=== PATIENT | female | born 1970 | race Caucasian/White ===

== ENCOUNTER → 2024-12-02 | Outpatient (CLI) | payer BC ==
--- NOTE | 2024-12-03 08:46 | CTL ---
EXAMINATION TYPE: CT Low Dose Lung DATE OF EXAM: 12/02/2024 4:14 PM COMPARISON: None. SCREENING VISIT: Initial CT DIAGNOSTIC QUALITY: Satisfactory CLINICAL INDICATION: Female, 54 years old with history of Z12.2 Screening; Z87.891, Former smoker, 1 ppd x 20 years, Lung cancer screening, History of tobacco use. TECHNIQUE: Low dose computed tomography scan was performed through the chest at 1 mm thick sections a nd reconstructed images in the coronal plane at 1 mm thick sections. Contrast used: mL of , (none if empty) Oral contrast used: (none if empty) CT DLP: 89.6 mGycm, Automated exposure control for dose reduction was used. CT CTDI: 2.6 mGy, Automated exposure control for dose reduction was used. FINDINGS: LUNG NODULES: None. LUNGS: COPD: Severity: None Fibrosis: Severity: None Lymph nodes: None Other findings: None RIGHT PLEURAL SPACE: Effusion: None Calcification: None Thickening: None Pneumothorax: None LEFT PLEURAL SPACE: Effusion: None Calcification: None Thickening: None Pneumothorax: None HEART: Other: Ascending thoracic aorta at the level the main pulmonary artery measures 3.1 cm. The main pul monary artery at the bifurcation measures 2.4 cm. Heart Size: Normal Coronary calcification: Pericardial effusion: None OTHER FINDINGS: Upper abdomen: Normal Bony thorax: Normal Supraclavicular region: Normal IMPRESSION: No suspicious changes low-dose CT chest FOLLOW UP CT CHEST RECOMMENDATION: Low dose CT chest one year CT LUNG RAD: Lung-Rad 1 Negative [facility], Workstation: [facility], 12/03/2024 8:44 AM
== END | disposition home or self-care (01) ==
LOC: RADCTMAIN 15:49
PROVIDERS: ATTEND Family Medicine
DX: Z12.2 Encounter for screening for malignant neoplasm of respiratory organs (principal); Z87.891 Personal history of nicotine dependence
CPT/HCPCS: 71271

== ENCOUNTER 2025-01-24 12:53 | Observation (INO) | payer BC ==
--- NOTE | 2025-01-24 13:11 | ED ---
General Adult HPI - General Chief complaint: Weakness Stated complaint: Abd pain Time Seen by Provider: 01/24/25 13:01 Source: patient, RN notes reviewed, old records reviewed Mode of arrival: ambulatory Limitations: no limitations - History of Present Illness Initial comments: 54-year-old female presenting with poor appetite and nausea. Patient started Mounjaro several months ago and has had persistent nausea and poor appetite as well as very little stool output since initiating this medication. She denies significant abdominal pain or vomiting. This is predominantly nausea and loss of appetite. No fever. She is concerned she may be dehydrated due to poor intake. She states she has lost approximately 35 pounds. - Related Data Allergies Allergy/AdvReac Type Severity Reaction Status Date / Time Penicillins Allergy Unknown Verified 01/24/25 13:00 Review of Systems ROS Statement: Those systems with pertinent positive or pertinent negative responses have been documented in the HPI. ROS Other: All systems not noted in ROS Statement are negative. Past Medical History Past Medical History: Diabetes Mellitus History of Any Multi-Drug Resistant Organisms: None Reported Past Surgical History: Section, Tonsillectomy Additional Past Surgical History / Comment(s): breast reduction, Past Psychological History: No Psychological Hx Reported Smoking Status: Never smoker Past Alcohol Use History: None Reported Past Drug Use History: None Reported General Exam Limitations: no limitations General appearance: alert, in no apparent distress Head exam: Present: atraumatic, normocephalic Eye exam: Present: normal appearance, PERRL ENT exam: Present: mucous membranes dry Neck exam: Present: normal inspection. Absent: tenderness, meningismus Respiratory exam: Present: normal lung sounds bilaterally. Absent: respiratory distress, wheezes Cardiovascular Exam: Present: normal rhythm, tachycardia GI/Abdominal exam: Present: soft. Absent: distended, tenderness, guarding Neurological exam: Present: alert, oriented X3 Psychiatric exam: Present: normal affect, normal mood Skin exam: Present: warm, dry, intact. Absent: cyanosis, diaphoretic Course Vital Signs 01/24/25 12:56 Temperature 97.5 F L Pulse Rate 116 H Respiratory 18 Rate Blood Pressure 139/96 O2 Sat by Pulse 94 L Oximetry Medical Decision Making - Medical Decision Making Was pt. sent in by a medical professional or institution (, PA, ELECTRONIC PARTS DESIGNER, urgent care, hospital, or group home...) When possible be specific @ -No Did you speak to anyone other than the patient for history (EMS, parent, family, police, friend...)? What history was obtained from this source @ -No Did you review nursing and triage notes (agree or disagree)? Why? @ -I reviewed and agree with nursing and triage notes Were old charts reviewed (outside hosp., previous admission, EMS record, old EKG, old radiological studies, urgent care reports/EKG's, group home records)? Report findings @ -No old charts were reviewed Differential Weakness: Hypoglycemia, shock, sepsis, hyponatremia, anemia, infection, IL, ETOH, adverse medicine reaction, overdose, stroke, this is not meant to be an all-inclusive list. EKG interpreted by me (3pts min.). @ -As above X-rays interpreted by me (1pt min.). @ -None done CT interpreted by me (1pt min.). @ -None done U/S interpreted by me (1pt. min.). @ -None done What testing was considered but not performed or refused? (CT, X-rays, U/S, labs)? Why? @ -None What meds were considered but not given or refused? Why? @ -None Did you discuss the management of the patient with other professionals (professionals i.e. , PA, ELECTRONIC PARTS DESIGNER, lab, RT, psych nurse, social studies teacher, catalyst manufacturing operator, teacher, learning officer, correctional counselor/case manager)? Give summary @ -Dr. Calhoun Was smoking cessation discussed for >3mins.? @ -No Was critical care preformed (if so, how long)? @ -No Were there social determinants of health that impacted care today? How? (Homelessness, low income, unemployed, alcoholism, drug addiction, transportation, low edu. Level, literacy, decrease access to med. care, custodial, rehab)? @ -No Was there de-escalation of care discussed even if they declined (Discuss DNR or withdrawal of care, Hospice)? DNR status @ -No What co-morbidities impacted this encounter? (DM, HTN, Smoking, COPD, CAD, Cancer, CVA, ARF, Chemo, Hep., AIDS, mental health diagnosis, sleep apnea, morbid obesity)? @Diabetes, weight loss secondary to Mounjaro Was patient admitted / discharged? Hospital course, mention meds given and route, prescriptions, significant lab abnormalities, going to OR and other pertinent info. @ -54-year-old female with poor intake, nausea after being on Mounjaro. Patient is mildly tachycardic with otherwise stable vitals. She does appear dehydrated. Laboratory testing reveals normal CBC, CMP shows anion gap metabolic acidosis. Normal blood glucose. Urinalysis, venous gas, and acetone levels as well as lactic acid has been ordered, results pending. Patient will be observed for hydration. Likely mixed acidosis from starvation ketosis, dehydration. Undiagnosed new problem with uncertain prognosis? @ -No Drug Therapy requiring intensive monitoring for toxicity (Heparin, Nitro, Insulin, Cardizem)? @ -No Were any procedures done? @ -No Diagnosis/symptom? @ -Dehydration, metabolic acidosis Acute, or Chronic, or Acute on Chronic? @ -Acute Uncomplicated (without systemic symptoms) or Complicated (systemic symptoms)? @ -Default Side effects of treatment? @ -No Exacerbation, Progression, or Severe Exacerbation? @ -No Poses a threat to life or bodily function? How? (Chest pain, USA, IL, pneumonia, PE, COPD, DKA, ARF, appy, cholecystitis, CVA, Diverticulitis, Homicidal, Suicidal, threat to staff... and all critical care pts) @ -[Yes, hypovolemia, acidosis - Lab Data Result diagrams: 01/24/25 13:29 01/24/25 13:29 Lab Results 01/24/25 01/24/25 Range/Units 13:29 13:29 WBC 7.4 (3.8-10.6) k/uL RBC 5.93 H (3.80-5.40) m/uL Hgb 16.7 H (11.4-16.0) gm/dL Hct 49.5 H (34.0-46.0) % MCV 83.4 (80.0-100.0) fL MCH 28.2 (25.0-35.0) pg MCHC 33.8 (31.0-37.0) g/dL RDW 14.5 (11.5-15.5) % Plt Count 295 (150-450) k/uL MPV 8.0 Neutrophils % 71 % Lymphocytes % 22 % Monocytes % 4 % Eosinophils % 1 % Basophils % 1 % Neutrophils # 5.3 (1.3-7.7) k/uL Lymphocytes # 1.6 (1.0-4.8) k/uL Monocytes # 0.3 (0-1.0) k/uL Eosinophils # 0.1 (0-0.7) k/uL Basophils # 0.1 (0-0.2) k/uL Sodium 134 L (137-145) mmol/L Potassium 4.0 (3.5-5.1) mmol/L Chloride 96 L (98-107) mmol/L Carbon Dioxide 15 L (22-30) mmol/L Anion Gap 23 mmol/L BUN 13 (7-17) mg/dL Creatinine 0.58 (0.52-1.04) mg/dL Est GFR (CKD-EPI)AfAm >90 (>60 ml/min/1.73 sqM) Est GFR (CKD-EPI)NonAf >90 (>60 ml/min/1.73 sqM) Glucose 96 (74-99) mg/dL Calcium 9.8 (8.4-10.2) mg/dL Magnesium 1.8 (1.6-2.3) mg/dL Total Bilirubin 0.8 (0.2-1.3) mg/dL AST 35 (14-36) U/L ALT 31 (4-34) U/L Alkaline Phosphatase 78 (38-126) U/L Total Protein 7.7 (6.3-8.2) g/dL Albumin 4.6 (3.5-5.0) g/dL Disposition Clinical Impression: Dehydration, High anion gap metabolic acidosis Disposition: ADMITTED IP TO THIS [facility] Condition: Stable Is patient prescribed a controlled substance at d/c from ED?: No Referrals: Nj Castañeda MD [Primary Care Provider] - 1-2 days Time of Disposition: 14:48
[2025-01-24] MEDS: SODIUM CHLORIDE 0.9% 1,000 ML IV ONE (13:31)
[2025-01-24 13:48] LABS: Basophils # (A) 0.1 k/uL (0-0.2); Basophils % (A) 1 %; Eosinophils # (A) 0.1 k/uL (0-0.7); Eosinophils % (A) 1 %; HCT 49.5 % (34.0-46.0); HGB 16.7 gm/dL (11.4-16.0); Lymphocytes # (A) 1.6 k/uL (1.0-4.8); Lymphocytes % (A) 22 %; MCH 28.2 pg (25.0-35.0); MCHC 33.8 g/dL (31.0-37.0); MCV 83.4 fL (80.0-100.0); Monocytes # (A) 0.3 k/uL (0-1.0); Monocytes % (A) 4 %; Neutrophils # (A) 5.3 k/uL (1.3-7.7); Neutrophils % (A) 71 %; Platelet Count 295 k/uL (150-450); RBC 5.93 m/uL (3.80-5.40); RDW 14.5 % (11.5-15.5); WBC 7.4 k/uL (3.8-10.6)
--- NOTE | 2025-01-24 13:53 | XR ---
EXAMINATION TYPE: XR KUB DATE OF EXAM: 01/24/2025 1:48 PM COMPARISON: None. CLINICAL INDICATION: Female, 54 years old with history of Constipation, TECHNIQUE: Single view of the abdomen. FINDINGS: Small bowel demonstrates no evidence for dilatation or air fluid levels. Gas and fecal material is seen in non-distended colon. No convincing evidence for pneumoperitoneum. No unusual calcifications. The lung bases are clear. The osseous structures are intact. IMPRESSION: 1. Overall nonobstructive bowel gas pattern. [facility], , 01/24/2025 1:51 PM
[2025-01-24 13:58] LABS: ALT 31 U/L (4-34); AST 35 U/L (14-36); African American GFR (CKD) >90 (>60 ml/min/1.73 sqM); Albumin 4.6 g/dL (3.5-5.0); Alkaline Phosphatase 78 U/L (38-126); Anion Gap 23 mmol/L; Blood Urea Nitrogen 13 mg/dL (7-17); Calcium 9.8 mg/dL (8.4-10.2); Carbon Dioxide 15 mmol/L (22-30); Chloride 96 mmol/L (98-107); Glucose 96 mg/dL (74-99); Magnesium 1.8 mg/dL (1.6-2.3); Non-African American GFR(CKD) >90 (>60 ml/min/1.73 sqM); Sodium 134 mmol/L (137-145); Total Bilirubin 0.8 mg/dL (0.2-1.3); Total Protein 7.7 g/dL (6.3-8.2)
[2025-01-24 14:21] LABS: Appearance,Urine Cloudy (Clear); Bacteria,Urine Occasional /hpf; Bilirubin,Urine 1+ (Negative); Blood,Urine Trace (Negative); Color,Urine Yellow; Glucose,Urine (UA) Negative (Negative); Hyaline Casts,Urine 14 /lpf (0-2); Ketones,Urine 4+ (Negative); Leukocyte Esterase,Urine Negative (Negative); Mucus,Urine Moderate /hpf; Nitrite,Urine Negative (Negative); PH, Urine 5.5 (5.0-8.0); Protein,Urine 1+ (Negative); RBC,Urine 1 /hpf (0-5); Specific Gravity,Urine 1.021 (1.001-1.035); Squamous Epithelial Cell,Urine 8 /hpf (0-4); WBC,Urine 3 /hpf (0-5)
[2025-01-24] MEDS ORDERED: ACETAMINOPHEN TAB 325 MG TAB PO PRN (14:45)
[2025-01-24] MEDS ORDERED: NALOXONE 0.4 MG/ML 1 ML VIAL IV PRN (14:45)
[2025-01-24 15:10] LABS: VBG PH 7.34 (7.31-7.41)
[2025-01-24] MEDS: SODIUM CHLORIDE 0.9% 1,000 ML IV SCH (15:54)
--- NOTE | 2025-01-24 17:04 | P.HPIM ---
History of Present Illness H&P Date: 01/24/25 History of Presenting Illness: Patient is a pleasant 54-year-old female with a past medical history of type II hyf-qebkaxd-nvggtefhj diabetes mellitus. She presented to the emergency department with a chief complaint of intractable nausea and vomiting and poor oral intake. Patient reports concerns of dehydration. Reports that she was started on Mounjaro 2 months ago initially was taking 2.5 mg daily without any side effects. Patient reports 2 weeks ago she was started on 5 mg daily and instantly suffered from severe anorexia unable to tolerate oral intake, nausea, vomiting, constipation, acid reflux, and abdominal bloating. Patient reports she continued this medication as she decreased her hemoglobin A1c from 6.5% down to 5.1% and lost a total of 33 pounds. Patient reports she was due for her next dose on Thursday but went to her PCPs office on Thursday secondary to these complaints and was told to stop medication with plans to restart at lower dose possibly in 1 month. Patient reports despite missing her dose and not taking this medication she continued to have no appetite accompanied by nausea, vomiting, and constipation so she came to the emergency department for evaluation. Patient reports last bowel movement was approximately 1 week ago and was round and firm. She reports passing flatus and frequent eructations but denies experiencing any abdominal pain or discomfort reports just generalized bloating. She denies hematemesis, melena, or hematochezia. She denies having any fevers, chills, diaphoresis, headache, lightheadedness, dizziness, chest pain, palpitations, shortness of breath, cough or congestion, abdominal pain or discomfort, or experiencing any numbness/tingling/weakness/swelling in her extremities. Upon arrival to our facility, patient underwent evaluation in the emergency department. Vital signs upon arrival show blood pressure 139/96, heart rate 116, respiratory rate 18, temp 97.5 F, and SpO2 of 94% on room air. KUB completed showing overall nonobstructive bowel gas pattern, moderate stool throughout colon but no evidence of distention, dilation, or air-fluid levels. Labs completed and reviewed. CBC showing elevated hemoglobin of 16.7 and hematocrit of 49.5. BMP showing hyponatremia with sodium of 134 and high anion gap metabolic acidosis with chloride 96, bicarb of 15, and anion gap of 23. Magnesium was 1.8. Liver profile unremarkable. Urinalysis was a contaminated specimen but did show positive for ketones, trace blood, and 1+ protein and bilirubin but negative for infection. Patient was admitted under our services for dehydration and high anion gap metabolic acidosis likely starvation ketosis. Review of systems: Pertinent positives and negatives as discussed in HPI, a complete review of systems was performed and all other systems are negative. Physical exam: Vital signs reviewed and stable. General: Nontoxic, no distress and appears stated age. Derm: Skin warm and dry, normal coloration for ethnicity. Head: Atraumatic, normocephalic and symmetric. Eyes: EOM's intact, no lid lag, and anicteric sclera Mouth: no lip lesions, mucus membranes moist Cardiovascular: regular rate and rhythm with normal S1S2, no murmur, positive posterior tibial pulses bilaterally, and cap refill < 2 seconds. Lungs: Respirations even, regular, and unlabored on room air. Lungs CTA bilaterally, no rhonchi, no rales, no wheezing, and no accessory muscle usage. Abdominal: soft, nontender to palpation, no guarding, no appreciable organomegaly Ext: ROM intact. No gross muscle atrophy, no edema, no contractures Neuro: Speech clear, face symmetrical and CN II-XII grossly intact with no noted focal neuro deficits Psych: Alert and oriented to person, place, time, and situation. Appropriate and pleasant affect. Assessment and Plan of Care: Dehydration with hyponatremia High anion gap metabolic acidosis, likely starvation ketosis Gastroparesis resulting in constipation Drug-induced nausea and vomiting -Patient admitted to observation unit for treatment of dehydration with hyponat remia and high anion gap metabolic acidosis with aggressive IV fluid hydration. -Hold Mounjaro -Patient received a 1 L bolus of 0.9% normal saline in the ED and started on 0.9% normal saline at 130 cc/h. -Order placed for Reglan 10 mg IVP every 6 hours to promote bowel motility and treatment of nausea. -Order placed for lactulose 30 g p.o. x 1 dose followed by MiraLAX 17 g daily. -Continue close monitoring with repeat a.m. labs. -Follow-up on lactic acid and urine acetone. Data and imaging reviewed: -As stated above in HPI The patient is admitted with an anticipated less than 2 midnight stay for evaluation of dehydration, metabolic acidosis, and gastroparesis CODE STATUS: Full code DVT prophylaxis: Lovenox Discussed with: Patient, RN and ED physician Anticipated discharge date: Likely tomorrow morning Anticipated discharge place: Home Patient was seen independently by Nurse Practitioner. This document was prepared using [employer] dictation software. Please allow for errors in cigarette paper tester while rare they do occur. Narendra Villa NP rendered care for this patient independently, reviewed the findings and plan as documented in the note above and agree with plan. I did not physically speak with or examine the patient on this date. Past Medical History Past Medical History: Diabetes Mellitus History of Any Multi-Drug Resistant Organisms: None Reported Past Surgical History: Section, Tonsillectomy Additional Past Surgical History / Comment(s): breast reduction, Past Psychological History: No Psychological Hx Reported Smoking Status: Never smoker Past Alcohol Use History: None Reported Past Drug Use History: None Reported Medications and Allergies Home Medications Medication Instructions Recorded Confirmed Type Estriol 2 pump TOPICAL DAILY 01/24/25 01/24/25 History 80%/Gquqeulxk-Efrmioufsoem-Xarkxgthlral 1.25-30-0.5mg/Gm Allergies Allergy/AdvReac Type Severity Reaction Status Date / Time Penicillins Allergy Rash/Hives Verified 01/24/25 15:16 Physical Exam Vitals: Vital Signs Temp Pulse Resp BP Pulse Ox 01/24/25 12:56 97.5 F L 116 H 18 139/96 94 L Intake and Output 01/23/25 01/24/25 01/24/25 22:59 06:59 14:59 Other: Weight 76.657 kg Results CBC & Chem 7: 01/24/25 13:29 01/24/25 13:29 Labs: Abnormal Lab Results - Last 24 Hours (Table) 01/24/25 01/24/25 Range/Units 13:29 13:29 RBC 5.93 H (3.80-5.40) m/uL Hgb 16.7 H (11.4-16.0) gm/dL Hct 49.5 H (34.0-46.0) % Sodium 134 L (137-145) mmol/L Chloride 96 L (98-107) mmol/L Carbon Dioxide 15 L (22-30) mmol/L
[2025-01-24] MEDS: LACTULOSE 20 GM/30 ML CUP PO ONE (17:13)
[2025-01-24] MEDS: METOCLOPRAMIDE 5 MG/ML 2 ML VIAL IVP SCH (17:39)
[2025-01-24 20:05] LABS: Glucose,Whole Blood 86 mg/dL (70-110)
[2025-01-25 03:03] VITALS: RESP 17
[2025-01-25 06:12] LABS: Basophils % (A) 0 %; Eosinophils # (A) 0.1 k/uL (0-0.7); Eosinophils % (A) 2 %; HCT 44.6 % (34.0-46.0); HGB 14.7 gm/dL (11.4-16.0); Lymphocytes # (A) 1.8 k/uL (1.0-4.8); Lymphocytes % (A) 32 %; MCH 27.9 pg (25.0-35.0); MCV 84.5 fL (80.0-100.0); Mean Platelet Volume 7.7; Monocytes # (A) 0.4 k/uL (0-1.0); Monocytes % (A) 7 %; Neutrophils # (A) 3.1 k/uL (1.3-7.7); Neutrophils % (A) 56 %; Platelet Count 225 k/uL (150-450); RBC 5.27 m/uL (3.80-5.40); RDW 14.6 % (11.5-15.5); WBC 5.6 k/uL (3.8-10.6)
[2025-01-25 06:20] LABS: ALT 24 U/L (4-34); AST 26 U/L (14-36); African American GFR (CKD) >90 (>60 ml/min/1.73 sqM); Albumin 3.3 g/dL (3.5-5.0); Alkaline Phosphatase 62 U/L (38-126); Anion Gap 13 mmol/L; Blood Urea Nitrogen 8 mg/dL (7-17); Calcium 8.7 mg/dL (8.4-10.2); Carbon Dioxide 21 mmol/L (22-30); Chloride 101 mmol/L (98-107); Glucose 68 mg/dL (74-99); Magnesium 1.9 mg/dL (1.6-2.3); Non-African American GFR(CKD) >90 (>60 ml/min/1.73 sqM); Potassium 3.9 mmol/L (3.5-5.1); Sodium 135 mmol/L (137-145); Total Bilirubin 0.6 mg/dL (0.2-1.3); Total Protein 5.8 g/dL (6.3-8.2)
[2025-01-25 07:58] VITALS: BP 108/70; PULSE 76; TEMP 97.9
[2025-01-25 09:04] LABS: African American GFR (CKD) >90 (>60 ml/min/1.73 sqM); Anion Gap 14 mmol/L; Blood Urea Nitrogen 8 mg/dL (7-17); Calcium 8.9 mg/dL (8.4-10.2); Carbon Dioxide 18 mmol/L (22-30); Chloride 104 mmol/L (98-107); Glucose 72 mg/dL (74-99); Non-African American GFR(CKD) >90 (>60 ml/min/1.73 sqM); Potassium 4.2 mmol/L (3.5-5.1); Sodium 136 mmol/L (137-145)
[2025-01-25] MEDS: polyethylene glycoL 3350 17 GM POWD.PACK PO SCH (10:28)
[2025-01-25] MEDS: ENOXAPARIN 40 MG/0.4 ML SYRINGE SQ SCH (10:28)
--- NOTE | 2025-01-25 12:23 | P.DS ---
Providers Date of admission: 01/24/25 14:45 Expected date of discharge: 01/25/25 Attending physician: Jorge Luis Calhoun Primary care physician: Nj Castañeda Hospital Course: Discharge Diagnosis: Dehydration with hyponatremia. Improved with IV hydration. Patient discharged with prescription for repeat BMP in 2 days with results to be sent to PCP, Dr. Castañeda for follow-up and management. High anion gap metabolic acidosis, likely starvation ketosis. Improved with IV fluid hydration. Repeat morning labs completed showing improvement of high anion gap metabolic acidosis with BMP showing sodium of 135, chloride of 101, bicarb of 21, and anion gap of 13. Gastroparesis resulting in constipation. Resolved. Patient reports having a large BM. Patient discharged home on MiraLAX 17 g daily. Mild Hypoglycemia. Resolved. Preprandial blood glucose prior to discharge was 84. Drug-induced nausea and vomiting. Recommend stopping Mounjaro as discussed with patient, will defer to patient's PCP on whether or not this medication is restarted at a lower dose at a later date. Discussed with patient recommend cessation of use. Patient had full resolution of nausea and vomiting. Was discharged home with a prescription for as needed Reglan if nausea returns. Sinus tachycardia. Resolved with IV fluid hydration. Hospital Course: Patient is a pleasant 54-year-old female with a past medical history of type II vyp-cjfokpf-gbeiwlmih diabetes mellitus. She presented to the emergency department with a chief complaint of intractable nausea and vomiting and poor oral intake. Patient reports concerns of dehydration. Reports that she was started on Mounjaro 2 months ago initially was taking 2.5 mg daily without any side effects. Patient reports 2 weeks ago she was started on 5 mg daily and instantly suffered from severe anorexia unable to tolerate oral intake, nausea, vomiting, constipation, acid reflux, and abdominal bloating. Patient reports she continued this medication as she decreased her hemoglobin A1c from 6.5% down to 5.1% and lost a total of 33 pounds. Patient reports she was due for her next dose on Thursday but went to her PCPs office on Thursday secondary to these complaints and was told to stop medication with plans to restart at lower dose possibly in 1 month. Patient reports despite missing her dose and not taking this medication she continued to have no appetite accompanied by nausea, vomiting, and constipation so she came to the emergency department for evaluation. Patient reports last bowel movement was approximately 1 week ago and was round and firm. She reports passing flatus and frequent eructations but denies experiencing any abdominal pain or discomfort reports just generalized bloating. She denies hematemesis, melena, or hematochezia. She denies having any fevers, chills, diaphoresis, headache, lightheadedness, dizziness, chest pain, palpitations, shortness of breath, cough or congestion, abdominal pain or discomfort, or experiencing any numbness/tingling/weakness/swelling in her extremities. Upon arrival to our facility, patient underwent evaluation in the emergency department. Vital signs upon arrival show blood pressure 139/96, heart rate 116, respiratory rate 18, temp 97.5 F, and SpO2 of 94% on room air. KUB completed showing overall nonobstructive bowel gas pattern, moderate stool throughout colon but no evidence of distention, dilation, or air-fluid levels. Labs completed and reviewed. CBC showing elevated hemoglobin of 16.7 and hematocrit of 49.5. BMP showing hyponatremia with sodium of 134 and high anion gap metabolic acidosis with chloride 96, bicarb of 15, and anion gap of 23. Magnesium was 1.8. Liver profile unremarkable. Urinalysis was a contaminated specimen but did show positive for ketones, trace blood, and 1+ protein and bilirubin but negative for infection. Lactic acid was negative. Patient was admitted under our services for dehydration and high anion gap metabolic acidosis likely starvation ketosis. Urine acetone was positive. Patient having episodes of hypoglycemia. Patient provided with aggressive IV fluid hydration. She was provided with lactulose and started on daily MiraLAX resulting in resolution of constipation/gastroparesis. Patient reports having a large bowel movement and resolution of abdominal bloating, nausea, and denied any further episodes of vomiting since arrival to our facility. Her diet was slowly advanced and she is tolerating oral intake. Patient reports feeling great and ready for discharge. Repeat morning labs completed showing improvement of high anion gap metabolic acidosis with BMP showing sodium of 135, chloride of 101, bicarb of 21, and anion gap of 13. Physical exam: Vital signs reviewed and stable. General: Nontoxic, no distress and appears stated age. Derm: Skin warm and dry, normal coloration for ethnicity. Head: Atraumatic, normocephalic and symmetric. Eyes: EOM's intact, no lid lag, and anicteric sclera Mouth: no lip lesions, mucus membranes moist Cardiovascular: regular rate and rhythm with normal S1S2, no murmur, positive posterior tibial pulses bilaterally, and cap refill < 2 seconds. Lungs: Respirations even, regular, and unlabored on room air. Lungs CTA bilaterally, no rhonchi, no rales, no wheezing, and no accessory muscle usage. Abdominal: soft, nontender to palpation, no guarding, no appreciable organomegaly Ext: ROM intact. No gross muscle atrophy, no edema, no contractures Neuro: Speech clear, face symmetrical and CN II-XII grossly intact with no noted focal neuro deficits Psych: Alert and oriented to person, place, time, and situation. Appropriate and pleasant affect. A total of 33 minutes of time were spent preparing this complex discharge summary. Pt was discharged on 01/25/2025 at 12:10 PM. Patient was seen independently by Nurse Practitioner. This document was prepared using [employer] dictation software. Please allow for errors in banbury mill operator while rare they do occur. Narendra Villa NP rendered care for this patient independently, reviewed the findings and plan as documented in the note above. I did not physically speak with or examine the patient on this date. Patient Condition at Discharge: Stable Plan - Discharge Summary Discharge Rx Participant: Yes New Discharge Prescriptions: New polyethylene glycoL 3350 [Miralax] 17 gm PO DAILY 30 Days #30 packet Metoclopramide HCl [Reglan] 5 mg PO Q6H PRN #20 tablet PRN Reason: Nausea Continue Estriol 80%/Dfiuvfyzm-Vztbbmmhsvfe-Mllbgqahqgop 1.25-30-0.5mg/Gm 2 pump TOPICAL DAILY Discharge Medication List Estriol 80%/Xtpdsokwa-Dftdrkzjauuu-Ohxlfauipeyq 1.25-30-0.5mg/Gm 2 pump TOPICAL DAILY 01/24/25 [History] Metoclopramide HCl [Reglan] 5 mg PO Q6H PRN #20 tablet 01/25/25 [Rx] polyethylene glycoL 3350 [Miralax] 17 gm PO DAILY 30 Days #30 packet 01/25/25 [Rx] Follow up Appointment(s)/Referral(s): Nj Castañeda MD [Primary Care Provider] - 1-2 days Ambulatory/Diagnostic Orders: Basic Metabolic Panel [LAB.AMB] Time Frame: 2 Days, Location: None Selected Activity/Diet/Wound Care/Special Instructions: Activity: As tolerated. Diet: As we discussed at bedside, recommend smaller more frequent meals and increased hydration. Advance diet as tolerated. Remember the signs/symptoms of hypo glycemia as we discussed and continue smaller more frequent meals to prevent further episodes of hypoglycemia. Special Instructions: Recommend stopping Mounjaro at this time and will leave up to the discretion of your PCP if it is restarted at a later date on a lower dose. Recommend MiraLAX 17 g daily. Thank you for allowing us to participate in your care, it was truly a pleasure having you for our patient!!! Discharge Disposition: HOME SELF-CARE
[2025-01-25 12:47] LABS: Glucose,Whole Blood 84 mg/dL (70-110)
== END 2025-01-25 13:20 | disposition home or self-care (01) ==
LOC: EC 12:53 → 6NMEDSUR 14:45 → 1SOBS 19:15
PROVIDERS: ADMIT Student in an Organized Health Care Education/Training Program; ATTEND Student in an Organized Health Care Education/Training Program
DX: E86.0 Dehydration (principal); E87.1 Hypo-osmolality and hyponatremia; E11.43 Type 2 diabetes mellitus with diabetic autonomic (poly)neuropathy; K31.84 Gastroparesis; E11.649 Type 2 diabetes mellitus with hypoglycemia without coma; E87.20 Acidosis, unspecified; R11.2 Nausea with vomiting, unspecified; T38.3X5A Adverse effect of insulin and oral hypoglycemic [antidiabetic] drugs, initial encounter; K59.00 Constipation, unspecified; K21.9 Gastro-esophageal reflux disease without esophagitis; Z79.85 Long-term (current) use of injectable non-insulin antidiabetic drugs; Z88.0 Allergy status to penicillin
CPT/HCPCS: 96372; 96376; 96361; 96374; 99285; 36415; 80053 ×2; 80048; 82803; 82009; 83605; 83735 ×2; 85025 ×2; 81001; 74018; G0378 ×3; J2765 ×2; J1650

== ENCOUNTER 2025-02-17 15:13 | Inpatient (IN) | payer BC ==
[2025-02-17 15:42] LABS: Glucose,Whole Blood 173 mg/dL (70-110)
[2025-02-17 17:22] LABS: Appearance,Urine Clear (Clear); Bilirubin,Urine 1+ (Negative); Blood,Urine Negative (Negative); Color,Urine Dark Brown; Glucose,Urine (UA) Negative (Negative); Ketones,Urine 2+ (Negative); Leukocyte Esterase,Urine Negative (Negative); Nitrite,Urine Negative (Negative); Protein,Urine Trace (Negative); Specific Gravity,Urine 1.026 (1.001-1.035)
[2025-02-17 17:33] LABS: Amphetamine Screen,Urine Not Detected (NotDetected); Barbiturate Screen,Urine Not Detected (NotDetected); Benzodiazepines Screen,Urine Not Detected (NotDetected); Cocaine Screen,Urine Not Detected (NotDetected); Methadone Screen, Urine Not Detected (NotDetected); Opiate Screen,Urine Not Detected (NotDetected); Oxycodone Screen, Urine Not Detected (NotDetected); Phencyclidine Screen,Urine Not Detected (NotDetected); Tricyclic Antidepressant,Urine Not Detected (NotDetected); Urn Cannabinoid Scrn Not Detected (NotDetected)
[2025-02-17] MEDS: SODIUM CHLORIDE 0.9% 1,000 ML IV ONE (17:37)
[2025-02-17 18:06] LABS: HCT 49.9 % (37.2-46.3); HGB 17.5 g/dL (12.0-15.0); MCH 28.2 pg (27.0-32.0); MCHC 35.1 g/dL (32.0-37.0); MCV 80.5 fL (80.0-97.0); Mean Platelet Volume 9.8 fL (9.5-12.2); Platelet Count 218 10*3/uL (140-440); RDW 15.1 % (11.5-14.5); WBC 3.92 10*3/uL (4.50-10.00)
[2025-02-17 18:16] LABS: INR 1.4 (<1.2); Partial Thromboplastin Time 23.9 sec (22.0-30.0); Prothrombin Time 14.7 sec (10.0-12.5)
[2025-02-17 18:25] LABS: ALT 45 U/L (4-34); AST 36 U/L (14-36); Acetaminophen <10.0 ug/mL; African American GFR (CKD) >90 (>60 ml/min/1.73 sqM); Albumin 3.4 g/dL (3.5-5.0); Alcohol <10 mg/dL; Alkaline Phosphatase 95 U/L (38-126); Anion Gap 10 mmol/L; Blood Urea Nitrogen 28 mg/dL (7-17); Calcium 9.3 mg/dL (8.4-10.2); Carbon Dioxide 29 mmol/L (22-30); Chloride 97 mmol/L (98-107); Glucose 125 mg/dL (74-99); Non-African American GFR(CKD) >90 (>60 ml/min/1.73 sqM); Potassium 3.1 mmol/L (3.5-5.1); Salicylate <1.0 mg/dL; Sodium 136 mmol/L (137-145); Total Bilirubin 1.2 mg/dL (0.2-1.3); Total Protein 6.3 g/dL (6.3-8.2)
--- NOTE | 2025-02-17 18:34 | CT ---
EXAMINATION TYPE: CT brain wo con DATE OF EXAM: 02/17/2025 6:21 PM COMPARISON: None. CLINICAL INDICATION: Female, 54 years old with history of Altered mental status, AMS. TECHNIQUE: CT of the brain is performed utilizing 3 mm thick sections through the posterior fossa and 3 mm thick sections through the remaining calvarium. Study is performed within 24 hours of arrival to the hospital. Contrast used: mL of , (none if empty) CT DLP: 1039 mGycm, Automated exposure control for dose reduction was used. FINDINGS: No abnormal hyperdensity is present to suggest an acute intracranial hemorrhage. No mass lesion is evident. No acute infarcts are evident. Ventricles and sulci are appropriate for the patient age. Small retention cyst is within the posterior inferior visualized right maxillary sinus. Paranasal sin uses and mastoid air cells within the [id number] are otherwise clear. IMPRESSION: 1. No acute intracranial process. Follow up MRI can be performed as clinically indicated. [facility], , 02/17/2025 6:32 PM
--- NOTE | 2025-02-17 19:32 | XR ---
EXAMINATION TYPE: XR chest 2V DATE OF EXAM: 02/17/2025 6:23 PM COMPARISON: None. CLINICAL INDICATION: Female, 54 years old with history of altered mental status, TECHNIQUE: XR chest 2V view(s) obtained. FINDINGS: The heart size is normal. The pulmonary vasculature is normal. The lungs are clear. IMPRESSION: 1. No acute pulmonary process. [facility], , 02/17/2025 7:29 PM
[2025-02-17 20:09] LABS: Band Neutrophils % 2 %; Lymphocytes # (M) 1.14 k/uL (1.0-4.8); Monocytes # (M) 0.51 k/uL (0-1.0); Neutrophils # (M) 2.27 k/uL (1.3-7.7); Neutrophils % (M) 56 %; Nucleated Red Blood Cells 0 /100 WBC (0-0); Total Cells Counted 100
[2025-02-17 20:10] LABS: Large Platelets Present
--- NOTE | 2025-02-17 20:45 | ED ---
Altered Mental Status HPI - General Chief Complaint: Altered Mental Status Stated Complaint: weakness Time Seen by Provider: 02/17/25 15:20 Source: patient, EMS Mode of arrival: EMS Limitations: altered mental status - History of Present Illness Initial Comments: 54-year-old female with past medical history of diabetes previously on Wegovy who presents to the emergency department with altered mental status. Her friend is at bedside and helps provide history. States that the patient was recently hospitalized at [facility] until the second of this month. She was hospitalized for dehydration and gastroparesis. Today the friend received a call stating that the patient was confused and weak. She went over to the house where the patient lives with her 2 grown sons. They had told her that the patient had a fall yesterday as well as one the day before. She is extremely weak and has not been out of bed. She is extremely confused in regards to where she is at and the timeline of recent events. They state that this is not ty pical for the patient as she is typically very well alert and oriented. No report of any fevers. No report of any head injury. Patient is no longer on the Wegovy. She has not had any changes in her other medications. Patient does admit to some nausea. Friend at bedside states that the patient has not eaten anything. She has also not taken any of her medications for hospital discharge. No other alleviating, precipitating modifying factors - Related Data Home Medications Medication Instructions Recorded Confirmed Estriol 2 pump TOPICAL DAILY 01/24/25 02/17/25 80%/Ughbfluax-Wgledpxdxxoo-Ukiaubdmsyam 1.25-30-0.5mg/Gm Famotidine/Ca Carb/Mag Hydrox 1 tab PO BID 02/17/25 02/17/25 [Pepcid Complete Tablet Chew] Magnesium Oxide [Mag-Ox] 400 mg PO DAILY 02/17/25 02/17/25 Metoclopramide HCl [Reglan] 5 mg PO QID 02/17/25 02/17/25 Omeprazole 40 mg PO DAILY 02/17/25 02/17/25 Ondansetron Odt [Zofran ODT] 4 mg PO Q8HR PRN 02/17/25 02/17/25 Potassium Chloride ER [K-Dur 20] 20 meq PO DAILY 02/17/25 02/17/25 Vitamin D+Vitamin K (Unknown Dose) 1 tab PO DAILY 02/17/25 02/17/25 polyethylene glycoL 3350 [Miralax] 17 gm PO DAILY PRN 02/17/25 02/17/25 Previous Rx's Medication Instructions Recorded Folic Acid 1 mg PO DAILY #60 tab 02/24/25 Multivitamins, Thera [Multivitamin 1 each PO DAILY #60 tab 02/24/25 (formulary)] Pyridoxine [Vitamin B-6] 100 mg PO DAILY #60 tab 02/24/25 Thiamine HCl [Vitamin B-1] 100 mg PO DAILY #60 tablet 02/24/25 Vancomycin HCl [Vancocin HCl] 125 mg PO QID 4 Days #18 cap 02/24/25 Allergies Allergy/AdvReac Type Severity Reaction Status Date / Time Penicillins Allergy Rash/Hives Verified 02/17/25 20:49 tree nut [Nut] Allergy Unknown Verified 02/18/25 13:43 Review of Systems ROS Statement: Those systems with pertinent positive or pertinent negative responses have been documented in the HPI. ROS Other: All systems not noted in ROS Statement are negative. Past Medical History Past Medical History: Diabetes Mellitus History of Any Multi-Drug Resistant Organisms: None Reported Past Surgical History: Section, Tonsillectomy Additional Past Surgical History / Comment(s): breast reduction, Past Psychological History: No Psychological Hx Reported Smoking Status: Former smoker Past Alcohol Use History: None Reported Past Drug Use History: None Reported General Exam Limitations: altered mental status General appearance: alert, in no apparent distress Head exam: Present: atraumatic, normocephalic, normal inspection Eye exam: Present: normal appearance ENT exam: Present: normal exam, mucous membranes moist Neck exam: Present: normal inspection. Absent: tenderness, meningismus, lymphadenopathy Respiratory exam: Present: normal lung sounds bilaterally. Absent: respiratory distress, wheezes, rales, rhonchi, stridor Cardiovascular Exam: Present: regular rate, normal rhythm, normal heart sounds. Absent: systolic murmur, diastolic murmur, rubs, gallop, clicks GI/Abdominal exam: Present: soft, normal bowel sounds. Absent: distended, tenderness, guarding, rebound, rigid Neurological exam: Present: alert, other (Patient is oriented x 2 but repetitively forgets which hospital she is at. She does have some repetitive questioning) Psychiatric exam: Present: flat affect Skin exam: Present: warm, dry, intact, normal color. Absent: rash Course Vital Signs 02/17/25 02/17/25 02/17/25 15:18 18:37 19:30 Temperature 97.9 F Pulse Rate 97 98 89 Respiratory 18 18 18 Rate Blood Pressure 127/85 124/94 128/89 O2 Sat by Pulse 97 97 96 Oximetry 02/17/25 02/17/25 21:00 23:00 Temperature 98.3 F Pulse Rate 92 93 Respiratory 20 20 Rate Blood Pressure 124/85 121/92 O2 Sat by Pulse 96 97 Oximetry Medical Decision Making - Medical Decision Making Was pt. sent in by a medical professional or institution (, PA, AM[employer]IA BOX TENDER, urgent care, hospital, or longterm...) When possible be specific @ -No Did you speak to anyone other than the patient for history (EMS, parent, family, police, friend...)? What history was obtained from this source @ -I spoke with the patient's friend for history Did you review nursing and triage notes (agree or disagree)? Why? @ -I reviewed and agree with nursing and triage notes Were old charts reviewed (outside hosp., previous admission, EMS record, old EKG, old radiological studies, urgent care reports/EKG's, longterm records)? Report findings @ -I did review hospital report from January 24 where patient was hospitalized for altered mental status as well Differential Diagnosis (chest pain, altered mental status, abdominal pain women, abdominal pain men, vaginal bleeding, weakness, fever, dyspnea, syncope, headache, dizziness, GI bleed, back pain, seizure, CVA, palpatations, mental health, musculoskeletal)? @ -Differential Altered Mental Status: Hypoglycemia, DKA, hypercapnia, ETOH, overdose, CO poisoning, trauma, myxedema coma, HTN encephalopathy, infection, encephalitis, psychosis, intercranial hemorrhage, hepatic encephalopathy, meningitis, CVA, this is not meant to be an all-inclusive list EKG interpreted by me (3pts min.). @ -Yes and demonstrates sinus rhythm with a rate of 96. LA interval 112. QRS 93. QTc of 407. ST depression in V2 through V6 as well as 2 and aVF X-rays interpreted by me (1pt min.). @ -US which demonstrates no acute process CT interpreted by me (1pt min.). @ -Yes which demonstrates no acute process U/S interpreted by me (1pt. min.). @ -None done What testing was considered but not performed or refused? (CT, X-rays, U/S, labs)? Why? @ -None What meds were considered but not given or refused? Why? @ -None Did you discuss the management of the patient with other professionals (professionals i.e. Dr., PA, [employer] B[employer] TENDER, lab, RT, psych nurse, psychiatric social worker supervisor, open soaper tender, teacher, tax compliance officer, housing case manager)? Give summary @ -Spoke with Dr. Paz who will admit the patient Was smoking cessation discussed for >3mins.? @ -No Was critical care preformed (if so, how long)? @ -No Were there social determinants of health that impacted care today? How? (Homelessness, low income, unemployed, alcoholism, drug addiction, transportation, low edu. Level, literacy, decrease access to med. care, assisted, rehab)? @ -No Was there de-escalation of care discussed even if they declined (Discuss DNR or withdrawal of care, Hospice)? DNR status @ -No What co-morbidities impacted this encounter? (DM, HTN, Smoking, COPD, CAD, Cancer, CVA, ARF, Chemo, Hep., AIDS, mental health diagnosis, sleep apnea, morbid obesity)? @ -Diabetes mellitus Was patient admitted / discharged? Hospital course, mention meds given and route, prescriptions, significant lab abnormalities, going to OR and other pertinent info. @ -Upon arrival patient seen and evaluated in hallway 20. Thorough history and physical exam was performed. IV was established and laboratory studies are conducted. Chest x-ray and CT brain were performed. Studies are within normal limits. Patient is profoundly confused with repetitive questioning. She will be admitted for further evaluation. Spoke with Dr. Paz for admission Undiagnosed new problem with uncertain prognosis? @ -yes Drug Therapy requiring intensive monitoring for toxicity (Heparin, Nitro, Insulin, Cardizem)? @ -No Were any procedures done? @ -No Diagnosis/symptom? @ -Acute encephalopathy Acute, or Chronic, or Acute on Chronic? @ -Acute Uncomplicated (without systemic symptoms) or Complicated (systemic symptoms)? @ -Complicated Side effects of treatment? @ -No Exacerbation, Progression, or Severe Exacerbation? @ -No Poses a threat to life or bodily function? How? (Chest pain, [place], [place], pneumonia, PE, COPD, DKA, ARF, appy, cholecystitis, CVA, Diverticulitis, Homicidal, Suicidal, threat to staff... and all critical care pts) @ -No - Lab Data Result diagrams: 02/24/25 05:28 02/24/25 05:28 Lab Results 02/17/25 02/17/25 02/17/25 Range/Units 15:39 16:46 17:12 WBC (4.50-10.00) 10*3/uL RBC (4.10-5.20) 10*6/uL Hgb (12.0-15.0) g/dL Hct (37.2-46.3) % MCV (80.0-97.0) fL MCH (27.0-32.0) pg MCHC (32.0-37.0) g/dL Plt Count (140-440) 10*3/uL MPV (9.5-12.2) fL Immature Gran % (Auto) % Neutrophils % (Manual) % Band Neuts % (Manual) % Lymphocytes % (Manual) % Monocytes % (Manual) % Immature Gran # (0.00-0.04) 10*3/uL Neutrophils # (Manual) (1.3-7.7) k/uL Lymphocytes # (Manual) (1.0-4.8) k/uL Monocytes # (Manual) (0-1.0) k/uL Nucleated RBCs (0-0) /100 WBC Manual Slide Review Large Platelets PT (10.0-12.5) sec INR (<1.2) APTT (22.0-30.0) sec Sodium (137-145) mmol/L Potassium (3.5-5.1) mmol/L Chloride (98-107) mmol/L Carbon Dioxide (22-30) mmol/L Anion Gap mmol/L BUN (7-17) mg/dL Creatinine (0.52-1.04) mg/dL Est GFR (CKD-EPI)AfAm (>60 ml/min/1.73 sqM) Est GFR (CKD-EPI)NonAf (>60 ml/min/1.73 sqM) Glucose (74-99) mg/dL POC Glucose (mg/dL) 173 H (70-110) mg/dL POC Glu Biomedical Engineer ID Regis Pang Calcium (8.4-10.2) mg/dL Total Bilirubin (0.2-1.3) mg/dL AST (14-36) U/L ALT (4-34) U/L Alkaline Phosphatase (38-126) U/L Ammonia (<30) umol/L Troponin I (0.000-0.034) ng/mL Total Protein (6.3-8.2) g/dL Albumin (3.5-5.0) g/dL TSH (0.465-4.680) mIU/L Urine Color Dark Brown Urine Appearance Clear (Clear) Urine pH 6.0 (5.0-8.0) Ur Specific [place] 1.026 (1.001-1.035) Urine Protein Trace H (Negative) Urine Glucose (UA) Negative (Negative) Urine Ketones 2+ H (Negative) Urine Blood Negative (Negative) Urine Nitrite Negative (Negative) Urine Bilirubin 1+ H (Negative) Urine Urobilinogen 3.0 (<2.0) mg/dL Ur Leukocyte Esterase Negative (Negative) Salicylates mg/dL Urine Opiates Screen Not Detected (NotDetected) Ur Oxycodone Screen Not Detected (NotDetected) Urine Methadone Screen Not Detected (NotDetected) Acetaminophen ug/mL Ur Barbiturates Screen Not Detected (NotDetected) U Tricyclic Antidepress Not Detected (NotDetected) Ur Phencyclidine Scrn Not Detected (NotDetected) Ur Amphetamines Screen Not Detected (NotDetected) U Methamphetamines Scrn Not Detected (NotDetected) U Benzodiazepines Scrn Not Detected (NotDetected) Urine Cocaine Screen Not Detected (NotDetected) U Marijuana (THC) Screen Not Detected (NotDetected) Serum Alcohol mg/dL 02/17/25 02/17/25 02/17/25 Range/Units 17:39 17:39 17:39 WBC 3.92 L (4.50-10.00) 10*3/uL RBC 6.20 H (4.10-5.20) 10*6/uL Hgb 17.5 H (12.0-15.0) g/dL Hct 49.9 H (37.2-46.3) % MCV 80.5 (80.0-97.0) fL MCH 28.2 (27.0-32.0) pg MCHC 35.1 (32.0-37.0) g/dL Plt Count 218 (140-440) 10*3/uL MPV 9.8 (9.5-12.2) fL Immature Gran % (Auto) 0.8 % Neutrophils % (Manual) 56 % Band Neuts % (Manual) 2 % Lymphocytes % (Manual) 29 % Monocytes % (Manual) 13 % Immature Gran # 0.03 (0.00-0.04) 10*3/uL Neutrophils # (Manual) 2.27 (1.3-7.7) k/uL Lymphocytes # (Manual) 1.14 (1.0-4.8) k/uL Monocytes # (Manual) 0.51 (0-1.0) k/uL Nucleated RBCs 0 (0-0) /100 WBC Manual Slide Review Performed Large Platelets Present PT 14.7 H (10.0-12.5) sec INR 1.4 H (<1.2) APTT 23.9 (22.0-30.0) sec Sodium (137-145) mmol/L Potassium (3.5-5.1) mmol/L Chloride (98-107) mmol/L Carbon Dioxide (22-30) mmol/L Anion Gap mmol/L BUN (7-17) mg/dL Creatinine (0.52-1.04) mg/dL Est GFR (CKD-EPI)AfAm (>60 ml/min/1.73 sqM) Est GFR (CKD-EPI)NonAf (>60 ml/min/1.73 sqM) Glucose (74-99) mg/dL POC Glucose (mg/dL) (70-110) mg/dL POC Glu Biomedical Engineer ID Calcium (8.4-10.2) mg/dL Total Bilirubin (0.2-1.3) mg/dL AST (14-36) U/L ALT (4-34) U/L Alkaline Phosphatase (38-126) U/L Ammonia (<30) umol/L Troponin I <0.012 (0.000-0.034) ng/mL Total Protein (6.3-8.2) g/dL Albumin (3.5-5.0) g/dL TSH (0.465-4.680) mIU/L Urine Color Urine Appearance (Clear) Urine pH (5.0-8.0) Ur Specific [place] (1.001-1.035) Urine Protein (Negative) Urine Glucose (UA) (Negative) Urine Ketones (Negative) Urine Blood (Negative) Urine Nitrite (Negative) Urine Bilirubin (Negative) Urine Urobilinogen (<2.0) mg/dL Ur Leukocyte Esterase (Negative) Salicylates mg/dL Urine Opiates Screen (NotDetected) Ur Oxycodone Screen (NotDetected) Urine Methadone Screen (NotDetected) Acetaminophen ug/mL Ur Barbiturates Screen (NotDetected) U Tricyclic Antidepress (NotDetected) Ur Phencyclidine Scrn (NotDetected) Ur Amphetamines Screen (NotDetected) U Methamphetamines Scrn (NotDetected) U Benzodiazepines Scrn (NotDetected) Urine Cocaine Screen (NotDetected) U Marijuana (THC) Screen (NotDetected) Serum Alcohol mg/dL 02/17/25 02/17/25 Range/Units 17:39 17:39 WBC (4.50-10.00) 10*3/uL RBC (4.10-5.20) 10*6/uL Hgb (12.0-15.0) g/dL Hct (37.2-46.3) % MCV (80.0-97.0) fL MCH (27.0-32.0) pg MCHC (32.0-37.0) g/dL Plt Count (140-440) 10*3/uL MPV (9.5-12.2) fL Immature Gran % (Auto) % Neutrophils % (Manual) % Band Neuts % (Manual) % Lymphocytes % (Manual) % Monocytes % (Manual) % Immature Gran # (0.00-0.04) 10*3/uL Neutrophils # (Manual) (1.3-7.7) k/uL Lymphocytes # (Manual) (1.0-4.8) k/uL Monocytes # (Manual) (0-1.0) k/uL Nucleated RBCs (0-0) /100 WBC Manual Slide Review Large Platelets PT (10.0-12.5) sec INR (<1.2) APTT (22.0-30.0) sec Sodium 136 L (137-145) mmol/L Potassium 3.1 L (3.5-5.1) mmol/L Chloride 97 L (98-107) mmol/L Carbon Dioxide 29 (22-30) mmol/L Anion Gap 10 mmol/L BUN 28 H (7-17) mg/dL Creatinine 0.55 (0.52-1.04) mg/dL Est GFR (CKD-EPI)AfAm >90 (>60 ml/min/1.73 sqM) Est GFR (CKD-EPI)NonAf >90 (>60 ml/min/1.73 sqM) Glucose 125 H (74-99) mg/dL POC Glucose (mg/dL) (70-110) mg/dL POC Glu Biomedical Engineer ID Calcium 9.3 (8.4-10.2) mg/dL Total Bilirubin 1.2 (0.2-1.3) mg/dL AST 36 (14-36) U/L ALT 45 H (4-34) U/L Alkaline Phosphatase 95 (38-126) U/L Ammonia <9 (<30) umol/L Troponin I (0.000-0.034) ng/mL Total Protein 6.3 (6.3-8.2) g/dL Albumin 3.4 L (3.5-5.0) g/dL TSH 2.040 (0.465-4.680) mIU/L Urine Color Urine Appearance (Clear) Urine pH (5.0-8.0) Ur Specific [place] (1.001-1.035) Urine Protein (Negative) Urine Glucose (UA) (Negative) Urine Ketones (Negative) Urine Blood (Negative) Urine Nitrite (Negative) Urine Bilirubin (Negative) Urine Urobilinogen (<2.0) mg/dL Ur Leukocyte Esterase (Negative) Salicylates <1.0 mg/dL Urine Opiates Screen (NotDetected) Ur Oxycodone Screen (NotDetected) Urine Methadone Screen (NotDetected) Acetaminophen <10.0 ug/mL Ur Barbiturates Screen (NotDetected) U Tricyclic Antidepress (NotDetected) Ur Phencyclidine Scrn (NotDetected) Ur Amphetamines Screen (NotDetected) U Methamphetamines Scrn (NotDetected) U Benzodiazepines Scrn (NotDetected) Urine Cocaine Screen (NotDetected) U Marijuana (THC) Screen (NotDetected) Serum Alcohol <10 mg/dL Disposition Clinical Impression: Altered mental status Disposition: ADMITTED IP TO THIS HOSP Condition: Fair Is patient prescribed a controlled substance at d/c from ED?: No Time of Disposition: 20:44 Decision to Admit Reason: Admit from EC Decision Date: 02/17/25 Decision Time: 20:44
[2025-02-17] MEDS ORDERED: NALOXONE 0.4 MG/ML 1 ML VIAL IV PRN (21:06)
[2025-02-17] MEDS ORDERED: ONDANSETRON 4 MG/2 ML VIAL IVP PRN (21:06)
[2025-02-17] MEDS: SODIUM CHLORIDE 0.9% 1,000 ML IV SCH (22:03)
[2025-02-18] MEDS ORDERED: DEXTROSE 50% SYRINGE 50 ML IVP PRN ×2 (03:39)
[2025-02-18] MEDS ORDERED: METOCLOPRAMIDE 5 MG TAB PO PRN (03:41)
--- NOTE | 2025-02-18 04:09 | P.HPIM ---
History of Present Illness H&P Date: 02/17/25 Chief Complaint: Altered mental status Patient is a 54 year old female with past medical history of type II icg-fvimrmv-bqlxatzmj diabetes mellitus presented to the ED with altered mental status. ED documentation reviewed that states patient's friend helps provide the history. Patient's friend states that she received a call that the patient was confused and weak. Her friend went over to the patient's house when she found out that the patient had a fall yesterday as well as the day before as well as the patient being so weak that she has not been able to get out of bed and is confused. Patient was recently admitted to the hospital here on January 24 2025 with dehydration, hyponatremia, starvation ketosis, gastroparesis resulting in constipation and drug-induced nausea and vomiting. She was discharged home on January 25 2025 with MiraLAX as well as metoclopramide. Patient was hospitalized again at [facility] until the second of this month for dehydration and gastroparesis. Patient's friend mentions that the patient has not taken any of her medications prescribed after discharge. Patient is alert and oriented to time place and person but upon asking why is she in the hospital she keeps mentioning about low blood sugar and low A1c. No family present at bedside at the time of this interview. Upon calling the her son Francis, he mentioned that the patient started acting delusional today all of a sudden. She was well up until then. She was imagining things that weren't there. Aparently the patient just called her son 10 minutes ago to warn him about weird people out there. Patient's son is not aware if patient is on any diabetes medication, but he does mention that the patient hasn't had a glucose monitor in a while. Patient's son mentions that she was on Wegovy for a month and experienced 15-20 pounds weight loss, but she became hypoglycemic and had to be admitted to [facility]. Patient has been of Wegovy since 2 weeks now. Denies fever, chills, shortness of breath, cough, chest pain, palpitations, abdominal pain, nausea, vomiting, hematuria, dysuria, hematochezia, melena, headache, slurred speech, numbness, tingling, dizziness, lightheadedness, blurred vision, double vision. ED documentation reviewed. In the ED patient was treated with 1 L bolus of normal saline, 0.9 normal saline at 150 mL/h, ondansetron. Vitals on admission T 97.9 F, WA 97 bpm, RR 18, BP 127/85, oxygen saturation 97% on room air Chest x-ray shows no acute pulmonary process Brain CT shows no acute intracranial process Labs on admission show WBC 3.92, hemoglobin 17.5, platelet count 218, PT 14.7, INR 1.4, sodium 136, potassium 3.1, chloride 97, BUN 28, creatinine 0.55, glucose 125, total bilirubin 1.2, calcium 9.3, ALT 45, albumin 3.4, TSH 2.040 UA shows trace protein, 2+ ketones, 1+ bilirubin Urine toxicology is negative, Review of systems: Pertinent positives and negatives as discussed in HPI, a complete review of systems was performed and all other systems are negative. Physical examination: Vital signs reviewed General: nontoxic, no distress, appears at stated age Derm: warm, dry, intact Head: atraumatic, normocephalic, symmetric Eyes: EOMI, anicteric sclera Mouth: no lip lesion, mucus membranes moist Cardiovascular: S1 S2 reg, no murmur Lungs: CTA bilateral, no rhonchi, no rales, no accessory muscle use Abdominal: soft, non-tender to palpation Extremities: No cyanosis, clubbing, or pedal edema. Neuro: Alert and oriented x3, Gross neurological examination did not reveal any focal deficits. Assessment/Plan: Patient is a 54 year old female with past medical history of type II ygi-tcxikwi-iqgaqeqpg diabetes mellitus presented to the ED with altered mental status. Active: #. Acute metabolic encephalopathy Brain CT shows no acute intracranial process Urine toxicology is negative TSH is 2.040 Obtain ESR, CRP, Vitamin B12, Folate, Vitamin B6, HIV, Hepatitis panel, RPR Obtain echocardiogram Appreciate neurology expertise #. Starvation ketosis UA shows trace protein, 2+ ketones, 1+ bilirubin Monitor for now #. Nausea and vomiting Continue ondansetron 4 mg IVP every 8 hours as needed #. Hypokalemia Potassium 3.1 admission Potassium replacement Monitor BMP Chronic: #. Qpc-hnhhrae-ljbjfjdjp diabetes mellitus #. Gastroparesis Insulin sliding scale, metoclopramide 5 mg 4 times daily as needed POC glucose checks 2 hourly Obtain records from [facility] F: 0.9 normal saline 150 mL/h E: Replete potassium N: Consistent carbohydrate diet DVT prophylaxis: Heparin 5000 units SQ every 8 hours GI prophylaxis: Pantoprazole 40 mg IVP daily The patient is admitted with an anticipated more than 2 midnight stay for evaluation of altered mental status CODE STATUS: Full code Discussed with: Patient Anticipated discharge place: Home Past Medical History Past Medical History: Diabetes Mellitus History of Any Multi-Drug Resistant Organisms: None Reported Past Surgical History: Section, Tonsillectomy Additional Past Surgical History / Comment(s): breast reduction, Past Psychological History: No Psychological Hx Reported Smoking Status: Former smoker Past Alcohol Use History: None Reported Past Drug Use History: None Reported Medications and Allergies Home Medications Medication Instructions Recorded Confirmed Type Estriol 2 pump TOPICAL DAILY 01/24/25 02/17/25 History 80%/Jmiouaqld-Yuulaapjzcpo-Lscpspezcxma 1.25-30-0.5mg/Gm Famotidine/Ca Carb/Mag Hydrox 1 tab PO BID 02/17/25 02/17/25 History [Pepcid Complete Tablet Chew] Magnesium Oxide [Mag-Ox] 400 mg PO DAILY 02/17/25 02/17/25 History Metoclopramide HCl [Reglan] 5 mg PO QID 02/17/25 02/17/25 History Omeprazole 40 mg PO DAILY 02/17/25 02/17/25 History Ondansetron Odt [Zofran Odt] 4 mg PO Q8HR PRN 02/17/25 02/17/25 History Potassium Chloride ER [K-Dur 20] 20 meq PO DAILY 02/17/25 02/17/25 History Vitamin D+Vitamin K (Unknown Dose) 1 tab PO DAILY 02/17/25 02/17/25 History polyethylene glycoL 3350 [Miralax] 17 gm PO DAILY PRN 02/17/25 02/17/25 History Allergies Allergy/AdvReac Type Severity Reaction Status Date / Time Penicillins Allergy Rash/Hives Verified 02/17/25 20:49 Physical Exam Vitals: Vital Signs Temp Pulse Resp BP Pulse Ox 02/17/25 21:00 92 20 124/85 96 02/17/25 19:30 89 18 128/89 96 02/17/25 18:37 98 18 124/94 97 02/17/25 15:18 97.9 F 97 18 127/85 97 Intake and Output 02/17/25 02/17/25 02/17/25 06:59 14:59 22:59 Other: Weight 75.296 kg Results CBC & Chem 7: 02/17/25 17:39 02/17/25 17:39 Labs: Abnormal Lab Results - Last 24 Hours (Table) 02/17/25 02/17/25 02/17/25 Range/Units 15:39 16:46 17:39 WBC 3.92 L (4.50-10.00) 10*3/uL RBC 6.20 H (4.10-5.20) 10*6/uL Hgb 17.5 H (12.0-15.0) g/dL Hct 49.9 H (37.2-46.3) % PT (10.0-12.5) sec INR (<1.2) Sodium (137-145) mmol/L Potassium (3.5-5.1) mmol/L Chloride (98-107) mmol/L BUN (7-17) mg/dL Glucose (74-99) mg/dL POC Glucose (mg/dL) 173 H (70-110) mg/dL ALT (4-34) U/L Albumin (3.5-5.0) g/dL Urine Protein Trace H (Negative) Urine Ketones 2+ H (Negative) Urine Bilirubin 1+ H (Negative) 02/17/25 02/17/25 Range/Units 17:39 17:39 WBC (4.50-10.00) 10*3/uL RBC (4.10-5.20) 10*6/uL Hgb (12.0-15.0) g/dL Hct (37.2-46.3) % PT 14.7 H (10.0-12.5) sec INR 1.4 H (<1.2) Sodium 136 L (137-145) mmol/L Potassium 3.1 L (3.5-5.1) mmol/L Chloride 97 L (98-107) mmol/L BUN 28 H (7-17) mg/dL Glucose 125 H (74-99) mg/dL POC Glucose (mg/dL) (70-110) mg/dL ALT 45 H (4-34) U/L Albumin 3.4 L (3.5-5.0) g/dL Urine Protein (Negative) Urine Ketones (Negative) Urine Bilirubin (Negative)
[2025-02-18 05:31] LABS: Glucose,Whole Blood 152 mg/dL (70-110)
[2025-02-18] MEDS: INSULIN LISPRO (HumaLOG) 100 UNIT/ML 10 mL VL SQ SCH (05:54)
[2025-02-18] MEDS: PANTOPRAZOLE 40 MG TABLET PO SCH (05:54)
[2025-02-18 06:16] LABS: Basophils # (A) 0.02 10*3/uL (0.00-0.10); Basophils % (A) 0.6 %; Eosinophils # (A) 0.04 10*3/uL (0.04-0.35); Eosinophils % (A) 1.1 %; HCT 45.6 % (37.2-46.3); HGB 15.5 g/dL (12.0-15.0); Lymphocytes # (A) 0.73 10*3/uL (0.90-5.00); Lymphocytes % (A) 20.4 %; MCH 27.8 pg (27.0-32.0); MCV 81.7 fL (80.0-97.0); Mean Platelet Volume 9.9 fL (9.5-12.2); Monocytes # (A) 0.51 10*3/uL (0.20-1.00); Monocytes % (A) 14.3 %; Neutrophils # (A) 2.23 10*3/uL (1.80-7.70); Neutrophils % (A) 62.5 %; Platelet Count 214 10*3/uL (140-440); RBC 5.58 10*6/uL (4.10-5.20); RDW 15.3 % (11.5-14.5); WBC 3.57 10*3/uL (4.50-10.00)
[2025-02-18 06:27] LABS: African American GFR (CKD) >90 (>60 ml/min/1.73 sqM); Anion Gap 16 mmol/L; Blood Urea Nitrogen 20 mg/dL (7-17); Calcium 8.6 mg/dL (8.4-10.2); Carbon Dioxide 20 mmol/L (22-30); Chloride 99 mmol/L (98-107); Glucose 129 mg/dL (74-99); Non-African American GFR(CKD) >90 (>60 ml/min/1.73 sqM); Sodium 135 mmol/L (137-145)
[2025-02-18] MEDS ORDERED: Potassium Replacement Protocol 1 EACH MISC MISCELLANE PRN (06:33)
[2025-02-18] MEDS: POTASSIUM CHLORIDE ER 20 MEQ TAB.ER PO STA (06:37)
[2025-02-18 07:27] LABS: Glucose,Whole Blood 127 mg/dL (70-110)
[2025-02-18] MEDS ORDERED: POTASSIUM CHLORIDE ER 20 MEQ TAB.ER PO SCH (08:00)
[2025-02-18] MEDS ORDERED: HEPARIN SODIUM,PORCINE 5,000 UNIT/ML 1 ML VIAL SQ SCH (08:00)
[2025-02-18] MEDS: HEPARIN SODIUM,PORCINE 5,000 UNIT/ML 1 ML VIAL SQ SCH (08:50)
[2025-02-18 09:41] LABS: Hepatitis A Ab, Total Nonreactive (Nonreactive); Hepatitis A Antibody IgM Nonreactive (Nonreactive); Hepatitis B Core IgM Nonreactive (Nonreactive); Hepatitis B Surface Antigen Nonreactive (Nonreactive); Hepatitis C IgG Antibody Nonreactive (Nonreactive)
[2025-02-18 09:55] LABS: Hepatitis B Surface AB- Quant 3.5 mIU/mL
[2025-02-18] MEDS: LACTATED RINGERS 1,000 ML IV SCH (11:45)
--- NOTE | 2025-02-18 11:51 | P.PN ---
Subjective Progress Note Date: 02/18/25 Patient is a 54 year old female with past medical history of type II elr-fxupvqo-rpjhjutpy diabetes mellitus presented to the ED with altered mental status. ED documentation reviewed that states patient's friend helps provide the history. Patient's friend states that she received a call that the patient was confused and weak. Her friend went over to the patient's house when she found out that the patient had a fall yesterday as well as the day before as well as the patient being so weak that she has not been able to get out of bed and is confused. Patient was recently admitted to the hospital here on January 24 2025 with dehydration, hyponatremia, starvation ketosis, gastroparesis resulting in constipation and drug-induced nausea and vomiting. She was discharged home on January 25 2025 with MiraLAX as well as metoclopramide. Patient was hospitalized again at [facility] until the second of this month for dehydration and gastroparesis. Patient's friend mentions that the patient has not taken any of her medications prescribed after discharge. Patient is alert and oriented to time place and person but upon asking why is she in the hospital she keeps mentioning about low blood sugar and low A1c. No family present at bedside at the time of this interview. Upon calling the her son Francis, he mentioned that the patient started acting delusional today all of a sudden. She was well up until then. She was imagining things that weren't there. Aparently the patient just called her son 10 minutes ago to warn him about weird people out there. Patient's son is not aware if patient is on any diabetes medication, but he does mention that the patient hasn't had a glucose monitor in a while. Patient's son mentions that she was on Wegovy for a month and experienced 15-20 pounds weight loss, but she became hypoglycemic and had to be admitted to [facility]. Patient has been of Wegovy since 2 weeks now. Denies fever, chills, shortness of breath, cough, chest pain, palpitations, abdominal pain, nausea, vomiting, hematuria, dysuria, hematochezia, melena, headache, slurred speech, numbness, tingling, dizziness, lightheadedness, blurred vision, double vision. ED documentation reviewed. In the ED patient was treated with 1 L bolus of normal saline, 0.9 normal saline at 150 mL/h, ondansetron. 02/18 - She is seen and examined at bedside this morning, now on the 6th floor. She had no acute events overnight, and has no acute complaints morning. She remains confused, and unable to speak clearly conversation. She is able to formulate sentences without issue, however her responses are not always appropriate to the question being asked and do not always make sense. She continually talks about her being hypoglycemic, despite reassurances that she is not. REVIEW OF SYSTEMS: Pertinent positives and negatives noted in HPI. Physical Exam: General: nontoxic, no distress, appears at stated age Derm: warm, dry, intact Head: atraumatic, normocephalic, symmetric Eyes: EOMI, anicteric sclera Mouth: no lip lesion, mucus membranes moist Cardiovascular: S1 S2 reg, no murmur, rubs, or gallops Lungs: CTA bilateral, no rales, no accessory muscle use Abdominal: soft, non-tender to palpataion, no appreciable organomegaly Extremities: no gross muscle atrophy, no edema, no contractures Neuro: Alert, Oriented, CNII-XII grossly intact, gait normal Psych: well appearing, appropriate affect Data Received Today: Labs: -WBCs 3.57, hemoglobin 15.5, hematocrit 45.6, platelet 214; sodium 135, potassium 3.0, bicarb 20, anion gap 16, BUN 20, creatinine 0.52, calcium 8.6, CRP 14.0 -Urine toxicology screening all negative; serum alcohol <10 Imagining: No new imaging today, Brain MRI and EEG ordered, currently pending Assessment and plan Patient is a 54 year old female with past medical history of type II pxz-kkwlyvf-jouxyflhl diabetes mellitus presented to the ED with altered mental status. #Sepsis, without known source #Leukopenia #Lactic Acidosis #High anion gap metabolic acidosis, likely secondary to above #Bandemia -Leukopenic - 3.57 today, tachycardic - 106 this morning, Lactic Acid - 3.3 this AM -Receiving 2L LR bolus -Blood culture ordered, currently pending -Cepheid 4-Plex ordered, currently pending -Awaiting further work up to initiate appropriate antibiotics #Acute metabolic encephalopathy -Brain CT shows no acute intracranial process -Urine toxicology is negative -TSH is 2.040, Folate <2.0, CRP 14 -Obtain ESR, Vitamin B12, Vitamin B6, HIV, Hepatitis panel, RPR -Discussed with neurology- Brain MRI w/o contrast and EEG ordered, currently pending #Starvation ketosis -UA shows trace protein, 2+ ketones, 1+ bilirubin -Monitor for now #Nausea and vomiting -Continue ondansetron 4 mg IVP every 8 hours as needed #Hypokalemia -Potassium 3.0 this morning -Potassium replacement this morning with 40 mEq potassium chloride; recheck in a few hours and determine if additional needs to be given -Monitor BMP Chronic: #Ndi-hbsyilg-rmybscmns diabetes mellitus #Gastroparesis -Insulin sliding scale, metoclopramide 5 mg 4 times daily as needed -POC glucose checks 2 hourly -Obtain records from [facility] DVT ppx: Heparin 5000 units SQ every 12 hours Code status: Full code F: Receiving 2 L LR bolus E: Replete as needed N: Consistent carbohydrate diet A: Ambulatory Anticipated discharge place: Pending clinical course Anticipated discharge time: Pending clinical course Dictation was produced using [employer] dictation software. please excuse any grammatical, word or spelling errors. Rhett Freedman MD PGY-1 IM I have seen and evaluated the patient today. Discussed with the resident and agree with the residents finding and plan as documented in the resident's note. Changes highlighted in blue font. Severely ill, prognosis guarded Switch status from observation to inpatient Objective - Vital Signs Vital signs: Vital Signs Temp 97.7 F 02/18/25 07:00 Pulse 106 H 02/18/25 07:00 Resp 15 02/18/25 07:00 BP 134/87 02/18/25 07:00 Pulse Ox 97 02/18/25 07:00 FiO2 Intake & Output 02/17/25 02/18/25 02/18/25 18:59 06:59 18:59 Weight 75.296 kg 73.8 kg Other: # Voids 2 # Bowel Movements 1 - Labs CBC & Chem 7: 02/18/25 05:33 02/18/25 12:05 Labs: Abnormal Lab Results - Last 24 Hours (Table) 02/17/25 02/17/25 02/17/25 Range/Units 15:39 16:46 17:39 WBC 3.92 L (4.50-10.00) 10*3/uL RBC 6.20 H (4.10-5.20) 10*6/uL Hgb 17.5 H (12.0-15.0) g/dL Hct 49.9 H (37.2-46.3) % Lymphocytes # (0.90-5.00) 10*3/uL PT (10.0-12.5) sec INR (<1.2) Sodium (137-145) mmol/L Potassium (3.5-5.1) mmol/L Chloride (98-107) mmol/L Carbon Dioxide (22-30) mmol/L BUN (7-17) mg/dL Glucose (74-99) mg/dL POC Glucose (mg/dL) 173 H (70-110) mg/dL ALT (4-34) U/L C-Reactive Protein (<1.0) mg/dL Albumin (3.5-5.0) g/dL Urine Protein Trace H (Negative) Urine Ketones 2+ H (Negative) Urine Bilirubin 1+ H (Negative) 02/17/25 02/17/25 02/18/25 Range/Units 17:39 17:39 05:28 WBC (4.50-10.00) 10*3/uL RBC (4.10-5.20) 10*6/uL Hgb (12.0-15.0) g/dL Hct (37.2-46.3) % Lymphocytes # (0.90-5.00) 10*3/uL PT 14.7 H (10.0-12.5) sec INR 1.4 H (<1.2) Sodium 136 L (137-145) mmol/L Potassium 3.1 L (3.5-5.1) mmol/L Chloride 97 L (98-107) mmol/L Carbon Dioxide (22-30) mmol/L BUN 28 H (7-17) mg/dL Glucose 125 H (74-99) mg/dL POC Glucose (mg/dL) 152 H (70-110) mg/dL ALT 45 H (4-34) U/L C-Reactive Protein (<1.0) mg/dL Albumin 3.4 L (3.5-5.0) g/dL Urine Protein (Negative) Urine Ketones (Negative) Urine Bilirubin (Negative) 02/18/25 02/18/25 02/18/25 Range/Units 05:33 05:33 05:33 WBC 3.57 L (4.50-10.00) 10*3/uL RBC 5.58 H (4.10-5.20) 10*6/uL Hgb 15.5 H (12.0-15.0) g/dL Hct (37.2-46.3) % Lymphocytes # 0.73 L (0.90-5.00) 10*3/uL PT (10.0-12.5) sec INR (<1.2) Sodium 135 L (137-145) mmol/L Potassium 3.0 L (3.5-5.1) mmol/L Chloride (98-107) mmol/L Carbon Dioxide 20 L (22-30) mmol/L BUN 20 H (7-17) mg/dL Glucose 129 H (74-99) mg/dL POC Glucose (mg/dL) (70-110) mg/dL ALT (4-34) U/L C-Reactive Protein 14.0 H (<1.0) mg/dL Albumin (3.5-5.0) g/dL Urine Protein (Negative) Urine Ketones (Negative) Urine Bilirubin (Negative) 02/18/25 Range/Units 07:26 WBC (4.50-10.00) 10*3/uL RBC (4.10-5.20) 10*6/uL Hgb (12.0-15.0) g/dL Hct (37.2-46.3) % Lymphocytes # (0.90-5.00) 10*3/uL PT (10.0-12.5) sec INR (<1.2) Sodium (137-145) mmol/L Potassium (3.5-5.1) mmol/L Chloride (98-107) mmol/L Carbon Dioxide (22-30) mmol/L BUN (7-17) mg/dL Glucose (74-99) mg/dL POC Glucose (mg/dL) 127 H (70-110) mg/dL ALT (4-34) U/L C-Reactive Protein (<1.0) mg/dL Albumin (3.5-5.0) g/dL Urine Protein (Negative) Urine Ketones (Negative) Urine Bilirubin (Negative)
[2025-02-18 11:53] LABS: Glucose,Whole Blood 211 mg/dL (70-110)
[2025-02-18 12:51] LABS: Potassium 3.1 mmol/L (3.5-5.1)
[2025-02-18] MEDS: POTASSIUM CHLORIDE ER 20 MEQ TAB.ER PO SCH (14:15)
[2025-02-18] MEDS: SODIUM CHLORIDE 0.9% 1,000 ML IV SCH (16:10)
--- NOTE | 2025-02-18 16:26 | P.CNNES ---
History of Present Illness Consult date: 02/18/25 Reason for Consult: Altered mental status History of Present Illness: The patient is a 54-year-old female who is seen in neurologic consultation on February 18, 2025, in collaboration with Muriel Dubon, via teleneurology. History is obtained from review of the chart, as well as from 2 friends who are present at the bedside at the time of the evaluation. They report that the patient was just recently admitted to [facility] for similar symptoms. She apparently had been taking Mounjaro for weight loss and diabetes. This medication reportedly caused quite significant nausea, vomiting, bloating, abdominal pain and constipation. At the time of her recent admission, patient was found to be dehydrated with starvation ketosis. The patient was given MiraLAX and was discharged home the next day after reporting that she was feelin g much much better. The patient was also given fluids. She was advised to not take Mounjaro any further, until follow-up with primary care physician. According to the friends, the patient has not been taking the medication since January 11. When asked why she is in the hospital, the patient states "it is a little crazy, my blood sugar has been up and down". The patient's friend reports that she went over to her friend's house and found her in bed, asleep. She has subsequently continued to be quite lethargic and confused. They report that there is at times, "no connection with reality". There is reportedly been nonsensical speech as well as slurring of speech. The patient does reportedly recognize her friends. In the emergency department, CT scan of the brain was performed. There was no reported evidence of acute hemorrhage or infarct. Laboratory evaluation revealed a slightly low sodium of 135 and potassium of 3.0. CRP is elevated at 14. White blood cell count is normal however there are noted to be positive bands. Their primary team is concerned about infection. Lactic acid level this morning was elevated at 3.3 with further elevation this afternoon of 3.8 Review of Systems Constitutional: Reports anorexia, Reports lethargy, Reports poor appetite, Reports weakness, Reports weight loss Neurological: Reports change in mentation, Reports change in speech, Reports confusion, Reports weakness Past Medical History Past Medical History: Diabetes Mellitus History of Any Multi-Drug Resistant Organisms: None Reported Past Surgical History: Section, Tonsillectomy Additional Past Surgical History / Comment(s): breast reduction, Past Anesthesia/Blood Transfusion Reactions: Unable to Obtain Past Psychological History: No Psychological Hx Reported Smoking Status: Former smoker Past Alcohol Use History: None Reported Past Drug Use History: None Reported Medications and Allergies Home Medications Medication Instructions Recorded Confirmed Type Estriol 2 pump TOPICAL DAILY 01/24/25 02/17/25 History 80%/Lbrwuvehq-Beosxxvisomn-Tmctiygmcuaq 1.25-30-0.5mg/Gm Famotidine/Ca Carb/Mag Hydrox 1 tab PO BID 02/17/25 02/17/25 History [Pepcid Complete Tablet Chew] Magnesium Oxide [Mag-Ox] 400 mg PO DAILY 02/17/25 02/17/25 History Metoclopramide HCl [Reglan] 5 mg PO QID 02/17/25 02/17/25 History Omeprazole 40 mg PO DAILY 02/17/25 02/17/25 History Ondansetron Odt [Zofran Odt] 4 mg PO Q8HR PRN 02/17/25 02/17/25 History Potassium Chloride ER [K-Dur 20] 20 meq PO DAILY 02/17/25 02/17/25 History Vitamin D+Vitamin K (Unknown Dose) 1 tab PO DAILY 02/17/25 02/17/25 History polyethylene glycoL 3350 [Miralax] 17 gm PO DAILY PRN 02/17/25 02/17/25 History Allergies Allergy/AdvReac Type Severity Reaction Status Date / Time Penicillins Allergy Rash/Hives Verified 02/17/25 20:49 tree nut [Nut] Allergy Unknown Verified 02/18/25 13:43 Physical Examination - Vital Signs Vital Signs: Vital Signs Temp Pulse Pulse Resp BP BP Pulse Ox 02/18/25 07:00 97.7 F 106 H 15 134/87 97 02/18/25 00:42 97.5 F L 92 16 145/90 98 02/17/25 23:20 97.3 F L 111 H 18 121/84 97 02/17/25 23:00 98.3 F 93 20 121/92 97 02/17/25 21:00 92 20 124/85 96 02/17/25 19:30 89 18 128/89 96 02/17/25 18:37 98 18 124/94 97 02/17/25 15:18 97.9 F 97 18 127/85 97 Intake and Output 02/17/25 02/18/25 02/18/25 22:59 06:59 14:59 Other: # Voids 2 # Bowel Movements 1 Weight 75.296 kg 73.8 kg General: The patient is reclining in the bed, well-nourished, well-developed and in no acute distress. HEENT: Head is atraumatic, normocephalic. Fundus not visualized. There is no scleral icterus. Mucous membranes are moist. Neck: Supple without carotid bruits Heart: Regular rate and rhythm Lungs: Essentially clear to auscultation Extremities: Without edema Neurological examination Mental status: The patient is awake and alert. The patient is able to state her full name, date of , "hospital" and current month. When asked where she is she states "[facility]". Speech is clear. There is no dysarthria or aphasia. There is no a anomia. The patient has intermittent difficulty following instructions Cranial nerves: Pupils are equal, and reactive at 3 mm. Visual cardoza are full to confrontation. Extraocular movements are intact. There is no nystagmus. Facial sensation is intact. There is no facial asymmetry. Hearing is diminished. Uvula and palate are midline. Shoulder shrug is symmetric. Tongue protrudes midline without bite. Motor: Strength is 5/5 throughout. Coordination: Qefffx-ze-hoak, rapid alternating movements and osms-jw-tydq testing are intact. Sensation: Intact to light touch throughout. There is no extinction with double simultaneous stimulation. Deep tendon reflexes: 3+/4+ at the bilateral biceps, triceps, brachioradialis reflexes. Patellar reflexes 2+/4+. Plantar responses are flexor bilaterally. Gait: Not assessed Results CT scan of the brain images have been personally reviewed. I agree with the radiology report - Laboratory Findings CBC and BMP: 02/18/25 05:33 02/18/25 12:05 Abnormal Lab Findings: Abnormal Labs 02/17/25 02/17/25 02/17/25 15:39 16:46 17:39 WBC 3.92 L RBC 6.20 H Hgb 17.5 H Hct 49.9 H Lymphocytes # PT INR Sodium Potassium Chloride Carbon Dioxide BUN Glucose POC Glucose (mg/dL) 173 H ALT C-Reactive Protein Albumin Urine Protein Trace H Urine Ketones 2+ H Urine Bilirubin 1+ H 02/17/25 02/17/25 02/18/25 17:39 17:39 05:28 WBC RBC Hgb Hct Lymphocytes # PT 14.7 H INR 1.4 H Sodium 136 L Potassium 3.1 L Chloride 97 L Carbon Dioxide BUN 28 H Glucose 125 H POC Glucose (mg/dL) 152 H ALT 45 H C-Reactive Protein Albumin 3.4 L Urine Protein Urine Ketones Urine Bilirubin 02/18/25 02/18/25 02/18/25 05:33 05:33 05:33 WBC 3.57 L RBC 5.58 H Hgb 15.5 H Hct Lymphocytes # 0.73 L PT INR Sodium 135 L Potassium 3.0 L Chloride Carbon Dioxide 20 L BUN 20 H Glucose 129 H POC Glucose (mg/dL) ALT C-Reactive Protein 14.0 H Albumin Urine Protein Urine Ketones Urine Bilirubin 02/18/25 07:26 WBC RBC Hgb Hct Lymphocytes # PT INR Sodium Potassium Chloride Carbon Dioxide BUN Glucose POC Glucose (mg/dL) 127 H ALT C-Reactive Protein Albumin Urine Protein Urine Ketones Urine Bilirubin Assessment and Plan Assessment: 1. The patient is a 54-year-old female who presents to the emergency department with altered mental status. There is reported nonsensical speech with some slurring of speech. On examination, the patient has some difficulty answering questions that are asked and following some instructions. Differential diagnosis: Cerebral infarct with receptive aphasia versus seizure and postictal state versus altered mental status secondary to dehydration and/or infection 2. Lactic acidosis 3. Elevated CRP which is suggestive of inflammation 4. History of diabetes mellitus 5. History of medication induced mental status changes Plan: 1. MRI of the brain has been ordered to rule out stroke 2. EEG has been ordered to further evaluate for seizure 3. B12 and ammonia levels have been ordered 4. Agree with laboratory testing ordered by primary team 5. Continue supportive care Thank you for allowing us to participate in the care of this patient Time with Patient: Greater than 30 (60 minutes were spent caring for this patient today including, obtaining a history, examining the patient, reviewing imaging, chart documentation, labs, placing orders and creating this note)
[2025-02-18] MEDS: FOLIC ACID 1 MG TAB PO SCH (17:00)
[2025-02-18 17:08] LABS: Glucose,Whole Blood 98 mg/dL (70-110)
[2025-02-18] MEDS: THIAMINE 500 MG in SODIUM CHLORIDE 0.9% 50 ML IVPB SCH (17:12)
[2025-02-18 19:00] LABS: Influenza A Not Detected (Not Detectd); Influenza B Not Detected (Not Detectd); RSV Not Detected (Not Detectd)
[2025-02-18 19:44] LABS: Glucose,Whole Blood 117 mg/dL (70-110)
[2025-02-18] MEDS: ATORVASTATIN 40 MG TAB PO SCH (21:59)
[2025-02-18] MEDS: VANCOMYCIN 125 MG CAPSULE PO SCH (21:59)
[2025-02-19 06:02] LABS: Glucose,Whole Blood 80 mg/dL (70-110)
[2025-02-19 06:11] LABS: Basophils # (A) 0.03 10*3/uL (0.00-0.10); Basophils % (A) 0.9 %; Eosinophils # (A) 0.17 10*3/uL (0.04-0.35); Eosinophils % (A) 5.1 %; HCT 41.3 % (37.2-46.3); HGB 14.1 g/dL (12.0-15.0); Lymphocytes # (A) 1.48 10*3/uL (0.90-5.00); Lymphocytes % (A) 44.6 %; MCH 28.2 pg (27.0-32.0); MCHC 34.1 g/dL (32.0-37.0); MCV 82.6 fL (80.0-97.0); Mean Platelet Volume 10.6 fL (9.5-12.2); Monocytes # (A) 0.56 10*3/uL (0.20-1.00); Monocytes % (A) 16.9 %; Neutrophils # (A) 1.05 10*3/uL (1.80-7.70); Neutrophils % (A) 31.6 %; Platelet Count 189 10*3/uL (140-440); RDW 15.4 % (11.5-14.5); WBC 3.32 10*3/uL (4.50-10.00)
[2025-02-19 06:26] LABS: African American GFR (CKD) >90 (>60 ml/min/1.73 sqM); Anion Gap 4 mmol/L; Blood Urea Nitrogen 9 mg/dL (7-17); Carbon Dioxide 27 mmol/L (22-30); Chloride 105 mmol/L (98-107); Glucose 87 mg/dL (74-99); Magnesium 1.7 mg/dL (1.6-2.3); Non-African American GFR(CKD) >90 (>60 ml/min/1.73 sqM); Potassium 4.6 mmol/L (3.5-5.1); Sodium 136 mmol/L (137-145)
[2025-02-19] MEDS: ASPIRIN 81 MG PO SCH (09:35)
--- NOTE | 2025-02-19 11:29 | P.PN ---
Subjective Progress Note Date: 02/19/25 Subjective: Patient seen and examined at bedside. No acute events overnight. Mentation improved. Still having diarrhea. Had total of 3 bowel movements since midnight. Pertinent positives and negatives as discussed above, a complete review of systems was performed and all other systems are negative. Vitals Signs Reviewed. General: Nontoxic, no distress, appears at stated age Derm: Warm, dry Head: Atraumatic, normocephalic, symmetric Eyes: EOMI, no lid lag, anicteric sclera Mouth: No lip lesion, mucus membranes moist Cardiovascular: S1S2 reg, no murmur Lungs: CTA bilateral, no rhonchi, no rales, no accessory muscle use Abdominal: Soft, nontender to palpation, no guarding, no appreciable organomegaly Ext: No gross muscle atrophy, no edema, no contractures Neuro: CN II-XI grossly intact, no focal neuro deficits Psych: Alert, oriented, appropriate affect Data Reviewed Today: Pertinent Labs: WBC 3.32, platelet 189, hemoglobin 14.1, sodium 136, bicarb 27, creatinine 0.54, lactate 2, stool lactoferrin positive, C. difficile positive Imaging: No new imaging Assessment and Plan: Active: Sepsis secondary to C. difficile colitis Acute metabolic encephalopathy secondary to above, resolved Severe folic acid deficiency - On oral vancomycin 125 4 times daily - Seizure precautions - Neurology following MRI and EEG pending - Started on folic acid 1 mg daily - Considering patient was displaying signs of confabulation and possible Warnicke encephalopathy in the context of poor oral intake, patient was empirically started on thiamine IV 500 3 times daily, for 2 days, will switch to 250 once daily for additional 5 days - Thiamine levels pending - Continue on normal saline at 100 cc an hour Type 2 diabetes Sliding scale insulin, monitor for hypoglycemia Resolved: Lactic acidosis Metabolic acidosis Bandemia Starvation ketosis Hypokalemia Chronic: Gastroparesis Gastritis DVT ppx: Subcu heparin Code status: Full code Anticipated discharge place: Pending clinical course Anticipated discharge time: Pending clinical course Objective - Vital Signs Vital signs: Vital Signs Temp 98.1 F 02/19/25 08:00 Pulse 99 02/19/25 08:00 Resp 14 02/19/25 08:00 BP 138/87 02/19/25 08:00 Pulse Ox 97 02/19/25 08:00 FiO2 Intake & Output 02/18/25 02/19/2502/19/25 18:59 06:59 18:59 Intake Total 240 Balance 240 Intake: Oral 240 Other: # Voids 3 # Bowel Movements 3 - Labs CBC & Chem 7: 02/19/25 05:49 02/19/25 05:49 Labs: Abnormal Lab Results - Last 24 Hours (Table) 02/18/25 02/18/25 02/18/25 Range/Units 11:52 12:05 15:05 WBC (4.50-10.00) 10*3/uL RDW (11.5-14.5) % Neutrophils # (1.80-7.70) 10*3/uL Sodium (137-145) mmol/L Potassium 3.1 L (3.5-5.1) mmol/L POC Glucose (mg/dL) 211 H (70-110) mg/dL Plasma Lactic Acid Eduardo 3.8 H* (0.7-2.0) mmol/L Stool Lactoferrin (Negative) C. difficile (EIA) Intrp (Negative) 02/18/25 02/18/25 02/18/25 Range/Units 19:04 19:04 19:42 WBC (4.50-10.00) 10*3/uL RDW (11.5-14.5) % Neutrophils # (1.80-7.70) 10*3/uL Sodium (137-145) mmol/L Potassium (3.5-5.1) mmol/L POC Glucose (mg/dL) 117 H (70-110) mg/dL Plasma Lactic Acid Eduardo (0.7-2.0) mmol/L Stool Lactoferrin Positive A (Negative) C. difficile (EIA) Intrp Positive A (Negative) 02/19/25 02/19/25 Range/Units 05:49 05:49 WBC 3.32 L (4.50-10.00) 10*3/uL RDW 15.4 H (11.5-14.5) % Neutrophils # 1.05 L (1.80-7.70) 10*3/uL Sodium 136 L (137-145) mmol/L Potassium (3.5-5.1) mmol/L POC Glucose (mg/dL) (70-110) mg/dL Plasma Lactic Acid Eduardo (0.7-2.0) mmol/L Stool Lactoferrin (Negative) C. difficile (EIA) Intrp (Negative)
[2025-02-19 12:21] LABS: Glucose,Whole Blood 101 mg/dL (70-110)
--- NOTE | 2025-02-19 14:56 | P.PN ---
Subjective Progress Note Date: 02/19/25 The patient is a 54-year-old female who is seen in neurologic follow-up on February 19, 2025, in collaboration with Muriel Dubon, via teleneurology. The patient reports that she is feeling somewhat better today. She has been able to eat some food. Her appetite is slightly improved. The patient's son is present at the bedside at the time of the evaluation. Patient does recall being seen by the neurology team, yesterday. In review of the chart, it is noted that the patient's stool is positive for C. difficile. She also has a positive lactoferrin level and a markedly low folic acid level Objective - Vital Signs Vital signs: Vital Signs Temp 98.1 F 02/19/25 00:48 Pulse 96 02/19/25 00:48 Resp 16 02/19/25 00:48 BP 120/81 02/19/25 00:48 Pulse Ox 97 02/19/25 00:48 FiO2 Intake & Output 02/18/25 02/19/25 02/19/25 18:59 06:59 18:59 Intake Total 240 Balance 240 Intake: Oral 240 Other: # Voids 3 # Bowel Movements 3 - Exam General: The patient is reclining in the bed, well-nourished, well-developed and in no acute distress. HEENT: Head is atraumatic, normocephalic. Fundus not visualized. There is no scleral icterus. Mucous membranes are moist. Extremities: Without edema Neurological examination Mental status: The patient is awake and alert. The patient is able to state her full name, date of , current year and month. Speech is clear. There is no dysarthria or aphasia. There is no a anomia. Cranial nerves: Pupils are equal, and reactive at 3 mm. Visual cardoza are full to confrontation. Extraocular movements are intact. There is no nystagmus. Facial sensation is intact. There is no facial asymmetry. Hearing is diminished. Uvula and palate are midline. Shoulder shrug is symmetric. Tongue protrudes midline without bite. - Labs CBC & Chem 7: 02/19/25 05:49 02/19/25 05:49 Labs: Abnormal Lab Results - Last 24 Hours (Table) 02/18/25 02/18/25 02/18/25 Range/Units 10:51 11:52 12:05 WBC (4.50-10.00) 10*3/uL RDW (11.5-14.5) % Neutrophils # (1.80-7.70) 10*3/uL Sodium (137-145) mmol/L Potassium 3.1 L (3.5-5.1) mmol/L POC Glucose (mg/dL) 211 H (70-110) mg/dL Plasma Lactic Acid Eduardo 3.3 H* (0.7-2.0) mmol/L Stool Lactoferrin (Negative) C. difficile (EIA) Intrp (Negative) 02/18/25 02/18/25 02/18/25 Range/Units 15:05 19:04 19:04 WBC (4.50-10.00) 10*3/uL RDW (11.5-14.5) % Neutrophils # (1.80-7.70) 10*3/uL Sodium (137-145) mmol/L Potassium (3.5-5.1) mmol/L POC Glucose (mg/dL) (70-110) mg/dL Plasma Lactic Acid Eduardo 3.8 H* (0.7-2.0) mmol/L Stool Lactoferrin Positive A (Negative) C. difficile (EIA) Intrp Positive A (Negative) 02/18/25 02/19/25 02/19/25 Range/Units 19:42 05:49 05:49 WBC 3.32 L (4.50-10.00) 10*3/uL RDW 15.4 H (11.5-14.5) % Neutrophils # 1.05 L (1.80-7.70) 10*3/uL Sodium 136 L (137-145) mmol/L Potassium (3.5-5.1) mmol/L POC Glucose (mg/dL) 117 H (70-110) mg/dL Plasma Lactic Acid Eduardo (0.7-2.0) mmol/L Stool Lactoferrin (Negative) C. difficile (EIA) Intrp (Negative) Assessment and Plan Assessment: 1. The patient is a 54-year-old female who presents to the emergency department with altered mental status. There is reported nonsensical speech with some slurring of speech. On examination, the patient has some difficulty answering q uestions that are asked and following some instructions. The symptoms have improved as of today. Laboratory evaluation is consistent with sepsis secondary to C. difficile. Infectious encephalitis is the likely diagnosis however seizure and postictal confusion should still be ruled out 2. Lactic acidosis 3. Elevated CRP which is suggestive of inflammation 4. History of diabetes mellitus 5. History of medication induced mental status changes Plan: 1. MRI of the brain has been canceled because stroke is much less likely in the setting of current laboratory workup 2. EEG has been ordered to further evaluate for seizure 3. B12 and ammonia levels have been ordered 4. Agree with laboratory testing ordered by primary team 5. Continue supportive care 6. Dr. Mace will assume neurologic coverage of this patient as of February 20, 2025 Time with Patient: Greater than 30 (35 minutes were spent caring for this patient today including, obtaining an interim history, examining the patient, reviewing chart documentation, labs, placing orders and creating this note)
[2025-02-19 17:22] LABS: Glucose,Whole Blood 88 mg/dL (70-110)
[2025-02-19 19:54] LABS: Glucose,Whole Blood 115 mg/dL (70-110)
[2025-02-20 05:19] LABS: Hepatitis BE Antibody NONREACTIVE (Nonreactive); Hepatitis BE Antigen NONREACTIVE (Nonreactive)
[2025-02-20 05:28] LABS: Glucose,Whole Blood 92 mg/dL (70-110)
[2025-02-20 08:54] LABS: HCT 36.3 % (37.2-46.3); HGB 11.9 g/dL (12.0-15.0); MCH 27.7 pg (27.0-32.0); MCHC 32.8 g/dL (32.0-37.0); MCV 84.4 FL (80.0-97.0); NRBC Per 100 WBC 0 X 10*3/uL (0.00-0.01); Platelet Count 162 X 10*3/uL (140-440); RDW 15.9 % (11.5-14.5); WBC 3.03 X 10*3/uL (4.50-10.00)
[2025-02-20 08:59] LABS: BUN/Creat Ratio 12.67 Ratio (12.00-20.00); Blood Urea Nitrogen 7.6 mg/dL (9.0-27.0); Calcium 8.4 mg/dL (8.7-10.3); Carbon Dioxide 26.6 mmol/L (21.6-31.8); Chloride 109 mmol/L (96-109); Glucose 110 mg/dL (70-110); Magnesium 1.6 mg/dL (1.5-2.4); Potassium 3.5 mmol/L (3.5-5.5); Sodium 143 mmol/L (135-145)
[2025-02-20] MEDS: THIAMINE 250 MG in SODIUM CHLORIDE 0.9% 50 ML IVPB SCH (09:25)
[2025-02-20 10:25] LABS: Hepatitis B Virus DNA Not detected (Not detected); Hepatitis B Virus DNA, Quant <10 IU/mL (<10); Log HBV IU/mL <1.00 (<1.00)
[2025-02-20 10:46] LABS: Basophils # (A) 0.03 X 10*3/uL (0.00-0.10); Eosinophils # (A) 0.12 X 10*3/uL (0.04-0.35); Lymphocytes # (A) 1.55 X 10*3/uL (0.90-5.00); Lymphocytes % (A) 51.2 %; Monocytes % (A) 16.5 %; Neutrophils % (A) 26.3 %; RBC Morphology Normal (Normal)
--- NOTE | 2025-02-20 11:17 | P.PN ---
Subjective Progress Note Date: 02/20/25 Patient is a 54 year old female with past medical history of type II sjr-ancsbsn-lrtbalicf diabetes mellitus presented to the ED with altered mental status. ED documentation reviewed that states patient's friend helps provide the history. Patient's friend states that she received a call that the patient was confused and weak. Her friend went over to the patient's house when she found out that the patient had a fall yesterday as well as the day before as well as the patient being so weak that she has not been able to get out of bed and is confused. Patient was recently admitted to the hospital here on January 24 2025 with dehydration, hyponatremia, starvation ketosis, gastroparesis resulting in constipation and drug-induced nausea and vomiting. She was discharged home on January 25 2025 with MiraLAX as well as metoclopramide. Patient was hospitalized again at [facility] until the second of this month for dehydration and gastroparesis. Patient's friend mentions that the patient has not taken any of her medications prescribed after discharge. Patient is alert and oriented to time place and person but upon asking why is she in the hospital she keeps mentioning about low blood sugar and low A1c. No family present at bedside at the time of this interview. Upon calling the her son Francis, he mentioned that the patient started acting delusional today all of a sudden. She was well up until then. She was imagining things that weren't there. Aparently the patient just called her son 10 minutes ago to warn him about weird people out there. Patient's son is not aware if patient is on any diabetes medication, but he does mention that the patient hasn't had a glucose monitor in a while. Patient's son mentions that she was on Wegovy for a month and experienced 15-20 pounds weight loss, but she became hypoglycemic and had to be admitted to [facility]. Patient has been of Wegovy since 2 weeks now. Denies fever, chills, shortness of breath, cough, chest pain, palpitations, abdominal pain, nausea, vomiting, hematuria, dysuria, hematochezia, melena, headache, slurred speech, numbness, tingling, dizziness, lightheadedness, blurred vision, double vision. ED documentation reviewed. In the ED patient was treated with 1 L bolus of normal saline, 0.9 normal saline at 150 mL/h, ondansetron. 02/18 - She is seen and examined at bedside this morning, now on the 6th floor. She had no acute events overnight, and has no acute complaints morning. She remains confused, and unable to speak clearly conversation. She is able to formulate sentences without issue, however her responses are not always appropriate to the question being asked and do not always make sense. She continually talks about her being hypoglycemic, despite reassurances that she is not. 02/19 - Patient seen and examined at bedside. No acute events overnight. Mentation improved. Still having diarrhea. Had total of 3 bowel movements since midnight. 02/20 - She is seen and examined at bedside this morning. No acute events overnight. mentation seemingly improved, however remains confused. Diarrhea continues, however endorses only 1 episode overnight. REVIEW OF SYSTEMS: Pertinent positives and negatives noted in HPI. Physical Exam: General: nontoxic, no distress, appears at stated age Derm: warm, dry, intact Head: atraumatic, normocephalic, symmetric Eyes: EOMI, anicteric sclera Mouth: no lip lesion, mucus membranes moist Cardiovascular: S1 S2 reg, no murmur, rubs, or gallops Lungs: CTA bilateral, no rales, no accessory muscle use Abdominal: soft, non-tender to palpataion, no appreciable organomegaly Extremities: no gross muscle atrophy, no edema, no contractures Neuro: Alert, Oriented, CNII-XII grossly intact, gait normal Psych: well appearing, appropriate affect Data Received Today: Labs: WBC 3.03, hemoglobin 11.9, Hirsch crit 36.3, platelet 160; sodium 143, potassium 3.5, BUN 7.6, creatinine 0.6, calcium 8.4, magnesium 1.6 Imagining: No new imaging today, EEG ordered, currently pending Assessment and plan Patient is a 54 year old female with past medical history of type II imq-qqbkxcc-ijkpdjtiv diabetes mellitus presented to the ED with altered mental status. #Sepsis, secondary to C. difficile colitis #Acute metabolic encephalopathy secondary to above, resolved #Severe folic acid deficiency -On oral vancomycin 125 mg 4 times daily -Seizure precautions -Neurology followin, EEG pending -Started on folic acid 1 mg daily, theragran multivitamin daily -Considering patient was displaying signs of confabulation possible Warnicke encephalopathy in the context of poor oral intake, patient was empirically start ed on thiamine IV 500 mg 3 times daily, completed total 2 days -Continue on thiamine IV 250 mg daily for an additional 5 days starting 02/20/25 -Thiamine levels pending -Continue with NS 100 cc/h #Type 2 diabetes mellitus -Sliding scale insulin -Monitor for hypoglycemia #Mild hypocalcemia, asymptomatic -Calcium 8.4 today -Continue to monitor BMP -Check Albumin for corrected calcium level Resolved: #Lactic acidosis #Metabolic acidosis #Anemia #Starvation ketosis #Hypokalemia Chronic: #Mxg-zddqwpy-leyvaecdu diabetes mellitus #Gastroparesis -Insulin sliding scale -POC glucose checks 2 hourly DVT ppx: Heparin 5000 units SQ every 12 hours GI PPx: Protonix 40 mg daily Code status: Full code F: NS 100 cc/h E: Replete as needed N: Consistent carbohydrate diet A: Ambulatory Anticipated discharge place: Pending clinical course Anticipated discharge time: Pending clinical course Dictation was produced using [employer] dictation software. please excuse any grammatical, word or spelling errors. Rhett Freedman MD PGY-1 IM I have seen and evaluated the patient today. Discussed with the resident and agree with the residents finding and plan as documented in the resident's note. Changes highlighted in blue font. Objective - Vital Signs Vital signs: Vital Signs Temp 97.8 F 02/20/25 02:00 Pulse 85 02/20/25 02:00 Resp 17 02/20/25 02:00 BP 117/80 02/20/25 02:00 Pulse Ox 96 02/20/25 02:00 FiO2 Intake & Output 02/19/25 02/20/25 02/20/25 18:59 06:59 18:59 Other: # Voids 2 # Bowel Movements 1 - Labs CBC & Chem 7: 02/20/25 05:16 02/20/25 05:16 Labs: Abnormal Lab Results - Last 24 Hours (Table) 02/19/25 02/19/25 Range/Units 05:49 19:53 Neutrophils # 1.05 L (1.80-7.70) 10*3/uL POC Glucose (mg/dL) 115 H (70-110) mg/dL Microbiology - Last 24 Hours (Table) 02/18/25 10:51 Blood Culture - Preliminary Blood
[2025-02-20 12:30] LABS: Glucose,Whole Blood 105 mg/dL (70-110)
[2025-02-20] MEDS: MULTIVITAMINS, THERA 1 EACH TAB PO SCH (12:56)
[2025-02-20 13:04] LABS: Hepatitis C Virus RNA, Qual Not detected (Not detected)
[2025-02-20 17:30] LABS: Glucose,Whole Blood 111 mg/dL (70-110)
[2025-02-20 20:37] LABS: Glucose,Whole Blood 138 mg/dL (70-110)
--- NOTE | 2025-02-20 21:23 | EEG ---
ELECTROENCEPHALOGRAM REPORT PREAMBLE: This is a 54-year-old female with altered mental status. CURRENT MEDICATIONS: 1. Aspirin. 2. Lipitor. 3. Folic acid. 4. Heparin. 5. Humalog. 6. Potassium. 7. Thiamine. EEG FINDINGS: This is a 21-channel digital EEG recorded with video component, utilizing 10/20 international system with referential and bipolar montages. The background consists of not very well developed and regulated, low amplitude 5 to 6 Hz theta activity seen in bihemispheric region. Some 60 Hz electrical interference was seen during this study. The background does not seem to be clearly reactive to eye opening or closing. Photic driving response was not clearly seen. No focal or generalized epileptiform activity was seen. Different stages of sleep were not seen. IMPRESSION: This is an abnormal EEG due to background slowing, suggestive of moderate encephalopathy. No focal, lateralized, or epileptiform activity was seen. MMOVIDIOL / IJN: [id number] /
[2025-02-21 01:05] LABS: HIV 2 AB Non-Reactive (Non-Reactive); HIV AB P24 Non-Reactive (Non-Reactive); HIV P24 AG Non-Reactive (Non-Reactive)
[2025-02-21 04:33] LABS: Basophils # (A) 0.02 10*3/uL (0.00-0.10); Basophils % (A) 0.6 %; Eosinophils % (A) 3.2 %; HCT 36.4 % (37.2-46.3); HGB 12.3 g/dL (12.0-15.0); Lymphocytes # (A) 1.33 10*3/uL (0.90-5.00); Lymphocytes % (A) 42.9 %; MCH 28.2 pg (27.0-32.0); MCHC 33.8 g/dL (32.0-37.0); MCV 83.5 fL (80.0-97.0); Mean Platelet Volume 11.4 fL (9.5-12.2); Monocytes # (A) 0.58 10*3/uL (0.20-1.00); Monocytes % (A) 18.7 %; Neutrophils # (A) 1.04 10*3/uL (1.80-7.70); Neutrophils % (A) 33.6 %; Platelet Count 157 10*3/uL (140-440); RBC 4.36 10*6/uL (4.10-5.20); RDW 15.7 % (11.5-14.5)
[2025-02-21 04:50] LABS: African American GFR (CKD) >90 (>60 ml/min/1.73 sqM); Anion Gap 4 mmol/L; Blood Urea Nitrogen 4 mg/dL (7-17); Calcium 8.3 mg/dL (8.4-10.2); Carbon Dioxide 25 mmol/L (22-30); Chloride 107 mmol/L (98-107); Glucose 97 mg/dL (74-99); Non-African American GFR(CKD) >90 (>60 ml/min/1.73 sqM); Sodium 136 mmol/L (137-145)
[2025-02-21 04:56] LABS: Magnesium 1.5 mg/dL (1.6-2.3); Potassium 3.7 mmol/L (3.5-5.1)
[2025-02-21 05:30] LABS: Glucose,Whole Blood 88 mg/dL (70-110)
--- NOTE | 2025-02-21 07:21 | P.PN ---
Subjective Progress Note Date: 02/20/25 Patient was initially seen by Dr. Latham. Please refer to her note for details. Patient is a 54-year-old female came with altered mental status, found to be positive for C. difficile sepsis. Patient's multiple family members were present by the bedside. They provided with some history. Patient has significant malnutrition. Patient was found to have mild diabetes with hemoglobin A1c 6.5 in the fall of 2023. She was started on Monjaro 2.5 mg injection and she received first dose on 11/09/2024. Her appetite started decreasing. She received another dose of same medication 2.5 mg in December 2024. And then on 01/11/2025, she received 5.0 mg dose of Mounjaro. Her appetite remarkably decreased. She was diagnosed with gastroparesis on 01/24/2025, constantly throwing up, could not keep even water up. And then she developed problems with her gallbladder. She started having problems with memory, hallucinating, putting things together, and forgetful. She would not remember the doctor's. She was confusing if she was in [place]. In the last 5-7 days, patient has developed some double vision. She couldn't focus on the face with blurred vision. They state that patient is "taking memory from long time ago and making sense what's going on now". Family is strongly considering Wernicke's encephalopathy with Korsakoff syndrome. No history of alcoholism. Objective - Vital Signs Vital signs: Vital Signs Temp 97.8 F 02/20/25 16:46 Pulse 68 02/20/25 16:46 Resp 16 02/20/25 16:46 BP 126/83 02/20/25 16:46 Pulse Ox 97 02/20/25 16:46 FiO2 Intake & Output 02/20/25 02/20/25 02/21/25 06:59 18:59 06:59 Intake Total 358 Balance 358 Intake: Oral 358 Other: Voiding Method Toilet # Voids 2 1 # Bowel Movements 1 4 - Exam Patient is alert and awake in no distress. Patient knows it is February 2025 and that she is in [facility] in [facility]. Speech and language functions appears normal. Cranial nerves significant for significant ophthalmic paresis. Patient has decreased horizontal gaze bilaterally, left more than right. Her vertical gaze is relatively preserved. Face is symmetric. Muscle strength is normal in the arms and legs. No ataxia for [id number]-ft-[id number] testing. Very mild possible ataxia in the lower limbs bilaterally. Sensory touch is equal. Tone and bulk of muscles normal. - Labs CBC & Chem 7: 02/21/25 04:06 02/21/25 04:06 Labs: Abnormal Lab Results - Last 24 Hours (Table) 02/19/25 02/20/25 02/20/25 Range/Units 19:53 05:16 05:16 WBC 3.03 L (4.50-10.00) X 10*3/uL Hgb 11.9 L (12.0-15.0) g/dL Hct 36.3 L (37.2-46.3) % RDW 15.9 H (11.5-14.5) % Neutrophils # 0.80 L (1.80-7.70) X 10*3/uL BUN 7.6 L (9.0-27.0) mg/dL POC Glucose (mg/dL) 115 H (70-110) mg/dL Calcium 8.4 L (8.7-10.3) mg/dL 02/20/25 Range/Units 17:28 WBC (4.50-10.00) X 10*3/uL Hgb (12.0-15.0) g/dL Hct (37.2-46.3) % RDW (11.5-14.5) % Neutrophils # (1.80-7.70) X 10*3/uL BUN (9.0-27.0) mg/dL POC Glucose (mg/dL) 111 H (70-110) mg/dL Calcium (8.7-10.3) mg/dL Microbiology - Last 24 Hours (Table) 02/18/25 10:51 Blood Culture - Preliminary Blood Assessment and Plan Assessment: 1. The patient is a 54-year-old female who presents to the emergency department with altered mental status. There is reported nonsensical speech with some slurring of speech, also has developed some memory disturbance. On examination, the patient has some difficulty answering questions that are asked and following some instructions. At present her mentation has improved, but patient does have optimal paresis, with restricted horizontal eye gaze movement. Rule out Wernicke's Korsakoff syndrome. Septic encephalopathy also in the differential. 2. Rule out Wernicke's Korsakoff syndrome, from malnutrition 3. Elevated CRP which is suggestive of inflammation 4. History of diabetes mellitus 5. History of medication induced mental status changes 6. Diabetes 7. Lactic acidosis 8. C. difficile colitis Plan: 1. Patient has opthalmoparesis. We will check MRI of the brain 2. EEG was performed, which was abnormal due to background slowing of moderate degree. No focal, lateralized or epileptiform activity was seen. 3. B12 810 and ammonia < 9 4. Await vitamin B1 level. Patient on high dose thiamine 250 mg IV PB daily. 5. RPR negative, hepatitis panel negative, HIV negative, influenza, RSV and coronal virus PCR negative. Urine drug screen negative. Blood alcohol level normal. Hemoglobin A1c 5.7. 6. Folate < 2.0. Patient on folate replacement. 7. Discussed with family members in detail.
[2025-02-21] MEDS: MAGNESIUM SULFATE-D5W PMX 1 GM in DEXTROSE/WATER 1 100ML.BAG IVPB SCH (09:57)
[2025-02-21] MEDS: ALPRAZolam 0.5 MG TAB PO PRN (11:45)
--- NOTE | 2025-02-21 12:09 | P.PN ---
Subjective Progress Note Date: 02/21/25 Patient is a 54 year old female with past medical history of type II wkv-vqrukea-jzkgpugqj diabetes mellitus presented to the ED with altered mental status. ED documentation reviewed that states patient's friend helps provide the history. Patient's friend states that she received a call that the patient was confused and weak. Her friend went over to the patient's house when she found out that the patient had a fall yesterday as well as the day before as well as the patient being so weak that she has not been able to get out of bed and is confused. Patient was recently admitted to the hospital here on January 24 2025 with dehydration, hyponatremia, starvation ketosis, gastroparesis resulting in constipation and drug-induced nausea and vomiting. She was discharged home on January 25 2025 with MiraLAX as well as metoclopramide. Patient was hospitalized again at [facility] until the second of this month for dehydration and gastroparesis. Patient's friend mentions that the patient has not taken any of her medications prescribed after discharge. Patient is alert and oriented to time place and person but upon asking why is she in the hospital she keeps mentioning about low blood sugar and low A1c. No family present at bedside at the time of this interview. Upon calling the her son Francis, he mentioned that the patient started acting delusional today all of a sudden. She was well up until then. She was imagining things that weren't there. Aparently the patient just called her son 10 minutes ago to warn him about weird people out there. Patient's son is not aware if patient is on any diabetes medication, but he does mention that the patient hasn't had a glucose monitor in a while. Patient's son mentions that she was on Wegovy for a month and experienced 15-20 pounds weight loss, but she became hypoglycemic and had to be admitted to [facility]. Patient has been of Wegovy since 2 weeks now. Denies fever, chills, shortness of breath, cough, chest pain, palpitations, abdominal pain, nausea, vomiting, hematuria, dysuria, hematochezia, melena, headache, slurred speech, numbness, tingling, dizziness, lightheadedness, blurred vision, double vision. ED documentation reviewed. In the ED patient was treated with 1 L bolus of normal saline, 0.9 normal saline at 150 mL/h, ondansetron. 02/18 - She is seen and examined at bedside this morning, now on the 6th floor. She had no acute events overnight, and has no acute complaints morning. She remains confused, and unable to speak clearly conversation. She is able to formulate sentences without issue, however her responses are not always appropriate to the question being asked and do not always make sense. She continually talks about her being hypoglycemic, despite reassurances that she is not. 02/19 - Patient seen and examined at bedside. No acute events overnight. Mentation improved. Still having diarrhea. Had total of 3 bowel movements since midnight. 02/20 - She is seen and examined at bedside this morning. No acute events overnight. mentation seemingly improved, however remains confused. Diarrhea continues, however endorses only 1 episode overnight. 02/21 - She is seen and examined at bedside this morning. No acute events overnight. Mentation, same as she was yesterday. Able to say where she is, month, the date, her birthday however does not appear to have understanding as to why she is remaining in the hospital. Continues to have regular bouts of diarrhea, however friends/family know that it has been significantly improving from where it was. REVIEW OF SYSTEMS: Pertinent positives and negatives noted in HPI. Physical Exam: General: nontoxic, no distress, appears at stated age Derm: warm, dry, intact Head: atraumatic, normocephalic, symmetric Eyes: EOMI, anicteric sclera Mouth: no lip lesion, mucus membranes moist Cardiovascular: S1 S2 reg, no murmur, rubs, or gallops Lungs: CTA bilateral, no rales, no accessory muscle use Abdominal: soft, non-tender to palpataion, no appreciable organomegaly Extremities: no gross muscle atrophy, no edema, no contractures Neuro: Alert, Oriented, CNII-XII grossly intact, gait normal Psych: well appearing, appropriate affect Data Received Today: Labs: WBC 3.10, hemoglobin 12.3, hematocrit 36.4, platelet 157; sodium 136, potassium 3.7, BUN 4, creatinine 0.42, calcium 8.3, magnesium 1.5 Imagining: EEG showed background slowing of moderate degree, no focal, lateralized or epileptiform activity was seen Assessment and plan Patient is a 54 year old female with past medical history of type II wsy-rhycayz-yievwrfyu diabetes mellitus presented to the ED with altered mental status. #Sepsis, secondary to C. difficile colitis #Acute metabolic encephalopathy likely secondary to above vs possible Wernicke's encephalopathy #Severe folic acid deficiency -Continuing with oral vancomycin 125 mg 4 times daily -Neurology following, EEG showed background slowing of moderate degree, no focal, lateralized or epileptiform activity was seen -Brain MRI w/ & w/o ordered, currently pending -Continuing on folic acid 1 mg daily, theragran multivitamin daily -Continue on thiamine IV 250 mg daily for an additional 5 days (day 2) -Thiamine levels pending -Continue with NS 100 cc/h -Seizure precautions -Physical therapy and occupational therapy consulted #Type 2 diabetes mellitus -Sliding scale insulin -Monitor for hypoglycemia #Mild hypocalcemia, corrected calcium WNL -Calcium 8.3 today, albumin 2.2; Corrected calcium 9.3 -Continue to monitor BMP #Hypomagnesemia -Magnesium 1.5 this morning -Replace 4 g magnesium sulfate -Continue to monitor magnesium levels Resolved: #Lactic acidosis #Metabolic acidosis #Anemia #Starvation ketosis #Hypokalemia Chronic: #Kwq-mcwjagl-sssklqool diabetes mellitus #Gastroparesis -Insulin sliding scale -POC glucose checks DVT ppx: Heparin 5000 units SQ every 12 hours GI PPx: Protonix 40 mg daily Code status: Full code F: NS 100 cc/h E: Replete as needed N: Consistent carbohydrate diet A: Ambulatory Anticipated discharge place: Pending clinical course Anticipated discharge time: Pending clinical course Dictation was produced using [email or web address] dictation software. please excuse any grammatical, word or spelling errors. Rhett Freedman MD PGY-1 IM I have seen and evaluated the patient today. Discussed with the resident and agree with the residents finding and plan as documented in the resident's note. Changes highlighted in blue font. Objective - Vital Signs Vital signs: Vital Signs Temp 97.8 F 02/21/25 01:55 Pulse 92 02/21/25 01:55 Resp 17 02/21/25 01:55 BP 120/78 02/21/25 01:55 Pulse Ox 97 02/21/25 01:55 FiO2 Intake & Output 02/20/25 02/21/25 02/21/25 18:59 06:59 18:59 Intake Total 358 Balance 358 Intake: Oral 358 Other: Voiding Method Toilet Toilet # Voids 1 2 # Bowel Movements 4 - Labs CBC & Chem 7: 02/21/25 04:06 02/21/25 04:06 Labs: Abnormal Lab Results - Last 24 Hours (Table) 02/20/25 02/20/25 02/20/25 Range/Units 05:16 05:16 17:28 WBC 3.03 L (4.50-10.00) X 10*3/uL Hgb 11.9 L (12.0-15.0) g/dL Hct 36.3 L (37.2-46.3) % RDW 15.9 H (11.5-14.5) % Neutrophils # 0.80 L (1.80-7.70) X 10*3/uL Sodium (137-145) mmol/L BUN 7.6 L (9.0-27.0) mg/dL Creatinine (0.52-1.04) mg/dL POC Glucose (mg/dL) 111 H (70-110) mg/dL Calcium 8.4 L (8.7-10.3) mg/dL Magnesium (1.6-2.3) mg/dL 02/20/25 02/21/25 02/21/25 Range/Units 20:35 04:06 04:06 WBC 3.10 L (4.50-10.00) X 10*3/uL Hgb (12.0-15.0) g/dL Hct 36.4 L (37.2-46.3) % RDW 15.7 H (11.5-14.5) % Neutrophils # 1.04 L (1.80-7.70) X 10*3/uL Sodium 136 L (137-145) mmol/L BUN 4 L (9.0-27.0) mg/dL Creatinine 0.42 L (0.52-1.04) mg/dL POC Glucose (mg/dL) 138 H (70-110) mg/dL Calcium 8.3 L (8.7-10.3) mg/dL Magnesium 1.5 L (1.6-2.3) mg/dL Microbiology - Last 24 Hours (Table) 02/18/25 10:51 Blood Culture - Preliminary Blood
[2025-02-21 12:20] LABS: Glucose,Whole Blood 187 mg/dL (70-110)
--- NOTE | 2025-02-21 14:36 | MR ---
INDICATION: Patient age:Female; 54 years old; Reason for study: AMS, r/o wernickes encephalopathy; PHH. COMPARISON: CT brain 02/17/2025. TECHNIQUE: Multi planar, multi sequence imaging was performed through the brain. The patient was then given 7 cc of Gadobutrol intravenously and multi planar, T1 fat-saturation images were obtained. FINDINGS: Susceptibility artifact from the patient's braces limits evaluation. Most pronounced involving the bi lateral inferior frontal lobes. Additionally motion degradation demonstrated. The wise-white junctions, ventricular system, basal cisterns appear unremarkable. Age-appropriate cer ebral parenchymal volume. Diffusion-weighted imaging shows no evidence of restricted diffusion to sug gest acute/subacute infarct. Intracranial arterial flow voids are maintained. Midline structures show no abnormality. No suspicious FLAIR signal abnormalities. No distinct T2/FLAIR hyperintensity identi fied within the dorsomedial thalami or mammillary bodies. No definitive evidence involving the periaq ueductal wise matter. The susceptibility weighted images do not reveal any evidence for micro-hemorrh age. After administration of gadolinium, no abnormal enhancement is seen. The bone marrow signal is within normal limits. The paranasal sinuses and globes are unremarkable. IMPRESSION: The patient's braces and motion degrade examination. No definitive evidence of intracranial mass, acute/subacute infarct, or abnormal enhancement within l imitations. [facility], , 02/21/2025 2:34 PM
[2025-02-21 17:31] LABS: Glucose,Whole Blood 166 mg/dL (70-110)
[2025-02-21 17:32] VITALS: BMI 27.1
[2025-02-21 20:52] LABS: Glucose,Whole Blood 153 mg/dL (70-110)
[2025-02-22 04:34] LABS: Basophils # (A) 0.02 10*3/uL (0.00-0.10); Basophils % (A) 0.7 %; Eosinophils # (A) 0.03 10*3/uL (0.04-0.35); HCT 34.9 % (37.2-46.3); HGB 11.8 g/dL (12.0-15.0); Lymphocytes # (A) 0.72 10*3/uL (0.90-5.00); Lymphocytes % (A) 23.9 %; MCHC 33.8 g/dL (32.0-37.0); MCV 82.7 fL (80.0-97.0); Mean Platelet Volume 10.1 fL (9.5-12.2); Monocytes # (A) 0.75 10*3/uL (0.20-1.00); Monocytes % (A) 24.9 %; Neutrophils # (A) 1.42 10*3/uL (1.80-7.70); Neutrophils % (A) 47.2 %; Platelet Count 155 10*3/uL (140-440); RBC 4.22 10*6/uL (4.10-5.20); RDW 15.6 % (11.5-14.5); WBC 3.01 10*3/uL (4.50-10.00)
[2025-02-22 04:53] LABS: African American GFR (CKD) >90 (>60 ml/min/1.73 sqM); Anion Gap 2 mmol/L; Blood Urea Nitrogen 2 mg/dL (7-17); Calcium 7.8 mg/dL (8.4-10.2); Carbon Dioxide 29 mmol/L (22-30); Chloride 103 mmol/L (98-107); Glucose 106 mg/dL (74-99); Magnesium 2.3 mg/dL (1.6-2.3); Non-African American GFR(CKD) >90 (>60 ml/min/1.73 sqM); Potassium 2.9 mmol/L (3.5-5.1); Sodium 134 mmol/L (137-145)
[2025-02-22 06:39] LABS: Glucose,Whole Blood 92 mg/dL (70-110)
[2025-02-22] MEDS: POTASSIUM CHLORIDE ER 20 MEQ TAB.ER PO SCH (08:33)
--- NOTE | 2025-02-22 08:54 | P.PN ---
Subjective Progress Note Date: 02/21/25 02/21/2025: Patient was seen for a follow-up. Patient's family was present. She still very confused, now better as compared to yesterday. Patient states that she has significant weakness in the legs. She cannot stand on her legs. 02/20/2025: Patient was initially seen by Dr. Latham. Please refer to her note for details. Patient is a 54-year-old female came with altered mental status, found to be positive for C. difficile sepsis. Patient's multiple family members were present by the bedside. They provided with some history. Patient has significant malnutrition. Patient was found to have mild diabetes with hemoglobin A1c 6.5 in the fall of 2023. She was started on Monjaro 2.5 mg injection and she received first dose on 11/09/2024. Her appetite started decreasing. She received another dose of same medication 2.5 mg in December 2024. And then on 01/11/2025, she received 5.0 mg dose of Mounjaro. Her appetite remarkably decreased. She was diagnosed with g astroparesis on 01/24/2025, constantly throwing up, could not keep even water up. And then she developed problems with her gallbladder. She started having problems with memory, hallucinating, putting things together, and forgetful. She would not remember the doctor's. She was confusing if she was in [place]. In the last 5-7 days, patient has developed some double vision. She couldn't focus on the face with blurred vision. They state that patient is "taking memory from long time ago and making sense what's going on now". Family is strongly considering Wernicke's encephalopathy with Korsakoff syndrome. No history of alcoholism. Objective - Vital Signs Vital signs: Vital Signs Temp 98.5 F 02/21/25 14:45 Pulse 94 02/21/25 14:45 Resp 18 02/21/25 14:45 BP 111/77 02/21/25 14:45 Pulse Ox 96 02/21/25 14:45 FiO2 Intake & Output 02/20/25 02/21/25 02/21/25 18:59 06:59 18:59 Intake Total 358 Balance 358 Weight 73.8 kg Intake: Oral 358 Other: Voiding Method Toilet Toilet Toilet # Voids 1 2 # Bowel Movements 4 - Exam Patient is alert and awake in no distress. Patient knows it is February 2025 and that she is in [facility] in [facility]. Speech and language functions appears normal. Cranial nerves significant for significant ophthalmic paresis. Patient has decreased horizontal gaze bilaterally, left more than right. Her vertical gaze is relatively preserved. Face is symmetric. Muscle strength is normal in the arms and legs. No ataxia for lpyheu-eq-xhln testing. Very mild possible ataxia in the lower limbs bilaterally. Sensory touch is equal. Tone and bulk of muscles normal. Deep tendon reflexes are symmetric, 2 at the biceps, 2 brachioradialis, 0 at the knees, 0 ankles and plantars flat bilaterally. - Labs CBC & Chem 7: 02/22/25 03:31 02/22/25 03:31 Labs: Abnormal Lab Results - Last 24 Hours (Table) 02/20/25 02/21/25 02/21/25 Range/Units 20:35 04:06 04:06 WBC 3.10 L (4.50-10.00) 10*3/uL Hct 36.4 L (37.2-46.3) % RDW 15.7 H (11.5-14.5) % Neutrophils # 1.04 L (1.80-7.70) 10*3/uL Sodium 136 L (137-145) mmol/L BUN 4 L (7-17) mg/dL Creatinine 0.42 L (0.52-1.04) mg/dL POC Glucose (mg/dL) 138 H (70-110) mg/dL Calcium 8.3 L (8.4-10.2) mg/dL Magnesium 1.5 L (1.6-2.3) mg/dL Albumin (3.5-5.0) g/dL 02/21/25 02/21/25 02/21/25 Range/Units 04:06 12:18 17:29 WBC (4.50-10.00) 10*3/uL Hct (37.2-46.3) % RDW (11.5-14.5) % Neutrophils # (1.80-7.70) 10*3/uL Sodium (137-145) mmol/L BUN (7-17) mg/dL Creatinine (0.52-1.04) mg/dL POC Glucose (mg/dL) 187 H 166 H (70-110) mg/dL Calcium (8.4-10.2) mg/dL Magnesium (1.6-2.3) mg/dL Albumin 2.2 L (3.5-5.0) g/dL Microbiology - Last 24 Hours (Table) 02/18/25 19:04 Stool Culture - Preliminary Stool 02/18/25 10:51 Blood Culture - Preliminary Blood Assessment and Plan Assessment: 1. The patient is a 54-year-old female who presents to the emergency department with altered mental status. There is reported nonsensical speech with some slurring of speech, also has developed some memory disturbance. On examination, the patient has some difficulty answering questions that are asked and following some instructions. 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 Rule out Wernicke's Korsakoff syndrome. Her reflexes are absent in the lower limbs. Rule out atypical Guillain-White syndrome. Septic encephalopathy also in the differential. 2. Rule out Wernicke's Korsakoff syndrome, from malnutrition 3. Elevated CRP which is suggestive of inflammation 4. History of diabetes mellitus 5. History of medication induced mental status changes 6. Diabetes 7. Lactic acidosis 8. C. difficile colitis Plan: 1. Patient has opthalmoparesis. Exact cause is uncertain. Uncertain if related to Wernicke's Korsakoff syndrome, or related to atypical Guillain-White. However Guillain-White syndrome would not explain altered mentation. 2. EEG was performed, which was abnormal due to background slowing of moderate degree. No focal, lateralized or epileptiform activity was seen. 3. B12 810 and ammonia < 9 4. Await vitamin B1 level. Patient on high dose thiamine 250 mg IV PB daily. 5. RPR negative, hepatitis panel negative, HIV negative, influenza, RSV and coronal virus PCR negative. Urine drug screen negative. Blood alcohol level normal. Hemoglobin A1c 5.7. 6. Folate < 2.0. Patient on folate replacement. 7. MRI of the brain was limited because of patient's braces and motion degraded examination. No definitive evidence of intracranial mass, acute/subacute infarct. No abnormal enhancement within limitations. I personally reviewed MRI, agree with the findings. 8. Patient is not improving. We will check lumbar puncture in the morning to evaluate for CSF proteins. 9. Discussed with family members in detail.
--- NOTE | 2025-02-22 11:26 | P.PN ---
Subjective Progress Note Date: 02/22/25 Patient is a 54 year old female with past medical history of type II xas-fkcosef-cldpgxcea diabetes mellitus presented to the ED with altered mental status. ED documentation reviewed that states patient's friend helps provide the history. Patient's friend states that she received a call that the patient was confused and weak. Her friend went over to the patient's house when she found out that the patient had a fall yesterday as well as the day before as well as the patient being so weak that she has not been able to get out of bed and is confused. Patient was recently admitted to the hospital here on January 24 2025 with dehydration, hyponatremia, starvation ketosis, gastroparesis resulting in constipation and drug-induced nausea and vomiting. She was discharged home on January 25 2025 with MiraLAX as well as metoclopramide. Patient was hospitalized again at [facility] until the second of this month for dehydration and gastroparesis. Patient's friend mentions that the patient has not taken any of her medications prescribed after discharge. Patient is alert and oriented to time place and person but upon asking why is she in the hospital she keeps mentioning about low blood sugar and low A1c. No family present at bedside at the time of this interview. Upon calling the her son Francis, he mentioned that the patient started acting delusional today all of a sudden. She was well up until then. She was imagining things that weren't there. Aparently the patient just called her son 10 minutes ago to warn him about weird people out there. Patient's son is not aware if patient is on any diabetes medication, but he does mention that the patient hasn't had a glucose monitor in a while. Patient's son mentions that she was on Wegovy for a month and experienced 15-20 pounds weight loss, but she became hypoglycemic and had to be admitted to [facility]. Patient has been of Wegovy since 2 weeks now. Denies fever, chills, shortness of breath, cough, chest pain, palpitations, abdominal pain, nausea, vomiting, hematuria, dysuria, hematochezia, melena, headache, slurred speech, numbness, tingling, dizziness, lightheadedness, blurred vision, double vision. ED documentation reviewed. In the ED patient was treated with 1 L bolus of normal saline, 0.9 normal saline at 150 mL/h, ondansetron. 02/18 - She is seen and examined at bedside this morning, now on the 6th floor. She had no acute events overnight, and has no acute complaints morning. She remains confused, and unable to speak clearly conversation. She is able to formulate sentences without issue, however her responses are not always appropriate to the question being asked and do not always make sense. She continually talks about her being hypoglycemic, despite reassurances that she is not. 02/19 - Patient seen and examined at bedside. No acute events overnight. Mentation improved. Still having diarrhea. Had total of 3 bowel movements since midnight. 02/20 - She is seen and examined at bedside this morning. No acute events overnight. mentation seemingly improved, however remains confused. Diarrhea continues, however endorses only 1 episode overnight. 02/21 - She is seen and examined at bedside this morning. No acute events overnight. Mentation, same as she was yesterday. Able to say where she is, month, the date, her birthday however does not appear to have understanding as to why she is remaining in the hospital. Continues to have regular bouts of diarrhea, however friends/family know that it has been significantly improving from where it was. 02/22 - She is seen and examined at bedside this morning. No acute events overnight. As per neurology, plan is for lumbar puncture to be completed today. According to her cousin, who is accompanying her at bedside today, she notes that the biggest improvement is that she is aware that she is confused, which had previously not been the case, however other than that she does not feel as though the improvements have been started. REVIEW OF SYSTEMS: Pertinent positives and negatives noted in HPI. Physical Exam: General: nontoxic, no distress, appears at stated age Derm: warm, dry, intact Head: atraumatic, normocephalic, symmetric Eyes: EOMI, anicteric sclera Mouth: no lip lesion, mucus membranes moist Cardiovascular: S1 S2 reg, no murmur, rubs, or gallops Lungs: CTA bilateral, no rales, no accessory muscle use Abdominal: soft, non-tender to palpataion, no appreciable organomegaly Extremities: no gross muscle atrophy, no edema, no contractures Neuro: Alert, Oriented, CNII-XII grossly intact, gait normal Psych: well appearing, appropriate affect Data Received Today: Labs: WBCs 3.01, hemoglobin 11.8, medic at 34.9, platelet 55; sodium 134, potassium 2.9, BUN 2, creatinine 0.55, calcium 7.8, magnesium 2.5 Imagining: Brain MRI was completed, her braces and motion degraded examination, however no definitive evidence of an intracranial mass, acute/subacute infarct, or abnormal enhancement within limitations Assessment and plan Patient is a 54 year old female with past medical history of type II no v-zmikkuo-hxypdtwup diabetes mellitus presented to the ED with altered mental status. #Sepsis, secondary to C. difficile colitis #Acute metabolic encephalopathy likely secondary to above v aspects of Wernicke's encephalopathy #Severe folic acid deficiency -Continuing with oral vancomycin 125 mg 4 times daily -Neurology following, EEG showed background slowing of moderate degree, no focal, lateralized or epileptiform activity was seen -Brain MRI w/ & w/o completed, read and reviewed -Lumbar puncture to be completed today -Continuing on folic acid 1 mg daily, theragran multivitamin daily -Continue on thiamine IV 250 mg daily for an additional 5 days (day 3/5) -Thiamine levels pending -Continue with NS 100 cc/h -Seizure precautions -Physical therapy and occupational therapy following #Type 2 diabetes mellitus -Sliding scale insulin -Monitor for hypoglycemia #Mild hypocalcemia, corrected calcium WNL -Calcium 7.8 today, albumin 2.2; Corrected calcium 9.3 -Continue to monitor BMP #Hypomagnesemia, resolved -Magnesium 2.3 this morning -Continue to monitor magnesium levels #Hypokalemia -Potassium 2.9 this morning -Replaced with 20 meq every 2 hours for 5 doses -Continue to monitor potassium Resolved: #Lactic acidosis #Metabolic acidosis #Anemia #Starvation ketosis Chronic: #Xjz-iiacuol-gbkqewucr diabetes mellitus #Gastroparesis -Insulin sliding scale -POC glucose checks 2 hourly DVT ppx: Heparin 5000 units SQ every 12 hours (currently being held in preparation for lumbar puncture today) GI PPx: Protonix 40 mg daily Code status: Full code F: NS 100 cc/h E: Replete as needed N: Consistent carbohydrate diet A: Ambulatory Anticipated discharge place: Pending clinical course Anticipated discharge time: Pending clinical course Dictation was produced using [employer] software. please excuse any grammatical, word or spelling errors. Rhett Freedman MD PGY-1 IM Addending attestation I have seen and evaluated the patient today. Discussed with the resident and agree with the residents finding and plan as documented in the resident's note. Changes highlighted in blue font. Objective - Vital Signs Vital signs: Vital Signs Temp 98.9 F 02/22/25 00:07 Pulse 109 H 02/22/25 00:07 Resp 18 02/22/25 00:07 BP 103/67 02/22/25 00:07 Pulse Ox 95 02/22/25 00:07 FiO2 Intake & Output 02/21/25 02/22/25 02/22/25 18:59 06:59 18:59 Weight 73.8 kg Other: Voiding Method Toilet # Voids 3 # Bowel Movements 1 - Labs CBC & Chem 7: 02/22/25 03:31 02/22/25 03:31 Labs: Abnormal Lab Results - Last 24 Hours (Table) 02/21/25 02/21/25 02/21/25 Range/Units 04:06 12:18 17:29 WBC (4.50-10.00) 10*3/uL Hgb (12.0-15.0) g/dL Hct (37.2-46.3) % RDW (11.5-14.5) % Immature Gran # (0.00-0.04) 10*3/uL Neutrophils # (1.80-7.70) 10*3/uL Lymphocytes # (0.90-5.00) 10*3/uL Eosinophils # (0.04-0.35) 10*3/uL Sodium (137-145) mmol/L Potassium (3.5-5.1) mmol/L BUN (7-17) mg/dL Creatinine (0.52-1.04) mg/dL Glucose (74-99) mg/dL POC Glucose (mg/dL) 187 H 166 H (70-110) mg/dL Calcium (8.4-10.2) mg/dL Albumin 2.2 L (3.5-5.0) g/dL 02/21/25 02/22/25 02/22/25 Range/Units 20:50 03:31 03:31 WBC 3.01 L (4.50-10.00) 10*3/uL Hgb 11.8 L (12.0-15.0) g/dL Hct 34.9 L (37.2-46.3) % RDW 15.6 H (11.5-14.5) % Immature Gran # 0.07 H (0.00-0.04) 10*3/uL Neutrophils # 1.42 L (1.80-7.70) 10*3/uL Lymphocytes # 0.72 L (0.90-5.00) 10*3/uL Eosinophils # 0.03 L (0.04-0.35) 10*3/uL Sodium 134 L (137-145) mmol/L Potassium 2.9 L (3.5-5.1) mmol/L BUN 2 L (7-17) mg/dL Creatinine 0.45 L (0.52-1.04) mg/dL Glucose 106 H (74-99) mg/dL POC Glucose (mg/dL) 153 H (70-110) mg/dL Calcium 7.8 L (8.4-10.2) mg/dL Albumin (3.5-5.0) g/dL Microbiology - Last 24 Hours (Table) 02/18/25 10:51 Blood Culture - Preliminary Blood 02/18/25 19:04 Stool Culture - Preliminary Stool
[2025-02-22 12:13] LABS: Glucose,Whole Blood 119 mg/dL (70-110)
[2025-02-22] MEDS: LIDOCAINE 1% INJ 10MG/ML (20 ML MDV) SQ ONE (17:50)
[2025-02-22 18:14] LABS: Glucose,Whole Blood 93 mg/dL (70-110)
[2025-02-22] MEDS: PYRIDOXINE 50 MG TAB PO SCH (18:30)
[2025-02-22 18:50] LABS: Glucose,CSF 74 mg/dL (40-70); Total Protein,CSF 43 mg/dL (12-60)
[2025-02-22 19:19] LABS: Glucose,Whole Blood 100 mg/dL (70-110)
[2025-02-22 19:43] LABS: Appearance,CSF Clear; CSF Tube Number 4; Nucleated Cells, CSF 2 u/L (0-5); Red Blood Cell,CSF 1 u/L (0-10)
[2025-02-23 05:40] LABS: HCT 38.3 % (37.2-46.3); HGB 12.7 g/dL (12.0-15.0); MCHC 33.2 g/dL (32.0-37.0); MCV 84.5 fL (80.0-97.0); Mean Platelet Volume 10.7 fL (9.5-12.2); Platelet Count 197 10*3/uL (140-440); RBC 4.53 10*6/uL (4.10-5.20); RDW 15.9 % (11.5-14.5); WBC 3.69 10*3/uL (4.50-10.00)
[2025-02-23 06:08] LABS: African American GFR (CKD) >90 (>60 ml/min/1.73 sqM); Anion Gap 5 mmol/L; Blood Urea Nitrogen 7 mg/dL (7-17); Calcium 8.2 mg/dL (8.4-10.2); Carbon Dioxide 26 mmol/L (22-30); Chloride 106 mmol/L (98-107); Glucose 106 mg/dL (74-99); Non-African American GFR(CKD) >90 (>60 ml/min/1.73 sqM); Potassium 3.8 mmol/L (3.5-5.1); Sodium 137 mmol/L (137-145)
[2025-02-23 06:46] LABS: Glucose,Whole Blood 115 mg/dL (70-110)
--- NOTE | 2025-02-23 09:08 | P.PN ---
Subjective Progress Note Date: 02/22/25 02/22/2025: Patient was seen for follow-up. Patient's cousin Cassandra was present by the bedside. Patient has clinically improved. She is able to talk in sentences making complete sense. I did not notice patient saying anything out of ordinary, are out of context. She is ready for lumbar puncture. The nurse has obtained consent from the patient, and patient's next of kin, that is her so n and patient's cousin Cassandra. Family is considering transfer to [facility]. 02/21/2025: Patient was seen for a follow-up. Patient's family was present. She still very confused, now better as compared to yesterday. Patient states that she has significant weakness in the legs. She cannot stand on her legs. 02/20/2025: Patient was initially seen by Dr. Latham. Please refer to her note for details. Patient is a 54-year-old female came with altered mental status, found to be positive for C. difficile sepsis. Patient's multiple family members were present by the bedside. They provided with some history. Patient has significant malnutrition. Patient was found to have mild diabetes with hemoglobin A1c 6.5 in the fall of 2023. She was started on Monjaro 2.5 mg injection and she received first dose on 11/09/2024. Her appetite started decreasing. She received another dose of same medication 2.5 mg in December 2024. And then on 01/11/2025, she received 5.0 mg dose of Mounjaro. Her appetite remarkably decreased. She was diagnosed with gastroparesis on 01/24/2025, constantly throwing up, could not keep even water up. And then she developed problems with her gallbladder. She started having problems with memory, hallucinating, putting things together, and forgetful. She would not remember the doctor's. She was confusing if she was in [place]. In the last 5-7 days, patient has developed some double vision. She couldn't focus on the face with blurred vision. They state that patient is "taking memory from long time ago and making sense what's going on now". Family is strongly considering Wernicke's encephalopathy with Korsakoff syndrome. No history of alcoholism. Objective - Vital Signs Vital signs: Vital Signs Temp 98.4 F 02/22/25 14:00 Pulse 99 02/22/25 14:00 Resp 16 02/22/25 14:00 BP 116/80 02/22/25 14:00 Pulse Ox 96 02/22/25 14:00 FiO2 Intake & Output 02/21/25 02/22/25 02/22/25 18:59 06:59 18:59 Weight 73.8 kg Other: Voiding Method Toilet Toilet # Voids 3 # Bowel Movements 1 - Exam Patient is alert and awake in no distress. Patient knows it is February 2025 and that she is in [facility] in [facility]. Speech and language functions appears normal. Cranial nerves significant for significant ophthalmoparesis, although appears slightly better than yesterday. Patient has decreased horizontal gaze bilaterally, left more than right. Her vertical gaze is relatively preserved. Face is symmetric. Muscle strength is normal in the arms and legs. No ataxia for trqnqu-qd-muwv testing. Very mild possible ataxia in the lower limbs bilaterally. Sensory touch is equal. Tone and bulk of muscles normal. Deep tendon reflexes are symmetric, 2 at the biceps, 2 brachioradialis, 0 at the knees, 0 ankles and plantars flat bilaterally. - Labs CBC & Chem 7: 02/23/25 04:51 02/23/25 04:51 Labs: Abnormal Lab Results - Last 24 Hours (Table) 02/18/25 02/21/25 02/21/25 Range/Units 17:14 17:29 20:50 WBC (4.50-10.00) 10*3/uL Hgb (12.0-15.0) g/dL Hct (37.2-46.3) % RDW (11.5-14.5) % Immature Gran # (0.00-0.04) 10*3/uL Neutrophils # (1.80-7.70) 10*3/uL Lymphocytes # (0.90-5.00) 10*3/uL Eosinophils # (0.04-0.35) 10*3/uL Sodium (137-145) mmol/L Potassium (3.5-5.1) mmol/L BUN (7-17) mg/dL Creatinine (0.52-1.04) mg/dL Glucose (74-99) mg/dL POC Glucose (mg/dL) 166 H 153 H (70-110) mg/dL Calcium (8.4-10.2) mg/dL Vitamin B6 <2 L (5-50) ug/L 02/22/25 02/22/25 02/22/25 Range/Units 03:31 03:31 12:11 WBC 3.01 L (4.50-10.00) 10*3/uL Hgb 11.8 L (12.0-15.0) g/dL Hct 34.9 L (37.2-46.3) % RDW 15.6 H (11.5-14.5) % Immature Gran # 0.07 H (0.00-0.04) 10*3/uL Neutrophils # 1.42 L (1.80-7.70) 10*3/uL Lymphocytes # 0.72 L (0.90-5.00) 10*3/uL Eosinophils # 0.03 L (0.04-0.35) 10*3/uL Sodium 134 L (137-145) mmol/L Potassium 2.9 L (3.5-5.1) mmol/L BUN 2 L (7-17) mg/dL Creatinine 0.45 L (0.52-1.04) mg/dL Glucose 106 H (74-99) mg/dL POC Glucose (mg/dL) 119 H (70-110) mg/dL Calcium 7.8 L (8.4-10.2) mg/dL Vitamin B6 (5-50) ug/L Microbiology - Last 24 Hours (Table) 02/18/25 19:04 Stool Culture - Preliminary Stool 02/18/25 10:51 Blood Culture - Preliminary Blood Assessment and Plan Assessment: 1. The patient is a 54-year-old female who presents to the emergency department with altered mental status. There is reported nonsensical speech with some slurring of speech, also has developed some memory disturbance. On examination, the patient has some difficulty answering questions that are asked and following some instructions. 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 Rule out Wernicke's Korsakoff syndrome. Her reflexes are absent in the lower limbs. Rule out atypical Guillain-White syndrome. 2. Rule out Wernicke's Korsakoff syndrome, from malnutrition 3. Elevated CRP which is suggestive of inflammation 4. History of diabetes mellitus 5. History of medication induced mental status changes 6. Diabetes 7. Lactic acidosis 8. C. difficile colitis 9. Folic acid deficiency 10. Vitamin B6 deficiency Plan: 1. Patient has opthalmoparesis. Exact cause is uncertain. Uncertain if related to Wernicke's Korsakoff syndrome, or related to atypical Guillain-White. However Guillain-White syndrome would not explain altered mentation. 2. EEG was performed, which was abnormal due to background slowing of moderate degree. No focal, lateralized or epileptiform activity was seen. 3. B12 810 and ammonia < 9. Vitamin B6 < 2, folic acid < 2.0. Vitamin B12 810, vitamin D 25.8 TSH 1.15. We will also check vitamin A, vitamin C. 4. Await vitamin B1 level. Patient on high dose thiamine 250 mg IV PB daily. 5. RPR negative, hepatitis panel negative, HIV negative, influenza, RSV and coronal virus PCR negative. Urine drug screen negative. Blood alcohol level normal. Hemoglobin A1c 5.7. 6. Folate < 2.0. Patient on folate replacement. 7. MRI of the brain was limited because of patient's braces and motion degraded examination. No definitive evidence of intracranial mass, acute/subacute infarct. No abnormal enhancement within limitations. I personally reviewed MRI, agree with the findings. 8. Patient to undergo lumbar puncture today to evaluate for CSF protein, to rule out Guillain-White syndrome. 9. Discussed with family members in detail. Family wants patient to be transferred to [facility].
--- NOTE | 2025-02-23 11:01 | P.PN ---
Subjective Progress Note Date: 02/23/25 Patient is a 54 year old female with past medical history of type II njk-rjkjzut-vvolzcbaz diabetes mellitus presented to the ED with altered mental status. ED documentation reviewed that states patient's friend helps provide the history. Patient's friend states that she received a call that the patient was confused and weak. Her friend went over to the patient's house when she found out that the patient had a fall yesterday as well as the day before as well as the patient being so weak that she has not been able to get out of bed and is confused. Patient was recently admitted to the hospital here on January 24 2025 with dehydration, hyponatremia, starvation ketosis, gastroparesis resulting in constipation and drug-induced nausea and vomiting. She was discharged home on January 25 2025 with MiraLAX as well as metoclopramide. Patient was hospitalized again at [facility] until the second of this month for dehydration and gastroparesis. Patient's friend mentions that the patient has not taken any of her medications prescribed after discharge. Patient is alert and oriented to time place and person but upon asking why is she in the hospital she keeps mentioning about low blood sugar and low A1c. No family present at bedside at the time of this interview. Upon calling the her son Francis, he mentioned that the patient started acting delusional today all of a sudden. She was well up until then. She was imagining things that weren't there. Aparently the patient just called her son 10 minutes ago to warn him about weird people out there. Patient's son is not aware if patient is on any diabetes medication, but he does mention that the patient hasn't had a glucose monitor in a while. Patient's son mentions that she was on Wegovy for a month and experienced 15-20 pounds weight loss, but she became hypoglycemic and had to be admitted to [facility]. Patient has been of Wegovy since 2 weeks now. Denies fever, chills, shortness of breath, cough, chest pain, palpitations, abdominal pain, nausea, vomiting, hematuria, dysuria, hematochezia, melena, headache, slurred speech, numbness, tingling, dizziness, lightheadedness, blurred vision, double vision. ED documentation reviewed. In the ED patient was treated with 1 L bolus of normal saline, 0.9 normal saline at 150 mL/h, ondansetron. 02/18 - She is seen and examined at bedside this morning, now on the 6th floor. She had no acute events overnight, and has no acute complaints morning. She remains confused, and unable to speak clearly conversation. She is able to formulate sentences without issue, however her responses are not always appropriate to the question being asked and do not always make sense. She continually talks about her being hypoglycemic, despite reassurances that she is not. 02/19 - Patient seen and examined at bedside. No acute events overnight. Mentation improved. Still having diarrhea. Had total of 3 bowel movements since midnight. 02/20 - She is seen and examined at bedside this morning. No acute events overnight. mentation seemingly improved, however remains confused. Diarrhea continues, however endorses only 1 episode overnight. 02/21 - She is seen and examined at bedside this morning. No acute events overnight. Mentation, same as she was yesterday. Able to say where she is, month, the date, her birthday however does not appear to have understanding as to why she is remaining in the hospital. Continues to have regular bouts of diarrhea, however friends/family know that it has been significantly improving from where it was. 02/22 - She is seen and examined at bedside this morning. No acute events overnight. As per neurology, plan is for lumbar puncture to be completed today. According to her cousin, who is accompanying her at bedside today, she notes that the biggest improvement is that she is aware that she is confused, which had previously not been the case, however other than that she does not feel as though the improvements have been started. 02/23 - She is seen and examined at bedside this morning. No acute events overnight and no acute complaints this morning. Mentation showing some signs of improvement, able to carry a fully coherent conversation with his morning. Best friend at bedside, notes she feels as though improvements are made, however not back to her usual baseline. REVIEW OF SYSTEMS: Pertinent positives and negatives noted in HPI. Physical Exam: General: nontoxic, no distress, appears at stated age Derm: warm, dry, intact Head: atraumatic, normocephalic, symmetric Eyes: EOMI, anicteric sclera Mouth: no lip lesion, mucus membranes moist Cardiovascular: S1 S2 reg, no murmur, rubs, or gallops Lungs: CTA bilateral, no rales, no accessory muscle use Abdominal: soft, non-tender to palpataion, no appreciable organomegaly Extremities: no gross muscle atrophy, no edema, no contractures Neuro: Alert, Oriented, CNII-XII grossly intact, gait normal Psych: well appearing, appropriate affect Data Received Today: Labs: WBCs 3.69, hemoglobin 12.7, hct 38.3, platelet 197; sodium 137, potassium 3.8, BUN 2, creatinine 0.71, calcium 8.2, magnesium 1.9 Imagining: No new imaging today Assessment and plan Patient is a 54 year old female with past medical history of type II uwt-iymyjaa-yorxduucw diabetes mellitus presented to the ED with altered mental status. #Sepsis, secondary to C. difficile colitis #Likely Wernicke's encephalopathy #Severe folic acid deficiency -Continuing with oral vancomycin 125 mg 4 times daily -Lumbar puncture showed elevated glucose, but otherwise unremarkable -Continuing on folic acid 1 mg daily, theragran multivitamin daily -Continue on thiamine IV 250 mg daily for an additional 5 days (day 4/5) -Neurology following; extensive laboratory workup ordered, currently pending -Thiamine levels pending -Continue with NS 100 cc/h -Seizure precautions -Physical therapy and occupational therapy following #Type 2 diabetes mellitus -Sliding scale insulin -Monitor for hypoglycemia #Mild hypocalcemia, corrected calcium WNL -Calcium 8.2 this morning -Continue to monitor BMP #Hypomagnesemia, resolved -Magnesium 1.9 this morning -Continue to monitor magnesium levels #Hypokalemia, resolved -Potassium 3.8 this morning -Continue to monitor potassium Resolved: #Lactic acidosis #Metabolic acidosis #Anemia #Starvation ketosis Chronic: #Pok-yjnvgam-nuhdyzrqc diabetes mellitus #Gastroparesis -Insulin sliding scale -POC glucose checks 2 hourly DVT ppx: Heparin 5000 units SQ every 12 hours (currently being held in preparation for lumbar puncture today) GI PPx: Protonix 40 mg daily Code status: Full code F: NS 100 cc/h E: Replete as needed N: Consistent carbohydrate diet A: Ambulatory Anticipated discharge place: SNF (discussed with case management about placement) Anticipated discharge time: Patient will be stable for discharge tomorrow after completing her thiamine course. Dictation was produced using [employer] software. please excuse any grammatical, word or spelling errors. Rhett Freedman MD PGY-1 IM Addending attestation I have seen and evaluated the patient today. Discussed with the resident and agree with the residents finding and plan as documented in the resident's note. Changes highlighted in blue font. Objective - Vital Signs Vital signs: Vital Signs Temp 98.2 F 02/23/25 02:00 Pulse 97 02/23/25 02:00 Resp 17 02/23/25 02:00 BP 128/88 02/23/25 02:00 Pulse Ox 96 02/23/25 02:00 FiO2 Intake & Output 02/22/25 02/23/25 02/23/25 18:59 06:59 18:59 Intake Total 1080 Balance 1080 Intake: Oral 1080 Other: Voiding Method Toilet Bedside Commode # Voids 1 # Bowel Movements 1 - Labs CBC & Chem 7: 02/23/25 04:51 02/23/25 04:51 Labs: Abnormal Lab Results - Last 24 Hours (Table) 02/18/25 02/22/25 02/22/25 Range/Units 17:14 12:11 18:15 WBC (4.50-10.00) 10*3/uL RDW (11.5-14.5) % Glucose (74-99) mg/dL POC Glucose (mg/dL) 119 H (70-110) mg/dL Calcium (8.4-10.2) mg/dL Vitamin B6 <2 L (5-50) ug/L CSF Glucose 74 H (40-70) mg/dL 02/23/25 02/23/25 02/23/25 Range/Units 04:51 04:51 06:44 WBC 3.69 L (4.50-10.00) 10*3/uL RDW 15.9 H (11.5-14.5) % Glucose 106 H (74-99) mg/dL POC Glucose (mg/dL) 115 H (70-110) mg/dL Calcium 8.2 L (8.4-10.2) mg/dL Vitamin B6 (5-50) ug/L CSF Glucose (40-70) mg/dL Microbiology - Last 24 Hours (Table) 02/22/25 18:15 CSF Gram Stain - Preliminary Cerebral Spinal Fluid 02/18/25 19:04 Stool Culture - Preliminary Stool
[2025-02-23 12:55] LABS: Glucose,Whole Blood 95 mg/dL (70-110)
[2025-02-23 17:46] LABS: Glucose,Whole Blood 151 mg/dL (70-110)
[2025-02-23 20:40] LABS: Glucose,Whole Blood 123 mg/dL (70-110)
[2025-02-24 05:47] LABS: HCT 35.9 % (37.2-46.3); HGB 11.9 g/dL (12.0-15.0); MCH 28.2 pg (27.0-32.0); MCHC 33.1 g/dL (32.0-37.0); MCV 85.1 fL (80.0-97.0); Mean Platelet Volume 9.9 fL (9.5-12.2); Platelet Count 230 10*3/uL (140-440); RBC 4.22 10*6/uL (4.10-5.20); RDW 16.5 % (11.5-14.5); WBC 4.18 10*3/uL (4.50-10.00)
[2025-02-24 05:58] LABS: African American GFR (CKD) >90 (>60 ml/min/1.73 sqM); Anion Gap 4 mmol/L; Blood Urea Nitrogen 5 mg/dL (7-17); Calcium 8.3 mg/dL (8.4-10.2); Carbon Dioxide 26 mmol/L (22-30); Chloride 106 mmol/L (98-107); Glucose 104 mg/dL (74-99); Magnesium 1.8 mg/dL (1.6-2.3); Non-African American GFR(CKD) >90 (>60 ml/min/1.73 sqM); Potassium 3.8 mmol/L (3.5-5.1); Sodium 136 mmol/L (137-145)
--- NOTE | 2025-02-24 09:52 | P.PN ---
Subjective Progress Note Date: 02/23/25 02/23/2025: Patient was seen for a follow-up. Patient's cousin Cassandra was also present and another friend. Patient says that she is doing slightly better. Her vision has improved including diplopia. She still a little stiff. She walked with walker to the bathroom. She feels she is getting stronger. She is eating healthy and finishing her meals well. No worsening. 02/22/2025: Patient was seen for follow-up. Patient's cousin Cassandra was present by the bedside. Patient has clinically improved. She is able to talk in sentences making complete sense. I did not notice patient saying anything out of ordinary, are out of context. She is ready for lumbar puncture. The nurse has obtained consent from the patient, and patient's next of kin, that is her son and patient's cousin Cassandra. Family is considering transfer to [facility]. 02/21/2025: Patient was seen for a follow-up. Patient's family was present. She still very confused, now better as compared to yesterday. Patient states that she has significant weakness in the legs. She cannot stand on her legs. 02/20/2025: Patient was initially seen by Dr. Latham. Please refer to her note for details. Patient is a 54-year-old female came with altered mental status, found to be positive for C. difficile sepsis. Patient's multiple family members were present by the bedside. They provided with some history. Patient has significant malnutrition. Patient was found to have mild diabetes with hemoglobin A1c 6.5 in the fall of 2023. She was started on Monjaro 2.5 mg injection and she received first dose on 11/09/2024. Her appetite started decreasing. She received another dose of same medication 2.5 mg in December 2024. And then on 01/11/2025, she received 5.0 mg dose of Mounjaro. Her appetite remarkably decreased. She was diagnosed with gastroparesis on 01/24/2025, constantly throwing up, could not keep even water up. And then she developed problems with her gallbladder. She started having problems with memory, hallucinating, putting things together, and forgetful. She would not remember the doctor's. She was confusing if she was in [place]. In the last 5-7 days, patient has developed some double vision. She couldn't focus on the face with blurred vision. They state that patient is "taking memory from long time ago and making sense what's going on now". Family is strongly considering Wernicke's encephalopathy with Korsakoff syndrome. No history of alcoholism. Objective - Vital Signs Vital signs: Vital Signs Temp 98.2 F 02/23/25 15:08 Pulse 100 02/23/25 15:08 Resp 18 02/23/25 15:08 BP 121/83 02/23/25 15:08 Pulse Ox 98 02/23/25 15:08 FiO2 Intake & Output 02/22/25 02/23/25 02/23/25 18:59 06:59 18:59 Intake Total 1080 Balance 1080 Intake: Oral 1080 Other: Voiding Method Toilet Bedside Commode Toilet Bedside Commode # Voids 1 3 # Bowel Movements 1 2 - Exam Patient is alert and awake in no distress. Patient knows it is February 2025 and that she is in [facility] in [facility]. Speech and language functions appears normal. Patient can name and repeat very well. She is talking complete sense, with no tangential thoughts. Cranial nerves significant for significant ophthalmoparesis, although appears slightly further better than yesterday. Patient has decreased horizontal gaze bilaterally, left more than right. Her vertical gaze is relatively preserved. She does have significant nystagmus with vertical gaze. Face is symmetric. Muscle strength is normal in the arms and legs. Her hip flexion range of motion is decreased but patient was able to give good resistance bilaterally. No ataxia for [id number] testing. No definitive ataxia in the lower limbs bilaterally. Patient's left hip flexion appears weak, not able to lift her leg to do [id number]. With assist, she was able to minimally slide her heel on the palacios. Sensory touch is equal. Tone and bulk of muscles normal. Deep tendon reflexes are symmetric, 2+ at the biceps, 2+ brachioradialis, 0 at the knees, 0 ankles and plantars flat bilaterally. - Labs CBC & Chem 7: 02/24/25 05:28 02/24/25 05:28 Labs: Abnormal Lab Results - Last 24 Hours (Table) 02/22/25 02/23/25 02/23/25 Range/Units 18:15 04:51 04:51 WBC 3.69 L (4.50-10.00) 10*3/uL RDW 15.9 H (11.5-14.5) % Glucose (74-99) mg/dL POC Glucose (mg/dL) (70-110) mg/dL Calcium (8.4-10.2) mg/dL Vitamin D 25-Hydroxy 25.8 L (30.0-100.0) ng/mL CSF Glucose 74 H (40-70) mg/dL 02/23/25 02/23/25 Range/Units 04:51 06:44 WBC (4.50-10.00) 10*3/uL RDW (11.5-14.5) % Glucose 106 H (74-99) mg/dL POC Glucose (mg/dL) 115 H (70-110) mg/dL Calcium 8.2 L (8.4-10.2) mg/dL Vitamin D 25-Hydroxy (30.0-100.0) ng/mL CSF Glucose (40-70) mg/dL Microbiology - Last 24 Hours (Table) 02/18/25 19:04 Stool Culture - Final Stool 02/22/25 18:15 CSF Gram Stain - Preliminary Cerebral Spinal Fluid Assessment and Plan Assessment: 1. The patient is a 54-year-old female who presents to the emergency department with altered mental status. There is reported nonsensical speech with some slurring of speech, also has developed some memory disturbance. On examination, the patient has some difficulty answering questions that are asked and following some instructions. 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 Rule out Wernicke's Korsakoff syndrome. Her reflexes are absent in the lower limbs. Rule out atypical Guillain-White syndrome. 2. Rule out Wernicke's Korsakoff syndrome, from malnutrition 3. Elevated CRP which is suggestive of inflammation 4. History of diabetes mellitus 5. History of medication induced mental status changes 6. Diabetes 7. Lactic acidosis 8. C. difficile colitis 9. Folic acid deficiency 10. Vitamin B6 deficiency Plan: 1. Patient's ophthalmoparesis is getting better, therefore does not appear Guillain-White syndrome. Possibly related to Wernicke's Korsakoff syndrome. Patient states her muscle strength is getting better. 2. EEG was performed, which was abnormal due to background slowing of moderate degree. No focal, lateralized or epileptiform activity was seen. 3. B12 810 and ammonia < 9. Vitamin B6 < 2, folic acid < 2.0. Vitamin B12 810, vitamin D 25.8 TSH 1.15. We will also check an MMA, vitamin A, vitamin C, copper and zinc. 4. Await vitamin B1 level. Patient on high dose thiamine 250 mg IV PB daily. 5. RPR negative, hepatitis panel negative, HIV negative, influenza, RSV and coronal virus PCR negative. Urine drug screen negative. Blood alcohol level normal. Hemoglobin A1c 5.7. 6. Folate < 2.0. Patient on folate replacement. 7. MRI of the brain was limited because of patient's braces and motion degraded examination. No definitive evidence of intracranial mass, acute/subacute infarct. No abnormal enhancement within limitations. I personally reviewed MRI, agree with the findings. 8. CSF showed WBC 2, RBC 1, CSF glucose 74, CSF total protein 43(12-60). Comprehensive viral panel negative. Awaiting CSF Lyme, MS panel, angiotensin converting enzyme, 9. Discussed with family members in detail. Family does not wish to transfer to [facility] at this point, as patient is getting better.
--- NOTE | 2025-02-24 10:46 | P.PN ---
Subjective Progress Note Date: 02/24/25 Patient is a 54 year old female with past medical history of type II beg-hsttdem-sqmsksrvr diabetes mellitus presented to the ED with altered mental status. ED documentation reviewed that states patient's friend helps provide the history. Patient's friend states that she received a call that the patient was confused and weak. Her friend went over to the patient's house when she found out that the patient had a fall yesterday as well as the day before as well as the patient being so weak that she has not been able to get out of bed and is confused. Patient was recently admitted to the hospital here on January 24 2025 with dehydration, hyponatremia, starvation ketosis, gastroparesis resulting in constipation and drug-induced nausea and vomiting. She was discharged home on January 25 2025 with MiraLAX as well as metoclopramide. Patient was hospitalized again at [facility] until the second of this month for dehydration and gastroparesis. Patient's friend mentions that the patient has not taken any of her medications prescribed after discharge. Patient is alert and oriented to time place and person but upon asking why is she in the hospital she keeps mentioning about low blood sugar and low A1c. No family present at bedside at the time of this interview. Upon calling the her son Francis, he mentioned that the patient started acting delusional today all of a sudden. She was well up until then. She was imagining things that weren't there. Aparently the patient just called her son 10 minutes ago to warn him about weird people out there. Patient's son is not aware if patient is on any diabetes medication, but he does mention that the patient hasn't had a glucose monitor in a while. Patient's son mentions that she was on Wegovy for a month and experienced 15-20 pounds weight loss, but she became hypoglycemic and had to be admitted to [facility]. Patient has been of Wegovy since 2 weeks now. Denies fever, chills, shortness of breath, cough, chest pain, palpitations, abdominal pain, nausea, vomiting, hematuria, dysuria, hematochezia, melena, headache, slurred speech, numbness, tingling, dizziness, lightheadedness, blurred vision, double vision. ED documentation reviewed. In the ED patient was treated with 1 L bolus of normal saline, 0.9 normal saline at 150 mL/h, ondansetron. 02/18 - She is seen and examined at bedside this morning, now on the 6th floor. She had no acute events overnight, and has no acute complaints morning. She remains confused, and unable to speak clearly conversation. She is able to formulate sentences without issue, however her responses are not always appropriate to the question being asked and do not always make sense. She continually talks about her being hypoglycemic, despite reassurances that she is not. 02/19 - Patient seen and examined at bedside. No acute events overnight. Mentation improved. Still having diarrhea. Had total of 3 bowel movements since midnight. 02/20 - She is seen and examined at bedside this morning. No acute events overnight. mentation seemingly improved, however remains confused. Diarrhea continues, however endorses only 1 episode overnight. 02/21 - She is seen and examined at bedside this morning. No acute events overnight. Mentation, same as she was yesterday. Able to say where she is, month, the date, her birthday however does not appear to have understanding as to why she is remaining in the hospital. Continues to have regular bouts of diarrhea, however friends/family know that it has been significantly improving from where it was. 02/22 - She is seen and examined at bedside this morning. No acute events overnight. As per neurology, plan is for lumbar puncture to be completed today. According to her cousin, who is accompanying her at bedside today, she notes that the biggest improvement is that she is aware that she is confused, which had previously not been the case, however other than that she does not feel as though the improvements have been started. 02/23 - She is seen and examined at bedside this morning. No acute events overnight and no acute complaints this morning. Mentation showing some signs of improvement, able to carry a fully coherent conversation with his morning. Best friend at bedside, notes she feels as though improvements are made, however not back to her usual baseline. 02/24 - She is seen and examined at bedside this morning. No acute events overnight no acute events morning. States she will be receiving last dose (03/13) of 200 mg IV thiamine. Additionally, discussed with the patient and her family/friends the desire to possibly be discharged to subacute rehab to further improve her strength and ability to function closer to her baseline. Discussed with case management, options will be discussed with the patient and her family, with likely discharge to occur tomorrow. Possibility of home with home care is most likely option at this point. REVIEW OF SYSTEMS: Pertinent positives and negatives noted in HPI. Physical Exam: General: nontoxic, no distress, appears at stated age Derm: warm, dry, intact Head: atraumatic, normocephalic, symmetric Eyes: EOMI, anicteric sclera Mouth: no lip lesion, mucus membranes moist Cardiovascular: S1 S2 reg, no murmur, rubs, or gallops Lungs: CTA bilateral, no rales, no accessory muscle use Abdominal: soft, non-tender to palpataion, no appreciable organomegaly Extremities: no gross muscle atrophy, no edema, no contractures Neuro: Alert, Oriented, CNII-XII grossly intact, gait normal Psych: well appearing, appropriate affect Data Received Today: Labs: WBC 4.18, hemoglobin 11.9, hematocrit 35.9, platelet 230; sodium 136, potassium 3.8, BUN 5, creatinine 0.52, calcium 8.3, magnesium 1.8 Imagining: No new imaging today Assessment and plan Patient is a 54 year old female with past medical history of type II ohb-fmovvsd-ypksmkjzu diabetes mellitus presented to the ED with altered mental status. #Sepsis, secondary to C. difficile colitis #Likely Wernicke's encephalopathy #Severe folic acid deficiency -Continuing with oral vancomycin 125 mg 4 times daily -Continuing on folic acid 1 mg daily, theragran multivitamin daily -Continue on thiamine IV 250 mg daily for an additional 5 days (day 5/5) -Neurology following; extensive laboratory workup ordered, currently pending -Thiamine levels pending -Continue with NS 100 cc/h -Seizure precautions -Physical therapy and occupational therapy following #Type 2 diabetes mellitus -Sliding scale insulin -Monitor for hypoglycemia #Mild hypocalcemia, corrected calcium WNL -Calcium 8.3 this morning -Continue to monitor BMP #Hypomagnesemia, resolved -Magnesium 1.8 this morning -Continue to monitor magnesium levels #Hypokalemia, resolved -Potassium 3.8 this morning -Continue to monitor potassium Resolved: #Lactic acidosis #Metabolic acidosis #Anemia #Starvation ketosis Chronic: #Scx-jldihyt-pnceedojg diabetes mellitus #Gastroparesis -Insulin sliding scale -POC glucose checks 2 hourly DVT ppx: Heparin 5000 units SQ every 12 hours GI PPx: Protonix 40 mg daily Code status: Full code F: NS 100 cc/h E: Replete as needed N: Consistent carbohydrate diet A: Ambulatory Anticipated discharge place: Possibly [facility] or home with home care Anticipated discharge time: Will be stable for discharge today following planning course, will discuss with case management time Dictation was produced using [employer] dictation software. please excuse any grammatical, word or spelling errors. Rhett Freedman MD PGY-1 IM I saw and evaluated the patient during the walter and critical portions of this encounter, and discussed the case in detail with the resident author of this note, I agree with the Assessment and Plan, and my changes, if any, are highlighted in blue. This patient appears stable and close to baseline. Has been ambulating in the hallways more than 100 feet. Her confusion seems to improved significantly. At this point she is stable for discharge and will be discharged today, discharge summary to follow. Objective - Vital Signs Vital signs: Vital Signs Temp 97.9 F 02/24/25 02:00 Pulse 96 02/24/25 02:00 Resp 17 02/24/25 02:00 BP 108/75 02/24/25 02:00 Pulse Ox 96 02/24/25 02:00 FiO2 Intake & Output 02/23/25 02/24/25 02/24/25 18:59 06:59 18:59 Intake Total 1080 Balance 1080 Intake: Oral 1080 Other: Voiding Method Toilet Bedside Commode Bedside Commode # Voids 2 2 # Bowel Movements 2 1 - Labs CBC & Chem 7: 02/24/25 05:28 02/24/25 05:28 Labs: Abnormal Lab Results - Last 24 Hours (Table) 02/23/25 02/23/25 02/23/25 Range/Units 04:51 17:44 20:39 WBC (4.50-10.00) 10*3/uL Hgb (12.0-15.0) g/dL Hct (37.2-46.3) % RDW (11.5-14.5) % Sodium (137-145) mmol/L BUN (7-17) mg/dL Creatinine (0.52-1.04) mg/dL Glucose (74-99) mg/dL POC Glucose (mg/dL) 151 H 123 H (70-110) mg/dL Calcium (8.4-10.2) mg/dL Vitamin D 25-Hydroxy 25.8 L (30.0-100.0) ng/mL 02/24/25 02/24/25 Range/Units 05:28 05:28 WBC 4.18 L (4.50-10.00) 10*3/uL Hgb 11.9 L (12.0-15.0) g/dL Hct 35.9 L (37.2-46.3) % RDW 16.5 H (11.5-14.5) % Sodium 136 L (137-145) mmol/L BUN 5 L (7-17) mg/dL Creatinine 0.42 L (0.52-1.04) mg/dL Glucose 104 H (74-99) mg/dL POC Glucose (mg/dL) (70-110) mg/dL Calcium 8.3 L (8.4-10.2) mg/dL Vitamin D 25-Hydroxy (30.0-100.0) ng/mL Microbiology - Last 24 Hours (Table) 02/18/25 10:51 Blood Culture - Final Blood 02/22/25 18:15 CSF Gram Stain - Preliminary Cerebral Spinal Fluid CSF Culture - Preliminary 02/18/25 19:04 Stool Culture - Final Stool
[2025-02-24 10:57] LABS: VDRL, Qualitative CSF Nonreactive (Nonreactive)
[2025-02-24 12:36] LABS: Glucose,Whole Blood 92 mg/dL (70-110)
[2025-02-24 13:42] LABS: Glucose,Whole Blood 98 mg/dL (70-110)
--- NOTE | 2025-02-24 14:43 | P.DS ---
Providers Date of admission: 02/17/25 21:06 Attending physician: Chas Sherwood MD Consults: 02/18/25 03:42 Consult Physician Routine Consulting Provider: Travis Romo Consult Reason/Comments: Altered mental status Do you want consulting provider notified?: Yes Primary care physician: Nj Castañeda Hospital Course: Discharge diagnoses; #Sepsis, secondary to C. difficile colitis #Likely Wernicke's encephalopathy #Severe folic acid deficiency #Type 2 diabetes mellitus #Mild hypocalcemia, corrected calcium WNL #Hypomagnesemia, resolved #Hypokalemia, resolved #Lactic acidosis #Metabolic acidosis #Anemia #Starvation ketosis #Eot-unegjfo-kcysfzswu diabetes mellitus Hospital course; 54 year old female with past medical history of type II efy-huvstkd-icvgebxia diabetes mellitus presented to the ED with altered mental status. ED documentation reviewed that states patient's friend helps provide the history. Patient's friend states that she received a call that the patient was confused and weak. Her friend went over to the patient's house when she found out that the patient had a fall yesterday as well as the day before as well as the patient being so weak that she has not been able to get out of bed and is confused. Patient was recently admitted to the hospital here on January 24 2025 with dehydration, hyponatremia, starvation ketosis, gastroparesis resulting in constipation and drug-induced nausea and vomiting. She was discharged home on January 25 2025 with MiraLAX as well as metoclopramide. Patient was hospitalized again at [facility] until the second of this month for dehydration and gastroparesis. Patient's friend mentions that the patient has not taken any of her medications prescribed after discharge. Upon arrival she was found to be altered, with severe confusion as well as confabulation and inability to form/respond coherently to the questions being asked. During her stay she underwent a brain CT which showed no acute intracranial process. An EEG which showed background slowing suggestive of moderate encephalopathy. As well as a brain MRI which was a degraded exam secondary to her braces and motion, but with no definitive evidence of intracranial mass, acute/subacute infarct. She was seen and evaluated by neurology. He performed a lumbar puncture which was unremarkable. Extensive testing was done through her blood work which all came back to be negative except for vitamin D deficiency as well as a severe folate deficiency. After much discussion with the patient, it was discovered that she had been utilizing Mounjaro and not had much of an appetite for a prolonged period of time, leading to thought process of malnutrition may be playing some role. Additionally, on the second day of her stay her lactic acid was shown to be 3.3, IV fluids were given in the form of a bolus, and her lactic acid on recheck was elevated. This promoted the thinking of type B lactic acidosis which brought about the possibility of a thiamine deficiency and Warnicke's encephalopathy as a possible diagnosis. Empiric treatment was began with IV thiamine 500 mg 3 times daily for a total of 2 days, which was then transition to 250 mg IV thiamine once daily for total of 5 days. At that time she also underwent testing for C. difficile, which was found to be positive and she was started on oral vancomycin 4 times daily. She did show improvement once initiated on IV thiamine and with vancomycin improving her diarrhea. Discussed with her the importance of following up with her primary care physician as well as maintaining a balanced and healthy diet. Upon discharge she will have multiple scripts for vitamin supplementation as well as antibiotics to complete her course. Discussed the importance of adherence to these medications, and regular follow-up, to ensure continued improvement in something like this does not occur again. She verbalized understanding, and has very close support with her sons as well as close friends who are often at bedside. She is very excited for discharge today. Physical Exam: General: nontoxic, no distress, appears at stated age Derm: warm, dry, intact Head: atraumatic, normocephalic, symmetric Eyes: EOMI, anicteric sclera Mouth: no lip lesion, mucus membranes moist Cardiovascular: S1 S2 reg, no murmur, rubs, or gallops Lungs: CTA bilateral, no rales, no accessory muscle use Abdominal: soft, non-tender to palpataion, no appreciable organomegaly Extremities: no gross muscle atrophy, no edema, no contractures Neuro: Alert, Oriented, CNII-XII grossly intact, gait normal Psych: well appearing, appropriate affect Dictation was produced using [employer] dictation software. please excuse any grammatical, word or spelling errors. Rhett Freedman MD PGY-1 IM I saw and evaluated the patient during the walter and critical portions of this encounter, and discussed the case in detail with the resident author of this note, I agree with the Assessment and Plan, and my changes, if any, are highlighted in blue. Patient Condition at Discharge: Fair Plan - Discharge Summary Discharge Rx Participant: No New Discharge Prescriptions: New Folic Acid 1 mg PO DAILY #60 tab Multivitamins, Thera [Multivitamin (formulary)] 1 each PO DAILY #60 tab Pyridoxine [Vitamin B-6] 100 mg PO DAILY #60 tab Vancomycin HCl [Vancocin HCl] 125 mg PO QID 4 Days #18 cap Thiamine HCl [Vitamin B-1] 100 mg PO DAILY #60 tablet Continue Estriol 80%/Ggjljtoad-Kannqfzuorvk-Nncorgvrvpdi 1.25-30-0.5mg/Gm 2 pump TOPICAL DAILY Ondansetron Odt [Zofran ODT] 4 mg PO Q8HR PRN PRN Reason: Nausea And Vomiting Omeprazole 40 mg PO DAILY Magnesium Oxide [Mag-Ox] 400 mg PO DAILY Vitamin D+Vitamin K (Unknown Dose) 1 tab PO DAILY Potassium Chloride ER [K-Dur 20] 20 meq PO DAILY Famotidine/Ca Carb/Mag Hydrox [Pepcid Complete Tablet Chew] 1 tab PO BID Metoclopramide HCl [Reglan] 5 mg PO QID polyethylene glycoL 3350 [Miralax] 17 gm PO DAILY PRN PRN Reason: Constipation Discharge Medication List Estriol 80%/Ujstrggdi-Irzdiqmbynvn-Gumepqatfwfm 1.25-30-0.5mg/Gm 2 pump TOPICAL DAILY 01/24/25 [History] Famotidine/Ca Carb/Mag Hydrox [Pepcid Complete Tablet Chew] 1 tab PO BID 02/17/25 [History] Magnesium Oxide [Mag-Ox] 400 mg PO DAILY 02/17/25 [History] Metoclopramide HCl [Reglan] 5 mg PO QID 02/17/25 [History] Omeprazole 40 mg PO DAILY 02/17/25 [History] Ondansetron Odt [Zofran ODT] 4 mg PO Q8HR PRN 02/17/25 [History] Potassium Chloride ER [K-Dur 20] 20 meq PO DAILY 02/17/25 [History] Vitamin D+Vitamin K (Unknown Dose) 1 tab PO DAILY 02/17/25 [History] polyethylene glycoL 3350 [Miralax] 17 gm PO DAILY PRN 02/17/25 [History] Folic Acid 1 mg PO DAILY #60 tab 04/18/25 [Rx] Multivitamins, Thera [Multivitamin (formulary)] 1 each PO DAILY #60 tab 02/24/25 [Rx] Pyridoxine [Vitamin B-6] 100 mg PO DAILY #60 tab 02/24/25 [Rx] Thiamine HCl [Vitamin B-1] 100 mg PO DAILY #60 tablet 02/24/25 [Rx] Vancomycin HCl [Vancocin HCl] 125 mg PO QID 4 Days #18 cap 02/24/25 [Rx] Follow up Appointment(s)/Referral(s): Nj Castañeda MD [Primary Care Provider] - 1-2 days Patient Instructions/Handouts: Thiamine (By mouth), C. Diff (Clostridioides Difficile) Infection (GEN), Encephalopathy (GEN) Activity/Diet/Wound Care/Special Instructions: Please be sure to follow-up with your primary care physician within 1-3 days of discharge. Please be sure to take all medications, vitamin supplementation, antibiotics as prescribed. Discharge/Stand Alone Forms: Area PCPs Discharge Disposition: HOME SELF-CARE
[2025-02-24 14:44] LABS: IgG - CSF 2.2 mg/dL (0.0 - 3.4); IgG Synthesis Rate 1.36 mg/day (0.00 - 3.00); IgG/Albumin Index (CSF) 0.65 (0.00 - 0.77); Immunoglobulin G 563 mg/dL (700 - 1600)
[2025-02-24 19:47] LABS: Glucose,Whole Blood 144 mg/dL (70-110)
[2025-02-24] MEDS: ASCORBIC ACID 500 MG TAB PO SCH (20:59)
[2025-02-25 05:53] LABS: Glucose,Whole Blood 88 mg/dL (70-110)
[2025-02-25 07:39] LABS: Methylmalonic Acid 0.25 umol/L (<0.40)
[2025-02-25] MEDS: THIAMINE 100 MG TAB PO SCH (08:55)
--- NOTE | 2025-02-25 09:06 | P.PN ---
Subjective Progress Note Date: 02/24/25 02/24/2025: Patient was seen for a follow-up. Multiple family members were present. Patient is not significantly improving. No new worsening however. 02/23/2025: Patient was seen for a follow-up. Patient's cousin Cassandra was also present and another friend. Patient says that she is doing slightly better. Her vision has improved including diplopia. She still a little stiff. She walked with walker to the bathroom. She feels she is getting stronger. She is eating healthy and finishing her meals well. No worsening. 02/22/2025: Patient was seen for follow-up. Patient's cousin Cassandra was present by the bedside. Patient has clinically improved. She is able to talk in sentences making complete sense. I did not notice patient saying anything out of ordinary, are out of context. She is ready for lumbar puncture. The nurse has obtained consent from the patient, and patient's next of kin, that is her son and patient's cousin Cassandra. Family is considering transfer to [facility]. 02/21/2025: Patient was seen for a follow-up. Patient's family was present. She still very confused, now better as compared to yesterday. Patient states that she has significant weakness in the legs. She cannot stand on her legs. 02/20/2025: Patient was initially seen by Dr. Latham. Please refer to her note for details. Patient is a 54-year-old female came with altered mental status, found to be positive for C. difficile sepsis. Patient's multiple family members were present by the bedside. They provided with some history. Patient has significant malnutrition. Patient was found to have mild diabetes with hemoglobin A1c 6.5 in the fall of 2023. She was started on Monjaro 2.5 mg injection and she received first dose on 11/09/2024. Her appetite started decreasing. She received another dose of same medication 2.5 mg in December 2024. And then on 01/11/2025, she received 5.0 mg dose of Mounjaro. Her appetite remarkably decreased. She was diagnosed with gastroparesis on 01/24/2025, constantly throwing up, could not keep even water up. And then she developed problems with her gallbladder. She started having problems with memory, hallucinating, putting things together, and forgetful. She would not remember the doctor's. She was confusing if she was in [place]. In the last 5-7 days, patient has developed some double vision. She couldn't focus on the face with blurred vision. They state that patient is "taking memory from long time ago and making sense what's going on now". Family is strongly considering Wernicke's encephalopathy with Korsakoff syndrome. No history of alcoholism. Objective - Vital Signs Vital signs: Vital Signs Temp 98.3 F 02/24/25 08:21 Pulse 95 02/24/25 08:21 Resp 16 02/24/25 08:21 BP 109/74 02/24/25 08:21 Pulse Ox 97 02/24/25 08:21 FiO2 Intake & Output 02/23/25 02/24/25 02/24/25 18:59 06:59 18:59 Intake Total 1080 Balance 1080 Intake: Oral 1080 Other: Voiding Method Toilet Bedside Commode Toilet Bedside Commode # Voids 2 2 # Bowel Movements 2 1 - Exam Patient is alert and awake in no distress. Patient knows it is February 2025 and that she is in [facility] in [facility]. Speech and language functions appears normal. Patient can name and repeat very well. She is talking complete sense, with no tangential thoughts, although patient's family believes that she still confabulates, and reports wrong information between the statements. Cranial nerves significant for significant ophthalmoparesis, no changes compared to yesterday. Patient has decreased horizontal gaze bilaterally, right is worse than left. Her vertical gaze is relatively preserved. She does have significant nystagmus with vertical gaze. Face is symmetric. Muscle strength is normal in the arms and legs. Her hip flexion is weak on the left side about 2. Normal on the right side. No ataxia for [id number] testing. No definitive ataxia in the lower limbs bilaterally. Patient's left hip flexion appears weak, not able to lift her leg to do [id number]. With assist, she was able to minimally slide her heel on the palacios. Sensory touch is equal. Tone and bulk of muscles normal. Deep tendon reflexes are symmetric, 2+ at the biceps, 2+ brachioradialis, 0 at the knees, 0 ankles and plantars flat bilaterally. - Labs CBC & Chem 7: 02/24/25 05:28 02/24/25 05:28 Labs: Abnormal Lab Results - Last 24 Hours (Table) 02/22/25 02/23/25 02/23/25 Range/Units 18:15 17:44 20:39 WBC (4.50-10.00) 10*3/uL Hgb (12.0-15.0) g/dL Hct (37.2-46.3) % RDW (11.5-14.5) % Sodium (137-145) mmol/L BUN (7-17) mg/dL Creatinine (0.52-1.04) mg/dL Glucose (74-99) mg/dL POC Glucose (mg/dL) 151 H 123 H (70-110) mg/dL Calcium (8.4-10.2) mg/dL Serum Albumin 2,480 L (3500 - 5200) mg/dL IgG 563 L (700 - 1600) mg/dL 02/24/25 02/24/25 Range/Units 05:28 05:28 WBC 4.18 L (4.50-10.00) 10*3/uL Hgb 11.9 L (12.0-15.0) g/dL Hct 35.9 L (37.2-46.3) % RDW 16.5 H (11.5-14.5) % Sodium 136 L (137-145) mmol/L BUN 5 L (7-17) mg/dL Creatinine 0.42 L (0.52-1.04) mg/dL Glucose 104 H (74-99) mg/dL POC Glucose (mg/dL) (70-110) mg/dL Calcium 8.3 L (8.4-10.2) mg/dL Serum Albumin (3500 - 5200) mg/dL IgG (700 - 1600) mg/dL Microbiology - Last 24 Hours (Table) 02/18/25 10:51 Blood Culture - Final Blood 02/22/25 18:15 CSF Gram Stain - Preliminary Cerebral Spinal Fluid CSF Culture - Preliminary Assessment and Plan Assessment: 1. The patient is a 54-year-old female who presents to the emergency department with altered mental status. There is reported nonsensical speech with some slurring of speech, also has developed some memory disturbance. On examination, the patient has some difficulty answering questions that are asked and following some instructions. 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 Rule out Wernicke's Korsakoff syndrome. Her reflexes are absent in the lower limbs. Rule Flores Pringle variant of Guillain-White syndrome. 2. Rule out Wernicke's Korsakoff syndrome, from malnutrition 3. Elevated CRP which is suggestive of inflammation 4. History of diabetes mellitus 5. History of medication induced mental status changes 6. Diabetes 7. Lactic acidosis 8. C. difficile colitis 9. Folic acid deficiency 10. Vitamin B6 deficiency 11. Vitamin C deficiency 12. Mild vitamin D deficiency Plan: 1. Patient's ophthalmoparesis is getting better, therefore does not appear Guillain-White syndrome. Possibly related to Wernicke's Korsakoff syndrome. Patient states her muscle strength is getting better. 2. EEG was performed, which was abnormal due to background slowing of moderate degree. No focal, lateralized or epileptiform activity was seen. 3. B12 810 methylmalonic acid 0.25 which is normal and ammonia < 9. Vitamin B6 < 2, folic acid < 2.0. Vitamin B12 810, vitamin D 25.8 TSH 1.15. Vitamin C 2 (2-19), copper 1006 normal. Await vitamin A and zinc. 4. Await vitamin B1 level. Patient on high dose thiamine 250 mg IV PB daily. I called [facility], and they mentioned the results will be coming either on Thursday, or no later than Thursday. 5. RPR negative, hepatitis panel negative, HIV negative, influenza, RSV and coronal virus PCR negative. Urine drug screen negative. Blood alcohol level normal. Hemoglobin A1c 5.7. 6. Folate < 2.0. Patient on folate replacement. 7. MRI of the brain was limited because of patient's braces and motion degraded examination. No definitive evidence of intracranial mass, acute/subacute in farct. No abnormal enhancement within limitations. I personally reviewed MRI, agree with the findings. 8. CSF showed WBC 2, RBC 1, CSF glucose 74, CSF total protein 43(12-60). Comprehensive viral panel negative. MS panel negative. IgG synthesis rate 1.36, IgG index 0.65 and oligoclonal bands were present in the CSF, but the corresponding serum contains the same oligoclonal bands, this does not indicate CSF specific oligoclonal banding and is considered a negative study. CSF VDRL negative. CSF angiotensin converting enzyme <5, which is normal. 9. Discussed with family members in detail. If the vitamin B1 level is normal, we will consider treatment with IVIG.
[2025-02-25 12:54] LABS: Glucose,Whole Blood 122 mg/dL (70-110)
--- NOTE | 2025-02-25 13:10 | P.PN ---
Subjective Progress Note Date: 02/25/25 Patient is a 54 year old female with past medical history of type II ite-ttjbzbs-nrpvswnbd diabetes mellitus presented to the ED with altered mental status. ED documentation reviewed that states patient's friend helps provide the history. Patient's friend states that she received a call that the patient was confused and weak. Her friend went over to the patient's house when she found out that the patient had a fall yesterday as well as the day before as well as the patient being so weak that she has not been able to get out of bed and is confused. Patient was recently admitted to the hospital here on January 24 2025 with dehydration, hyponatremia, starvation ketosis, gastroparesis resulting in constipation and drug-induced nausea and vomiting. She was discharged home on January 25 2025 with MiraLAX as well as metoclopramide. Patient was hospitalized again at [facility] until the second of this month for dehydration and gastroparesis. Patient's friend mentions that the patient has not taken any of her medications prescribed after discharge. Patient is alert and oriented to time place and person but upon asking why is she in the hospital she keeps mentioning about low blood sugar and low A1c. No family present at bedside at the time of this interview. Upon calling the her son Francis, he mentioned that the patient started acting delusional today all of a sudden. She was well up until then. She was imagining things that weren't there. Aparently the patient just called her son 10 minutes ago to warn him about weird people out there. Patient's son is not aware if patient is on any diabetes medication, but he does mention that the patient hasn't had a glucose monitor in a while. Patient's son mentions that she was on Wegovy for a month and experienced 15-20 pounds weight loss, but she became hypoglycemic and had to be admitted to [facility]. Patient has been of Wegovy since 2 weeks now. Denies fever, chills, shortness of breath, cough, chest pain, palpitations, abdominal pain, nausea, vomiting, hematuria, dysuria, hematochezia, melena, headache, slurred speech, numbness, tingling, dizziness, lightheadedness, blurred vision, double vision. ED documentation reviewed. In the ED patient was treated with 1 L bolus of normal saline, 0.9 normal saline at 150 mL/h, ondansetron. 02/18 - She is seen and examined at bedside this morning, now on the 6th floor. She had no acute events overnight, and has no acute complaints morning. She remains confused, and unable to speak clearly conversation. She is able to formulate sentences without issue, however her responses are not always appropriate to the question being asked and do not always make sense. She continually talks about her being hypoglycemic, despite reassurances that she is not. 02/19 - Patient seen and examined at bedside. No acute events overnight. Mentation improved. Still having diarrhea. Had total of 3 bowel movements since midnight. 02/20 - She is seen and examined at bedside this morning. No acute events overnight. mentation seemingly improved, however remains confused. Diarrhea continues, however endorses only 1 episode overnight. 02/21 - She is seen and examined at bedside this morning. No acute events overnight. Mentation, same as she was yesterday. Able to say where she is, month, the date, her birthday however does not appear to have understanding as to why she is remaining in the hospital. Continues to have regular bouts of diarrhea, however friends/family know that it has been significantly improving from where it was. 02/22 - She is seen and examined at bedside this morning. No acute events overnight. As per neurology, plan is for lumbar puncture to be completed today. According to her cousin, who is accompanying her at bedside today, she notes that the biggest improvement is that she is aware that she is confused, which had previously not been the case, however other than that she does not feel as though the improvements have been started. 02/23 - She is seen and examined at bedside this morning. No acute events overnight and no acute complaints this morning. Mentation showing some signs of improvement, able to carry a fully coherent conversation with his morning. Best friend at bedside, notes she feels as though improvements are made, however not back to her usual baseline. 02/24 - She is seen and examined at bedside this morning. No acute events overnight no acute events morning. States she will be receiving last dose (03/13) of 200 mg IV thiamine. Additionally, discussed with the patient and her family/friends the desire to possibly be discharged to subacute rehab to further improve her strength and ability to function closer to her baseline. Discussed with case management, options will be discussed with the patient and her family, with likely discharge to occur tomorrow. Possibility of home with home care is most likely option at this point. 02/25 - She is seen and examined at bedside this morning. No acute events overnight, no acute concerns this morning. Labs are to be discharged yesterday, however friends were at bedside expressed their concerns with the possible discharge with home care services being set up and would like to speak to case management. As result of this, discharge was delayed. Discussed further with neurology, who recommended the possibility of starting her on IVIG, will be dete rmined if that would be beneficial. Additionally, discussed with case management setting up home care prior to discharge. REVIEW OF SYSTEMS: Pertinent positives and negatives noted in HPI. Physical Exam: General: nontoxic, no distress, appears at stated age Derm: warm, dry, intact Head: atraumatic, normocephalic, symmetric Eyes: EOMI, anicteric sclera Mouth: no lip lesion, mucus membranes moist Cardiovascular: S1 S2 reg, no murmur, rubs, or gallops Lungs: CTA bilateral, no rales, no accessory muscle use Abdominal: soft, non-tender to palpataion, no appreciable organomegaly Extremities: no gross muscle atrophy, no edema, no contractures Neuro: Alert, Oriented, CNII-XII grossly intact, gait normal Psych: well appearing, appropriate affect Data Received Today: Labs: Imagining: No new imaging today Assessment and plan Patient is a 54 year old female with past medical history of type II ibv-mghnryb-wgimwowlm diabetes mellitus presented to the ED with altered mental status. #Sepsis, secondary to C. difficile colitis #Likely Wernicke's encephalopathy #Severe folic acid deficiency -Continuing with oral vancomycin 125 mg 4 times daily -Continuing on folic acid 1 mg daily, theragran multivitamin daily -Completed course of IV thiamine; will begin at 100 mg daily thiamine p.o., which is a maintenance dose -Neurology following; recommending possibility of starting the patient on IVIG -Thiamine levels pending -Continue with NS 100 cc/h -Seizure precautions -Physical therapy and occupational therapy following #Type 2 diabetes mellitus -Sliding scale insulin -Monitor for hypoglycemia #Mild hypocalcemia, corrected calcium WNL -Calcium this morning -Continue to monitor BMP #Hypomagnesemia, resolved -Magnesium this morning -Continue to monitor magnesium levels #Hypokalemia, resolved -Potassium this morning -Continue to monitor potassium Resolved: #Lactic acidosis #Metabolic acidosis #Anemia #Starvation ketosis Chronic: #Xlf-kzeckcg-awzbwpjfw diabetes mellitus #Gastroparesis -Insulin sliding scale -POC glucose checks 2 hourly DVT ppx: Heparin 5000 units SQ every 12 hours GI PPx: Protonix 40 mg daily Code status: Full code F: NS 100 cc/h E: Replete as needed N: Consistent carbohydrate diet A: Ambulatory Anticipated discharge place: Home with home care Anticipated discharge time: Will be stable for discharge today following planning course, will discuss with case management time Dictation was produced using [employer] dictation software. please excuse any grammatical, word or spelling errors. Rhett Freedman MD PGY-1 IM I saw and evaluated the patient during the walter and critical portions of this encounter, and discussed the case in detail with the resident author of this note, I agree with the Assessment and Plan, and my changes, if any, are highlighted in blue. Objective - Vital Signs Vital signs: Vital Signs Temp 98.3 F 02/25/25 07:13 Pulse 108 H 02/25/25 07:13 Resp 18 02/25/25 07:13 BP 97/68 02/25/25 07:13 Pulse Ox 96 02/25/25 07:13 FiO2 Intake & Output 02/24/25 02/25/25 02/25/25 18:59 06:59 18:59 Intake Total 118 Balance 118 Intake: Oral 118 Other: Voiding Method Toilet Toilet # Voids 4 3 - Labs CBC & Chem 7: 02/24/25 05:28 02/24/25 05:28 Labs: Abnormal Lab Results - Last 24 Hours (Table) 02/22/25 02/24/25 Range/Units 18:15 19:45 POC Glucose (mg/dL) 144 H (70-110) mg/dL Serum Albumin 2,480 L (3500 - 5200) mg/dL IgG 563 L (700 - 1600) mg/dL Microbiology - Last 24 Hours (Table) 02/22/25 18:15 CSF Gram Stain - Preliminary Cerebral Spinal Fluid CSF Culture - Preliminary
[2025-02-25 17:33] LABS: Glucose,Whole Blood 107 mg/dL (70-110)
[2025-02-25 20:29] LABS: Glucose,Whole Blood 93 mg/dL (70-110)
[2025-02-26 04:27] LABS: Basophils # (A) 0.01 10*3/uL (0.00-0.10); Basophils % (A) 0.3 %; Eosinophils # (A) 0.01 10*3/uL (0.04-0.35); Eosinophils % (A) 0.3 %; HCT 34.8 % (37.2-46.3); HGB 11.5 g/dL (12.0-15.0); Lymphocytes # (A) 0.93 10*3/uL (0.90-5.00); Lymphocytes % (A) 24.4 %; MCH 27.9 pg (27.0-32.0); MCV 84.5 fL (80.0-97.0); Mean Platelet Volume 9.9 fL (9.5-12.2); Monocytes # (A) 0.32 10*3/uL (0.20-1.00); Monocytes % (A) 8.4 %; Neutrophils # (A) 2.47 10*3/uL (1.80-7.70); Neutrophils % (A) 64.8 %; Platelet Count 300 10*3/uL (140-440); RBC 4.12 10*6/uL (4.10-5.20); RDW 16.9 % (11.5-14.5); WBC 3.81 10*3/uL (4.50-10.00)
[2025-02-26 04:38] LABS: African American GFR (CKD) >90 (>60 ml/min/1.73 sqM); Anion Gap 4 mmol/L; Blood Urea Nitrogen 7 mg/dL (7-17); Calcium 8.6 mg/dL (8.4-10.2); Carbon Dioxide 27 mmol/L (22-30); Chloride 105 mmol/L (98-107); Glucose 93 mg/dL (74-99); Magnesium 1.8 mg/dL (1.6-2.3); Non-African American GFR(CKD) >90 (>60 ml/min/1.73 sqM); Potassium 3.7 mmol/L (3.5-5.1); Sodium 136 mmol/L (137-145)
[2025-02-26 05:45] LABS: Glucose,Whole Blood 95 mg/dL (70-110)
--- NOTE | 2025-02-26 07:56 | P.PN ---
Subjective Progress Note Date: 02/25/25 02/25/2025: Patient was seen for follow-up. Patient states she is feeling better. She walked down the fowler with her walker, did not fall. Denies any new worsening. 02/24/2025: Patient was seen for a follow-up. Multiple family members were present. Patient is not significantly improving. No new worsening however. 02/23/2025: Patient was seen for a follow-up. Patient's cousin Cassandra was also present and another friend. Patient says that she is doing slightly better. Her vision has improved including diplopia. She still a little stiff. She walked with walker to the bathroom. She feels she is getting stronger. She is eating healthy and finishing her meals well. No worsening. 02/22/2025: Patient was seen for follow-up. Patient's cousin Cassandra was present by the bedside. Patient has clinically improved. She is able to talk in sentences making complete sense. I did not notice patient saying anything out of ordinary, are out of context. She is ready for lumbar puncture. The nurse has obtained consent from the patient, and patient's next of kin, that is her son and patient's cousin Cassandra. Family is considering transfer to [facility]. 02/21/2025: Patient was seen for a follow-up. Patient's family was present. She still very confused, now better as compared to yesterday. Patient states that she has significant weakness in the legs. She cannot stand on her legs. 02/20/2025: Patient was initially seen by Dr. Latham. Please refer to her note for details. Patient is a 54-year-old female came with altered mental status, found to be positive for C. difficile sepsis. Patient's multiple family members were present by the bedside. They provided with some history. Patient has significant malnutrition. Patient was found to have mild diabetes with hemoglobin A1c 6.5 in the fall of 2023. She was started on Monjaro 2.5 mg injection and she received first dose on 11/09/2024. Her appetite started decreasing. She received another dose of same medication 2.5 mg in December 2024. And then on 01/11/2025, she received 5.0 mg dose of Mounjaro. Her appetite remarkably decreased. She was diagnosed with gastroparesis on 01/24/2025, constantly throwing up, could not keep even water up. And then she developed problems with her gallbladder. She started having problems with memory, hallucinating, putting things together, and forgetful. She would not remember the doctor's. She was confusing if she was in [place]. In the last 5-7 days, patient has developed some double vision. She couldn't focus on the face with blurred vision. They state that patient is "taking memory from long time ago and making sense what's going on now". Family is strongly considering Wernicke's encephalopathy with Korsakoff syndrome. No history of alcoholism. Objective - Vital Signs Vital signs: Vital Signs Temp 98.3 F 02/25/25 07:13 Pulse 108 H 02/25/25 07:13 Resp 18 02/25/25 07:13 BP 97/68 02/25/25 07:13 Pulse Ox 96 02/25/25 07:13 FiO2 Intake & Output 02/24/25 02/25/25 02/25/25 18:59 06:59 18:59 Intake Total 118 60 Balance 118 60 Intake: Oral 118 60 Other: Voiding Method Toilet Toilet Toilet # Voids 4 3 1 # Bowel Movements 1 - Exam Patient is alert and awake in no distress. Patient knows it is February 2025 and that she is in [facility] in [facility]. Speech and language functions appears normal. Patient can name and repeat very well. She is talking complete sense, with no tangential thoughts, although patient's family believes that she still confabulates, and reports wrong information between the statements. Cranial nerves significant for significant ophthalmoparesis, no changes compared to yesterday. Patient has decreased horizontal gaze bilaterally, right is worse than left. Her vertical gaze is relatively preserved. She does have significant nystagmus with vertical gaze. Face is symmetric. Muscle strength is normal in the arms and legs. Her hip flexion is weak on the left side about 2. Normal on the right side. No ataxia for [id number] testing. No definitive ataxia in the lower limbs bilaterally. Patient's left hip flexion appears weak, not able to lift her leg to do [id number]. With assist, she was able to minimally slide her heel on the palacios. Sensory touch is equal. Tone and bulk of muscles normal. Deep tendon reflexes are symmetric, 2+ at the biceps, 2+ brachioradialis, 0 at the knees, 0 ankles and plantars flat bilaterally. - Labs CBC & Chem 7: 02/26/25 04:04 02/26/25 04:04 Labs: Abnormal Lab Results - Last 24 Hours (Table) 02/24/25 02/25/25 Range/Units 19:45 12:53 POC Glucose (mg/dL) 144 H 122 H (70-110) mg/dL Microbiology - Last 24 Hours (Table) 02/22/25 18:15 CSF Gram Stain - Preliminary Cerebral Spinal Fluid CSF Culture - Preliminary Assessment and Plan Assessment: 1. The patient is a 54-year-old female who presents to the emergency department with altered mental status. There is reported nonsensical speech with some slurring of speech, also has developed some memory disturbance. On examination, the patient has some difficulty answering questions that are asked and following some instructions. 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 Rule out Wernicke's Korsakoff syndrome. Her reflexes are absent in the lower limbs. Rule Flores Pringle variant of Guillain-White syndrome. 2. Rule out Wernicke's Korsakoff syndrome, from malnutrition 3. Elevated CRP which is suggestive of inflammation 4. History of diabetes mellitus 5. History of medication induced mental status changes 6. Diabetes 7. Lactic acidosis 8. C. difficile colitis 9. Folic acid deficiency 10. Vitamin B6 deficiency 11. Vitamin C deficiency 12. Mild vitamin D deficiency Plan: 1. Patient's ophthalmoparesis has improved, but not resolved. Possibly related to Wernicke's Korsakoff syndrome. Patient states her muscle strength is getting better. 2. EEG was performed, which was abnormal due to background slowing of moderate degree. No focal, lateralized or epileptiform activity was seen. 3. B12 810 methylmalonic acid 0.25 which is normal and ammonia < 9. Vitamin B6 < 2, folic acid < 2.0. Vitamin B12 810, vitamin D 25.8 TSH 1.15. Vitamin C 2 (2-19), copper 1006 normal. Await vitamin A and zinc. We will check GQ 1B antibodies 4. Await vitamin B1 level. Patient on high dose thiamine 250 mg IV PB daily. I called [facility], and they mentioned the results will be coming either on Thursday, or no later than Thursday. 5. RPR negative, hepatitis panel negative, HIV negative, influenza, RSV and zuluaga virus PCR negative. Urine drug screen negative. Blood alcohol level normal. Hemoglobin A1c 5.7. 6. Folate < 2.0. Patient on folate, vitamin C and B6 replacement. 7. MRI of the brain was limited because of patient's braces and motion degraded examination. No definitive evidence of intracranial mass, acute/subacute infarct. No abnormal enhancement within limitations. I personally reviewed MRI, agree with the findings. 8. CSF showed WBC 2, RBC 1, CSF glucose 74, CSF total protein 43(12-60). Comprehensive viral panel negative. MS panel negative. IgG synthesis rate 1.36, IgG index 0.65 and oligoclonal bands were present in the CSF, but the corresponding serum contains the same oligoclonal bands, this does not indicate CSF specific oligoclonal banding and is considered a negative study. CSF VDRL negative. CSF angiotensin converting enzyme <5, which is normal. 9. Discussed with family members in detail. If the vitamin B1 level is normal, we will consider treatment with IVIG. 10. Dr. Travis Romo to resume neurology service for Thursday morning.
[2025-02-26 12:51] LABS: Glucose,Whole Blood 107 mg/dL (70-110)
--- NOTE | 2025-02-26 14:31 | P.PN ---
Subjective Progress Note Date: 02/26/25 Patient is a 54 year old female with past medical history of type II gbm-lbmsfcc-trcfndeop diabetes mellitus presented to the ED with altered mental status. ED documentation reviewed that states patient's friend helps provide the history. Patient's friend states that she received a call that the patient was confused and weak. Her friend went over to the patient's house when she found out that the patient had a fall yesterday as well as the day before as well as the patient being so weak that she has not been able to get out of bed and is confused. Patient was recently admitted to the hospital here on January 24 2025 with dehydration, hyponatremia, starvation ketosis, gastroparesis resulting in constipation and drug-induced nausea and vomiting. She was discharged home on January 25 2025 with MiraLAX as well as metoclopramide. Patient was hospitalized again at [facility] until the second of this month for dehydration and gastroparesis. Patient's friend mentions that the patient has not taken any of her medications prescribed after discharge. Patient is alert and oriented to time place and person but upon asking why is she in the hospital she keeps mentioning about low blood sugar and low A1c. No family present at bedside at the time of this interview. Upon calling the her son Francis, he mentioned that the patient started acting delusional today all of a sudden. She was well up until then. She was imagining things that weren't there. Aparently the patient just called her son 10 minutes ago to warn him about weird people out there. Patient's son is not aware if patient is on any diabetes medication, but he does mention that the patient hasn't had a glucose monitor in a while. Patient's son mentions that she was on Wegovy for a month and experienced 15-20 pounds weight loss, but she became hypoglycemic and had to be admitted to [facility]. Patient has been of Wegovy since 2 weeks now. Denies fever, chills, shortness of breath, cough, chest pain, palpitations, abdominal pain, nausea, vomiting, hematuria, dysuria, hematochezia, melena, headache, slurred speech, numbness, tingling, dizziness, lightheadedness, blurred vision, double vision. ED documentation reviewed. In the ED patient was treated with 1 L bolus of normal saline, 0.9 normal saline at 150 mL/h, ondansetron. 02/18 - She is seen and examined at bedside this morning, now on the 6th floor. She had no acute events overnight, and has no acute complaints morning. She remains confused, and unable to speak clearly conversation. She is able to formulate sentences without issue, however her responses are not always appropriate to the question being asked and do not always make sense. She continually talks about her being hypoglycemic, despite reassurances that she is not. 02/19 - Patient seen and examined at bedside. No acute events overnight. Mentation improved. Still having diarrhea. Had total of 3 bowel movements since midnight. 02/20 - She is seen and examined at bedside this morning. No acute events overnight. mentation seemingly improved, however remains confused. Diarrhea continues, however endorses only 1 episode overnight. 02/21 - She is seen and examined at bedside this morning. No acute events overnight. Mentation, same as she was yesterday. Able to say where she is, month, the date, her birthday however does not appear to have understanding as to why she is remaining in the hospital. Continues to have regular bouts of diarrhea, however friends/family know that it has been significantly improving from where it was. 02/22 - She is seen and examined at bedside this morning. No acute events overnight. As per neurology, plan is for lumbar puncture to be completed today. According to her cousin, who is accompanying her at bedside today, she notes that the biggest improvement is that she is aware that she is confused, which had previously not been the case, however other than that she does not feel as though the improvements have been started. 02/23 - She is seen and examined at bedside this morning. No acute events overnight and no acute complaints this morning. Mentation showing some signs of improvement, able to carry a fully coherent conversation with his morning. Best friend at bedside, notes she feels as though improvements are made, however not back to her usual baseline. 02/24 - She is seen and examined at bedside this morning. No acute events overnight no acute events morning. States she will be receiving last dose (03/13) of 200 mg IV thiamine. Additionally, discussed with the patient and her family/friends the desire to possibly be discharged to subacute rehab to further improve her strength and ability to function closer to her baseline. Discussed with case management, options will be discussed with the patient and her family, with likely discharge to occur tomorrow. Possibility of home with home care is most likely option at this point. 02/25 - She is seen and examined at bedside this morning. No acute events overnight, no acute concerns this morning. Labs are to be discharged yesterday, however friends were at bedside expressed their concerns with the possible discharge with home care services being set up and would like to speak to case management. As result of this, discharge was delayed. Discussed further with neurology, who recommended the possibility of starting her on IVIG, will be dete rmined if that would be beneficial. Additionally, discussed with case management setting up home care prior to discharge. 02/26 - Pt with no new ocmplaint today. Discussed with neurology at bedside, and opting for 4 day course of IVIG for possibility of Guilllan-Canton. This will begin today REVIEW OF SYSTEMS: Pertinent positives and negatives noted in HPI. Physical Exam: General: nontoxic, no distress, appears at stated age Derm: warm, dry, intact Head: atraumatic, normocephalic, symmetric Eyes: EOMI, anicteric sclera Mouth: no lip lesion, mucus membranes moist Cardiovascular: S1 S2 reg, no murmur, rubs, or gallops Lungs: CTA bilateral, no rales, no accessory muscle use Abdominal: soft, non-tender to palpataion, no appreciable organomegaly Extremities: no gross muscle atrophy, no edema, no contractures Neuro: Alert, Oriented, CNII-XII grossly intact, gait normal Psych: well appearing, appropriate affect Data Received Today: Labs: Imagining: No new imaging today Assessment and plan Patient is a 54 year old female with past medical history of type II ulr-fzedtsi-pqbbrtmws diabetes mellitus presented to the ED with altered mental status. #Sepsis, secondary to C. difficile colitis #Wernicke's encephalopathy vs Guillan-Canton #Severe folic acid deficiency -Continuing with oral vancomycin 125 mg 4 times daily -Continuing on folic acid 1 mg daily, theragran multivitamin daily -Completed course of IV thiamine; will begin at 100 mg daily thiamine p.o., which is a maintenance dose -Neurology following; recommending possibility of starting the patient on IVIG for Guillan-Canton, starting 02/26 -Thiamine levels pending -Continue with NS 100 cc/h -Seizure precautions -Physical therapy and occupational therapy following #Type 2 diabetes mellitus -Sliding scale insulin -Monitor for hypoglycemia #Mild hypocalcemia, corrected calcium WNL -Calcium this morning -Continue to monitor BMP #Hypomagnesemia, resolved -Magnesium this morning -Continue to monitor magnesium levels #Hypokalemia, resolved -Potassium this morning -Continue to monitor potassium Resolved: #Lactic acidosis #Metabolic acidosis #Anemia #Starvation ketosis Chronic: #Bjr-irdrwbm-xpzakzios diabetes mellitus #Gastroparesis -Insulin sliding scale -POC glucose checks 2 hourly DVT ppx: Heparin 5000 units SQ every 12 hours GI PPx: Protonix 40 mg daily Code status: Full code F: NS 100 cc/h E: Replete as needed N: Consistent carbohydrate diet A: Ambulatory Anticipated discharge place: Home with home care Anticipated discharge time: Will be stable for discharge today following jaime crockett course, will discuss with case management time Dictation was produced using [employer] dictation software. please excuse any grammatical, word or spelling errors. Objective - Vital Signs Vital signs: Vital Signs Temp 97.3 F L 02/26/25 08:00 Pulse 102 H 02/26/25 08:00 Resp 18 02/26/25 08:00 BP 100/58 02/26/25 08:00 Pulse Ox 95 02/26/25 08:00 FiO2 Intake & Output 02/25/25 02/26/25 02/26/25 18:59 06:59 18:59 Intake Total 160 Balance 160 Intake: Oral 160 Other: Voiding Method Toilet Toilet Toilet # Voids 1 3 # Bowel Movements 1 - Labs CBC & Chem 7: 02/26/25 04:04 02/26/25 04:04 Labs: Abnormal Lab Results - Last 24 Hours (Table) 02/26/25 02/26/25 Range/Units 04:04 04:04 WBC 3.81 L (4.50-10.00) 10*3/uL Hgb 11.5 L (12.0-15.0) g/dL Hct 34.8 L (37.2-46.3) % RDW 16.9 H (11.5-14.5) % Immature Gran # 0.07 H (0.00-0.04) 10*3/uL Eosinophils # 0.01 L (0.04-0.35) 10*3/uL Sodium 136 L (137-145) mmol/L Creatinine 0.47 L (0.52-1.04) mg/dL Microbiology - Last 24 Hours (Table) 02/22/25 18:15 CSF Gram Stain - Preliminary Cerebral Spinal Fluid CSF Culture - Preliminary
--- NOTE | 2025-02-26 15:56 | P.PN ---
Subjective Progress Note Date: 02/26/25 02/26/2025: Patient was seen for a follow-up. Patient sitting in the recliner. States feels generalized weak. No new concerns. 02/25/2025: Patient was seen for follow-up. Patient states she is feeling better. She walked down the fowler with her walker, did not fall. Denies any new worsening. 02/24/2025: Patient was seen for a follow-up. Multiple family members were present. Patient is not significantly improving. No new worsening however. 02/23/2025: Patient was seen for a follow-up. Patient's cousin Cassandra was also present and another friend. Patient says that she is doing slightly better. Her vision has improved including diplopia. She still a little stiff. She walked with walker to the bathroom. She feels she is getting stronger. She is eating healthy and finishing her meals well. No worsening. 02/22/2025: Patient was seen for follow-up. Patient's cousin Cassandra was present by the bedside. Patient has clinically improved. She is able to talk in sentences making complete sense. I did not notice patient saying anything out of ordinary, are out of context. She is ready for lumbar puncture. The nurse has obtained consent from the patient, and patient's next of kin, that is her son and patient's cousin Cassandra. Family is considering transfer to [facility]. 02/21/2025: Patient was seen for a follow-up. Patient's family was present. She still very confused, now better as compared to yesterday. Patient states that she has significant weakness in the legs. She cannot stand on her legs. 02/20/2025: Patient was initially seen by Dr. Latham. Please refer to her note for details. Patient is a 54-year-old female came with altered mental status, found to be positive for C. difficile sepsis. Patient's multiple family members were present by the bedside. They provided with some history. Patient has significant malnutrition. Patient was found to have mild diabetes with hemoglobin A1c 6.5 in the fall of 2023. She was started on Monjaro 2.5 mg injection and she received first dose on 11/09/2024. Her appetite started decreasing. She received another dose of same medication 2.5 mg in December 2024. And then on 01/11/2025, she received 5.0 mg dose of Mounjaro. Her appetite remarkably decreased. She was diagnosed with gastroparesis on 01/24/2025, constantly throwing up, could not keep even water up. And then she developed problems with her gallbladder. She started having problems with memory, hallucinating, putting things together, and forgetful. She would not remember the doctor's. She was confusing if she was in [place]. In the last 5-7 days, patient has developed some double vision. She couldn't focus on the face with blurred vision. They state that patient is "taking m kaylie from long time ago and making sense what's going on now". Family is strongly considering Wernicke's encephalopathy with Korsakoff syndrome. No history of alcoholism. Objective - Vital Signs Vital signs: Vital Signs Temp 97.3 F L 02/26/25 08:00 Pulse 102 H 02/26/25 08:00 Resp 18 02/26/25 08:00 BP 100/58 02/26/25 08:00 Pulse Ox 95 02/26/25 08:00 FiO2 Intake & Output 02/25/25 02/26/25 02/26/25 18:59 06:59 18:59 Intake Total 160 Balance 160 Intake: Oral 160 Other: Voiding Method Toilet Toilet Toilet # Voids 1 3 # Bowel Movements 1 - Exam Patient is alert and awake in no distress. Patient knows it is February 2025 and that she is in [facility] in [facility]. Speech and language functions appears normal. Patient can name and repeat very well. She is talking complete sense, with no tangential thoughts, although patient's family believes that she still confabulates, and reports wrong information between the statements. Cranial nerves significant for significant ophthalmoparesis, no changes compared to yesterday. Patient has decreased horizontal gaze bilaterally, right is worse than left. Her vertical gaze is relatively preserved. She does have significant nystagmus with vertical gaze. Face is symmetric. Muscle strength is normal in the arms and legs. Her hip flexion is weak on the left side about 2. Normal on the right side. No ataxia for mzhroi-he-fytl testing. No defi nitive ataxia in the lower limbs bilaterally. Patient's left hip flexion appears weak, not able to lift her leg to do [id number]. With assist, she was able to minimally slide her heel on the palacios. Sensory touch is equal. Tone and bulk of muscles normal. Deep tendon reflexes are symmetric, 2+ at the biceps, 2+ brachioradialis, 0 at the knees, 0 ankles and plantars flat bilaterally. - Labs CBC & Chem 7: 02/26/25 04:04 02/26/25 04:04 Labs: Abnormal Lab Results - Last 24 Hours (Table) 02/26/25 02/26/25 Range/Units 04:04 04:04 WBC 3.81 L (4.50-10.00) 10*3/uL Hgb 11.5 L (12.0-15.0) g/dL Hct 34.8 L (37.2-46.3) % RDW 16.9 H (11.5-14.5) % Immature Gran # 0.07 H (0.00-0.04) 10*3/uL Eosinophils # 0.01 L (0.04-0.35) 10*3/uL Sodium 136 L (137-145) mmol/L Creatinine 0.47 L (0.52-1.04) mg/dL Microbiology - Last 24 Hours (Table) 02/22/25 18:15 CSF Gram Stain - Preliminary Cerebral Spinal Fluid CSF Culture - Preliminary Assessment and Plan Assessment: 1. The patient is a 54-year-old female who presents to the emergency department with altered mental status, likely due to metabolic encephalopathy. There is reported nonsensical speech with some slurring of speech, also has developed some memory disturbance. On examination, the patient has some difficulty answering questions that are asked and following some instructions. 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 Rule out Wernicke's Korsakoff s yndrome. Her reflexes are absent in the lower limbs. Rule Flores Pringle variant of Guillain-White syndrome. 2. Rule out Wernicke's Korsakoff syndrome, from malnutrition 3. Elevated CRP which is suggestive of inflammation 4. History of diabetes mellitus 5. History of medication induced mental status changes 6. Diabetes 7. Lactic acidosis 8. C. difficile colitis 9. Folic acid deficiency 10. Vitamin B6 deficiency 11. Vitamin C deficiency 12. Mild vitamin D deficiency Plan: 1. Patient's ophthalmoparesis has improved, but not resolved. Possibly related to Wernicke's Korsakoff syndrome versus Flores Pringle variant of Guillain-White syndrome. Patient states her muscle strength is getting better, but today feels weaker. 2. EEG was performed, which was abnormal due to background slowing of moderate degree. No focal, lateralized or epileptiform activity was seen. 3. B12 810 methylmalonic acid 0.25 which is normal and ammonia < 9. Vitamin B6 < 2, folic acid < 2.0. Vitamin B12 810, vitamin D 25.8 TSH 1.15. Vitamin C 2 (2-19), copper 1006 normal. Await vitamin A and zinc. We will check GQ 1B antibodies 4. Await vitamin B1 level. Patient on high dose thiamine 250 mg IV PB daily. I called [facility], and they mentioned the results will be coming either on Thursday, or no later than Thursday. 5. RPR negative, hepatitis panel negative, HIV negative, influenza, RSV and zuluaga virus PCR negative. Urine drug screen negative. Blood alcohol level normal. Hemoglobin A1c 5.7. 6. Folate < 2.0. Patient on folate, vitamin C and B6 replacement. 7. MRI of the brain was limited because of patient's braces and motion degraded examination. No definitive evidence of intracranial mass, acute/subacute infarct. No abnormal enhancement within limitations. I personally reviewed MRI, agree with the findings. 8. CSF showed WBC 2, RBC 1, CSF glucose 74, CSF total protein 43(12-60). Comprehensive viral panel negative. MS panel negative. IgG synthesis rate 1.36, IgG index 0.65 and oligoclonal bands were present in the CSF, but the corresponding serum contains the same oligoclonal bands, this does not indicate CSF specific oligoclonal banding and is considered a negative study. CSF VDRL negative. CSF angiotensin converting enzyme <5, which is normal. 9. Discussed with family members in detail. Doubt all her symptoms are related to vitamin B1 deficiency. Never seen like that. 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 We will empirically start IVIG 0.5 g/kg daily for 4 days. Discussed with patient, who agreed, and also discussed with primary physician. 10. Dr. Travis Romo to resume neurology service for Thursday morning.
[2025-02-26] MEDS: IMMUNE GLOBULIN (GAMMAGARD) 30 GM in EMPTY BAG 1 BAG IV ONE (16:39)
[2025-02-26 17:36] LABS: Glucose,Whole Blood 189 mg/dL (70-110)
[2025-02-26 19:54] LABS: Glucose,Whole Blood 124 mg/dL (70-110)
[2025-02-27 05:55] LABS: Glucose,Whole Blood 101 mg/dL (70-110)
[2025-02-27 09:10] LABS: Basophils # (A) 0.01 X 10*3/uL (0.00-0.10); Basophils % (A) 0.3 %; Eosinophils # (A) 0.02 X 10*3/uL (0.04-0.35); Eosinophils % (A) 0.5 %; HCT 34.9 % (37.2-46.3); HGB 11.2 g/dL (12.0-15.0); Lymphocytes # (A) 1.23 X 10*3/uL (0.90-5.00); Lymphocytes % (A) 31.7 %; MCH 27.7 pg (27.0-32.0); MCHC 32.1 g/dL (32.0-37.0); MCV 86.4 FL (80.0-97.0); Mean Platelet Volume 10.3 FL (9.5-12.2); Monocytes # (A) 0.22 X 10*3/uL (0.20-1.00); Monocytes % (A) 5.7 %; NRBC Per 100 WBC 0 X 10*3/uL (0.00-0.01); Neutrophils # (A) 2.37 X 10*3/uL (1.80-7.70); Platelet Count 290 X 10*3/uL (140-440); RBC 4.04 X 10*6/uL (4.10-5.20); RDW 17.1 % (11.5-14.5); WBC 3.88 X 10*3/uL (4.50-10.00)
[2025-02-27 09:16] LABS: Blood Urea Nitrogen 11.4 mg/dL (9.0-27.0); Calcium 8.1 mg/dL (8.7-10.3); Carbon Dioxide 25.3 mmol/L (21.6-31.8); Chloride 104 mmol/L (96-109); Glucose 102 mg/dL (70-110); Magnesium 1.8 mg/dL (1.5-2.4); Potassium 4.1 mmol/L (3.5-5.5); Sodium 138 mmol/L (135-145)
[2025-02-27 12:10] LABS: Glucose,Whole Blood 107 mg/dL (70-110)
--- NOTE | 2025-02-27 14:45 | P.PCN ---
Date of Procedure: 02/22/25 Preoperative Diagnosis: Altered mental status, rule out encephalitis, rule out Guillain-White syndrome Postoperative Diagnosis: Altered mental status, rule out encephalitis, rule out Guillain-White syndrome Procedure(s) Performed: Lumbar puncture Anesthesia: local Surgeon: Stefan Mace Estimated Blood Loss (ml): 1 Pathology: none sent Condition: stable Disposition: floor Indications for Procedure: Altered mental status, rule out encephalitis, rule out Guillain-White syndrome Description of Procedure: Informed consent was obtained from patient. Very detailed risks and benefits of the procedure, and the indication of procedure was explained to the patient in detail in the presence of nurse. Patient was informed of the risk of infection, bleeding, numbness, back pain, and the features of post spinal headache and the treatment. Patient was placed in the sitting position on the side of the bed. The procedure was performed under strict aseptic conditions. L4 lumbar space was identified and marked. Low back region was sterilized with ChloraPrep and then with Betadine, and anesthetized with 1% lidocaine. A spinal needle 20-gauge, 3.5 inch inserted at L4 lumbar space. I tried a couple attempts, but was getting resistance. Then L3 space was identified and anesthetized. I was able to enter subarachnoid space in 2nd pass at this level. The spinal fluid was slightly blood-tinged in the beginning but then became colorless and clear. About 10 mL of spinal fluid was collected in 4 tubes. Stylette was reintroduced, spinal needle withdrawn. Band-Aid applied. Patient was recommended to lay flat for half an hour. Patient tolerated the procedure very well.
--- NOTE | 2025-02-27 16:46 | P.PN ---
Subjective Progress Note Date: 02/27/25 Patient is a 54 year old female with past medical history of type II fuc-aqmgffl-rzoupfvtg diabetes mellitus presented to the ED with altered mental status. ED documentation reviewed that states patient's friend helps provide the history. Patient's friend states that she received a call that the patient was confused and weak. Her friend went over to the patient's house when she found out that the patient had a fall yesterday as well as the day before as well as the patient being so weak that she has not been able to get out of bed and is confused. Patient was recently admitted to the hospital here on January 24 2025 with dehydration, hyponatremia, starvation ketosis, gastroparesis resulting in constipation and drug-induced nausea and vomiting. She was discharged home on January 25 2025 with MiraLAX as well as metoclopramide. Patient was hospitalized again at [facility] until the second of this month for dehydration and gastroparesis. Patient's friend mentions that the patient has not taken any of her medications prescribed after discharge. Patient is alert and oriented to time place and person but upon asking why is she in the hospital she keeps mentioning about low blood sugar and low A1c. No family present at bedside at the time of this interview. Upon calling the her son Francis, he mentioned that the patient started acting delusional today all of a sudden. She was well up until then. She was imagining things that weren't there. Aparently the patient just called her son 10 minutes ago to warn him about weird people out there. Patient's son is not aware if patient is on any diabetes medication, but he does mention that the patient hasn't had a glucose monitor in a while. Patient's son mentions that she was on Wegovy for a month and experienced 15-20 pounds weight loss, but she became hypoglycemic and had to be admitted to [facility]. Patient has been of Wegovy since 2 weeks now. Denies fever, chills, shortness of breath, cough, chest pain, palpitations, abdominal pain, nausea, vomiting, hematuria, dysuria, hematochezia, melena, headache, slurred speech, numbness, tingling, dizziness, lightheadedness, blurred vision, double vision. ED documentation reviewed. In the ED patient was treated with 1 L bolus of normal saline, 0.9 normal saline at 150 mL/h, ondansetron. 02/18 - She is seen and examined at bedside this morning, now on the 6th floor. She had no acute events overnight, and has no acute complaints morning. She remains confused, and unable to speak clearly conversation. She is able to formulate sentences without issue, however her responses are not always appropriate to the question being asked and do not always make sense. She cayetano nually talks about her being hypoglycemic, despite reassurances that she is not. 02/19 - Patient seen and examined at bedside. No acute events overnight. Mentation improved. Still having diarrhea. Had total of 3 bowel movements since midnight. 02/20 - She is seen and examined at bedside this morning. No acute events overnight. mentation seemingly improved, however remains confused. Diarrhea continues, however endorses only 1 episode overnight. 02/21 - She is seen and examined at bedside this morning. No acute events overnight. Mentation, same as she was yesterday. Able to say where she is, month, the date, her birthday however does not appear to have understanding as to why she is remaining in the hospital. Continues to have regular bouts of diarrhea, however friends/family know that it has been significantly improving from where it was. 02/22 - She is seen and examined at bedside this morning. No acute events overnight. As per neurology, plan is for lumbar puncture to be completed today. According to her cousin, who is accompanying her at bedside today, she notes that the biggest improvement is that she is aware that she is confused, which had previously not been the case, however other than that she does not feel as though the improvements have been started. 02/23 - She is seen and examined at bedside this morning. No acute events overnight and no acute complaints this morning. Mentation showing some signs of improvement, able to carry a fully coherent conversation with his morning. Best friend at bedside, notes she feels as though improvements are made, however not back to her usual baseline. 02/24 - She is seen and examined at bedside this morning. No acute events overnight no acute events morning. States she will be receiving last dose (03/13) of 200 mg IV thiamine. Additionally, discussed with the patient and her family/friends the desire to possibly be discharged to subacute rehab to further improve her strength and ability to function closer to her baseline. Discussed with case management, options will be discussed with the patient and her family, with likely discharge to occur tomorrow. Possibility of home with home care is most likely option at this point. 02/25 - She is seen and examined at bedside this morning. No acute events overnight, no acute concerns this morning. Labs are to be discharged yesterday, however friends were at bedside expressed their concerns with the possible discharge with home care services being set up and would like to speak to case management. As result of this, discharge was delayed. Discussed further with neurology, who recommended the possibility of starting her on IVIG, will be det ermined if that would be beneficial. Additionally, discussed with case management setting up home care prior to discharge. 02/26 - Pt with no new ocmplaint today. Discussed with neurology at bedside, and opting for 4 day course of IVIG for possibility of Guilllan-Toledo. This will begin today 02/27patient seen and evaluated bedside. No acute complaints. No events overnight. On second day of IVIG. REVIEW OF SYSTEMS: Pertinent positives and negatives noted in HPI. Physical Exam: General: nontoxic, no distress, appears at stated age Derm: warm, dry, intact Head: atraumatic, normocephalic, symmetric Eyes: EOMI, anicteric sclera Mouth: no lip lesion, mucus membranes moist Cardiovascular: S1 S2 reg, no murmur, rubs, or gallops Lungs: CTA bilateral, no rales, no accessory muscle use Abdominal: soft, non-tender to palpataion, no appreciable organomegaly Extremities: no gross muscle atrophy, no edema, no contractures Neuro: Alert, Oriented, CNII-XII grossly intact, gait normal Psych: well appearing, appropriate affect Assessment and plan: Patient is a 54 year old female with past medical history of type II vko-fjdmcxj-xtvplneeu diabetes mellitus presented to the ED with altered mental status. #Sepsis, secondary to C. difficile colitis #Wernicke's encephalopathy vs Guillan-Toledo #Severe folic acid deficiency -Continuing with oral vancomycin 125 mg 4 times daily -Continuing on folic acid 1 mg daily, theragran multivitamin daily -Completed course of IV thiamine; will begin at 100 mg daily thiamine p.o., which is a maintenance dose -Neurology following; day 2 out of 4 for IVIG for Guillain-White syndrome, vitamin A and C labs pending GQ 1B antibodies pending -Thiamine levels pending -Continue with NS 100 cc/h -Seizure precautions -Physical therapy and occupational therapy following #Type 2 diabetes mellitus -Sliding scale insulin -Monitor for hypoglycemia #Mild hypocalcemia, corrected calcium WNL -Calcium this morning -Continue to monitor BMP #Hypomagnesemia, resolved -Magnesium this morning -Continue to monitor magnesium levels #Hypokalemia, resolved -Potassium this morning -Continue to monitor potassium Resolved: #Lactic acidosis #Metabolic acidosis #Anemia #Starvation ketosis Chronic: #Txr-qunvmvr-dnvwawwps diabetes mellitus #Gastroparesis -Insulin sliding scale -POC glucose checks 2 hourly DVT ppx: Heparin 5000 units SQ every 12 hours GI PPx: Protonix 40 mg daily Code status: Full code F: NS 100 cc/h E: Replete as needed N: Consistent carbohydrate diet A: Ambulatory Anticipated discharge place: Home with home care Anticipated discharge time: Will be stable for discharge today following planning course, will discuss with case management time Dictation was produced using [employer] dictation software. please excuse any grammatical, word or spelling errors. I saw and evaluated the patient during the walter and critical portions of this encounter, and discussed the case in detail with the resident author of this note, I agree with the Assessment and Plan, and my changes, if any, are highlighted in blue. Objective - Vital Signs Vital signs: Vital Signs Temp 97.6 F 02/27/25 14:00 Pulse 96 02/27/25 14:00 Resp 16 02/27/25 14:00 BP 94/56 02/27/25 14:00 Pulse Ox 95 02/27/25 14:00 FiO2 Intake & Output 02/26/25 02/27/25 02/27/25 18:59 06:59 18:59 Intake Total 84.583 Balance 84.583 Intake: Intake, IV Titration 84.583 Amount Immune Globulin ( 84.583 Gammagard) 30 gm In Empty Bag 1 bag @ Per Protocol IV .Q0M ONE Rx#: [id number] Other: Voiding Method Toilet Toilet # Voids 1 2 - Labs CBC & Chem 7: 02/27/25 03:55 02/27/25 03:55 Labs: Abnormal Lab Results - Last 24 Hours (Table) 02/18/25 02/23/25 02/26/25 Range/Units 17:14 04:51 17:25 WBC (4.50-10.00) X 10*3/uL RBC (4.10-5.20) X 10*6/uL Hgb (12.0-15.0) g/dL Hct (37.2-46.3) % RDW (11.5-14.5) % Eosinophils # (0.04-0.35) X 10*3/uL Creatinine (0.6-1.5) mg/dL BUN/Creatinine Ratio (12.00-20.00) Ratio POC Glucose (mg/dL) 189 H (70-110) mg/dL Calcium (8.7-10.3) mg/dL Vitamin A 17 L (38-106) ug/dL Vitamin B1 13 L (38-122) ug/L 02/26/25 02/27/25 02/27/25 Range/Units 19:52 03:55 03:55 WBC 3.88 L (4.50-10.00) X 10*3/uL RBC 4.04 L (4.10-5.20) X 10*6/uL Hgb 11.2 L (12.0-15.0) g/dL Hct 34.9 L (37.2-46.3) % RDW 17.1 H (11.5-14.5) % Eosinophils # 0.02 L (0.04-0.35) X 10*3/uL Creatinine 0.5 L (0.6-1.5) mg/dL BUN/Creatinine Ratio 22.80 H (12.00-20.00) Ratio POC Glucose (mg/dL) 124 H (70-110) mg/dL Calcium 8.1 L (8.7-10.3) mg/dL Vitamin A (38-106) ug/dL Vitamin B1 (38-122) ug/L Microbiology - Last 24 Hours (Table) 02/22/25 18:15 CSF Gram Stain - Final Cerebral Spinal Fluid CSF Culture - Final
[2025-02-27 17:38] LABS: Glucose,Whole Blood 131 mg/dL (70-110)
[2025-02-27] MEDS ORDERED: THIAMINE 100 MG/ML 2 ML VIAL IVP SCH (18:00)
--- NOTE | 2025-02-27 18:00 | P.PN ---
Subjective Progress Note Date: 02/27/25 I am seeing the patient for the first time during this hospital visit. Please refer to Dr. Mace's note as well as Dr. Latham's note for further details. It seems my colleague, Dr. Mace he is concerned about Warnicke Korsakoff syndrome versus Flores Pringle variant of GBS. It seems the patient has altered mental status with some memory impairment, ophthalmoplegia. Patient is not a great historian but she did state that she does have underlying history of diabetes and she has been having diarrhea for 6-month as well as weakness in the lower extremity for 6 months then. She is not the best historian and at this moment she is not reliable. She had CSF study which was unremarkable in which the total protein was normal. She had comprehensive viral panel which was negative. It seems that she had B1 deficiency, folate deficiency, B6 deficiency and she has diarrhea. My colleague started her empirically on IVIG for 4 days starting yesterday, 02/26/2025 is concern of GBS variant. Objective - Vital Signs Vital signs: Vital Signs Temp 97.6 F 02/27/25 14:00 Pulse 96 02/27/25 14:00 Resp 16 02/27/25 14:00 BP 94/56 02/27/25 14:00 Pulse Ox 95 02/27/25 14:00 FiO2 Intake & Output 02/26/25 02/27/25 02/27/25 18:59 06:59 18:59 Intake Total 84.583 Balance 84.583 Intake: Intake, IV Titration 84.583 Amount Immune Globulin ( 84.583 Gammagard) 30 gm In Empty Bag 1 bag @ Per Protocol IV .Q0M ONE Rx#: [id number] Other: Voiding Method Toilet Toilet # Voids 1 2 - Exam General: Sitting in a recliner chair and is not in acute distress. Neuro: Somewhat limited. Awake alert oriented to self place. Is following simple commands. No aphasia Pupils are round about 4 mm and reactive to light. No facial weakness. No dysarthria. Motor uppers are 5 - to 5/5 bilaterally. Lowers, proximally is about 3-4, knee extension is 2-3, ankles are 4+. Sensation is normal to touch throughout. Reflex: 2+ in uppers and lowers are 0 throughout. - Labs CBC & Chem 7: 02/27/25 03:55 02/27/25 03:55 Labs: Abnormal Lab Results - Last 24 Hours (Table) 02/18/25 02/23/25 02/26/25 Range/Units 17:14 04:51 19:52 WBC (4.50-10.00) X 10*3/uL RBC (4.10-5.20) X 10*6/uL Hgb (12.0-15.0) g/dL Hct (37.2-46.3) % RDW (11.5-14.5) % Eosinophils # (0.04-0.35) X 10*3/uL Creatinine (0.6-1.5) mg/dL BUN/Creatinine Ratio (12.00-20.00) Ratio POC Glucose (mg/dL) 124 H (70-110) mg/dL Calcium (8.7-10.3) mg/dL Vitamin A 17 L (38-106) ug/dL Vitamin B1 13 L (38-122) ug/L 02/27/25 02/27/25 Range/Units 03:55 03:55 WBC 3.88 L (4.50-10.00) X 10*3/uL RBC 4.04 L (4.10-5.20) X 10*6/uL Hgb 11.2 L (12.0-15.0) g/dL Hct 34.9 L (37.2-46.3) % RDW 17.1 H (11.5-14.5) % Eosinophils # 0.02 L (0.04-0.35) X 10*3/uL Creatinine 0.5 L (0.6-1.5) mg/dL BUN/Creatinine Ratio 22.80 H (12.00-20.00) Ratio POC Glucose (mg/dL) (70-110) mg/dL Calcium 8.1 L (8.7-10.3) mg/dL Vitamin A (38-106) ug/dL Vitamin B1 (38-122) ug/L Microbiology - Last 24 Hours (Table) 02/22/25 18:15 CSF Gram Stain - Final Cerebral Spinal Fluid CSF Culture - Final Assessment and Plan Assessment: 1. The patient is a 54-year-old female who presents to the emergency department with altered mental status, likely due to metabolic encephalopathy. There is reported nonsensical speech with some slurring of speech, also has developed some memory disturbance. On examination, the patient has some difficulty answering questions that are asked and following some instructions. 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 Her reflexes are absent in the lower limbs. Flores Pringle variant of Guillain-White syndrome which I feel unlikely (CSF study is normal) and I feel it is more favorable of her thiamine deficiency and her multivitamin deficiencies 2. 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 Elevated CRP which is suggestive of inflammation 4. History of diabetes mellitus 5. History of medication induced mental status changes 6. Diabetes 7. Lactic acidosis 8. C. difficile colitis 9. Folic acid deficiency 10. Vitamin B6 deficiency 11. Vitamin C deficiency 12. Mild vitamin D deficiency Plan: 1. Patient's ophthalmoparesis has improved, but not resolved. Possibly related to Wernicke's Korsakoff syndrome and other multivitamin deficiencies. 2. EEG was performed, which was abnormal due to background slowing of moderate degree. No focal, lateralized or epileptiform activity was seen. 3. B12 810 methylmalonic acid 0.25 which is normal and ammonia < 9. Vitamin B6 < 2, folic acid < 2.0. Vitamin B12 810, vitamin D 25.8 TSH 1.15. Vitamin C 2 (2-19), copper 1006 normal. vitamin A (17 and normal is 38-106) and recommend correction. Pending zinc. We will check GQ 1B antibodies 4. vitamin B1 level 13 (normal is 38-122). Patient on high dose thiamine 250 mg IV PB daily since 02/20/2025 and I change it to 500 mg 3 times a day for 2 days. 5. RPR negative, hepatitis panel negative, HIV negative, influenza, RSV and zuluaga virus PCR negative. Urine drug screen negative. Blood alcohol level normal. Hemoglobin A1c 5.7. 6. Folate < 2.0. Patient on folate, vitamin C and B6 replacement. 7. MRI of the brain was limited because of patient's braces and motion degraded examination. No definitive evidence of intracranial mass, acute/subacute infarct. No abnormal enhancement within limitations. I personally reviewed MRI, agree with the findings. 8. CSF showed WBC 2, RBC 1, CSF glucose 74, CSF total protein 43(12-60). Comprehensive viral panel negative. MS panel negative. IgG synthesis rate 1.36, IgG index 0.65 and oligoclonal bands were present in the CSF, but the corresponding serum contains the same oligoclonal bands, this does not indicate CSF specific oligoclonal banding and is considered a negative study. CSF VDRL negative. CSF angiotensin converting enzyme <5, which is normal. 9. Dr. Mace started the patient on IVIG empirically 5 g per kg for 4 days for concern of suspected GBS started on 02/26/2025 and today is day #2/4. The plan is discussed with the nurse. Time with Patient: Less than 30
[2025-02-27] MEDS: IMMUNE GLOBULIN (GAMMAGARD) 30 GM in EMPTY BAG 1 BAG IV ONE (18:34)
[2025-02-27 20:19] LABS: Glucose,Whole Blood 128 mg/dL (70-110)
[2025-02-27] MEDS: THIAMINE 500 MG in SODIUM CHLORIDE 0.9% 50 ML IVPB SCH (20:55)
[2025-02-28 06:38] LABS: Glucose,Whole Blood 112 mg/dL (70-110)
[2025-02-28 06:42] LABS: Basophils # (A) 0.02 10*3/uL (0.00-0.10); Basophils % (A) 0.7 %; Eosinophils # (A) 0.04 10*3/uL (0.04-0.35); Eosinophils % (A) 1.3 %; HCT 34.2 % (37.2-46.3); HGB 11.3 g/dL (12.0-15.0); Lymphocytes # (A) 1.59 10*3/uL (0.90-5.00); MCH 28.3 pg (27.0-32.0); MCV 85.5 fL (80.0-97.0); Mean Platelet Volume 10.3 fL (9.5-12.2); Monocytes # (A) 0.22 10*3/uL (0.20-1.00); Monocytes % (A) 7.3 %; Neutrophils % (A) 36.7 %; Platelet Count 310 10*3/uL (140-440); RDW 17.1 % (11.5-14.5)
--- NOTE | 2025-02-28 12:40 | P.PN ---
Subjective Progress Note Date: 02/28/25 Patient is a 54 year old female with past medical history of type II jhj-tbfxonh-qtvmefbam diabetes mellitus presented to the ED with altered mental status. ED documentation reviewed that states patient's friend helps provide the history. Patient's friend states that she received a call that the patient was confused and weak. Her friend went over to the patient's house when she found out that the patient had a fall yesterday as well as the day before as well as the patient being so weak that she has not been able to get out of bed and is confused. Patient was recently admitted to the hospital here on January 24 2025 with dehydration, hyponatremia, starvation ketosis, gastroparesis resulting in constipation and drug-induced nausea and vomiting. She was discharged home on January 25 2025 with MiraLAX as well as metoclopramide. Patient was hospitalized again at [facility] until the second of this month for dehydration and gastroparesis. Patient's friend mentions that the patient has not taken any of her medications prescribed after discharge. Patient is alert and oriented to time place and person but upon asking why is she in the hospital she keeps mentioning about low blood sugar and low A1c. No family present at bedside at the time of this interview. Upon calling the her son Francis, he mentioned that the patient started acting delusional today all of a sudden. She was well up until then. She was imagining things that weren't there. Aparently the patient just called her son 10 minutes ago to warn him about weird people out there. Patient's son is not aware if patient is on any diabetes medication, but he does mention that the patient hasn't had a glucose monitor in a while. Patient's son mentions that she was on Wegovy for a month and experienced 15-20 pounds weight loss, but she became hypoglycemic and had to be admitted to [facility]. Patient has been of Wegovy since 2 weeks now. Denies fever, chills, shortness of breath, cough, chest pain, palpitations, abdominal pain, nausea, vomiting, hematuria, dysuria, hematochezia, melena, headache, slurred speech, numbness, tingling, dizziness, lightheadedness, blurred vision, double vision. ED documentation reviewed. In the ED patient was treated with 1 L bolus of normal saline, 0.9 normal saline at 150 mL/h, ondansetron. 02/18 - She is seen and examined at bedside this morning, now on the 6th floor. She had no acute events overnight, and has no acute complaints morning. She remains confused, and unable to speak clearly conversation. She is able to formulate sentences without issue, however her responses are not always appropriate to the question being asked and do not always make sense. She cayetano nually talks about her being hypoglycemic, despite reassurances that she is not. 02/19 - Patient seen and examined at bedside. No acute events overnight. Mentation improved. Still having diarrhea. Had total of 3 bowel movements since midnight. 02/20 - She is seen and examined at bedside this morning. No acute events overnight. mentation seemingly improved, however remains confused. Diarrhea continues, however endorses only 1 episode overnight. 02/21 - She is seen and examined at bedside this morning. No acute events overnight. Mentation, same as she was yesterday. Able to say where she is, month, the date, her birthday however does not appear to have understanding as to why she is remaining in the hospital. Continues to have regular bouts of diarrhea, however friends/family know that it has been significantly improving from where it was. 02/22 - She is seen and examined at bedside this morning. No acute events overnight. As per neurology, plan is for lumbar puncture to be completed today. According to her cousin, who is accompanying her at bedside today, she notes that the biggest improvement is that she is aware that she is confused, which had previously not been the case, however other than that she does not feel as though the improvements have been started. 02/23 - She is seen and examined at bedside this morning. No acute events overnight and no acute complaints this morning. Mentation showing some signs of improvement, able to carry a fully coherent conversation with his morning. Best friend at bedside, notes she feels as though improvements are made, however not back to her usual baseline. 02/24 - She is seen and examined at bedside this morning. No acute events overnight no acute events morning. States she will be receiving last dose (03/13) of 200 mg IV thiamine. Additionally, discussed with the patient and her family/friends the desire to possibly be discharged to subacute rehab to further improve her strength and ability to function closer to her baseline. Discussed with case management, options will be discussed with the patient and her family, with likely discharge to occur tomorrow. Possibility of home with home care is most likely option at this point. 02/25 - She is seen and examined at bedside this morning. No acute events overnight, no acute concerns this morning. Labs are to be discharged yesterday, however friends were at bedside expressed their concerns with the possible discharge with home care services being set up and would like to speak to case management. As result of this, discharge was delayed. Discussed further with neurology, who recommended the possibility of starting her on IVIG, will be det ermined if that would be beneficial. Additionally, discussed with case management setting up home care prior to discharge. 02/26 - Pt with no new ocmplaint today. Discussed with neurology at bedside, and opting for 4 day course of IVIG for possibility of [facility]. This will begin today 02/27patient seen and evaluated bedside. No acute complaints. No events overnight. On second day of IVIG. 02/28: Patient seen evaluated bedside. No acute plaints. No events overnight. On third day of IVIG. Second day of high-dose thiamine. REVIEW OF SYSTEMS: Pertinent positives and negatives noted in HPI. Physical Exam: General: nontoxic, no distress, appears at stated age Derm: warm, dry, intact Head: atraumatic, normocephalic, symmetric Eyes: EOMI, anicteric sclera Mouth: no lip lesion, mucus membranes moist Cardiovascular: S1 S2 reg, no murmur, rubs, or gallops Lungs: CTA bilateral, no rales, no accessory muscle use Abdominal: soft, non-tender to palpataion, no appreciable organomegaly Extremities: no gross muscle atrophy, no edema, no contractures Neuro: Alert, Oriented, CNII-XII grossly intact, gait normal Psych: well appearing, appropriate affect Assessment and plan: Patient is a 54 year old female with past medical history of type II irn-rjlxscr-dficlnmon diabetes mellitus presented to the ED with altered mental status. #Wernicke's encephalopathy vs [facility] #Severe folic acid deficiency #Severe vitamin B1 deficiency -Continuing on folic acid 1 mg daily, theragran multivitamin daily -Completed course of IV thiamine; will begin at 100 mg daily thiamine p.o., which is a maintenance dose -Neurology following; day 3 out of 4 for IVIG for Guillain-White syndrome, vitamin A and C labs pending GQ 1B antibodies pending -Seizure precautions -Physical therapy and occupational therapy following - vitamin B1 level 13 (normal is 38-122). Patient on day 2 of 2 of high dose thiamine 500 mg TID #Type 2 diabetes mellitus -Sliding scale insulin -Monitor for hypoglycemia #Mild hypocalcemia, corrected calcium WNL -Calcium this morning -Continue to monitor BMP Resolved: #Lactic acidosis #Metabolic acidosis #Anemia #Starvation ketosis #Hypokalemia #hypomagnesemia #Sepsis, secondary to C. difficile colitis Chronic: #Dtx-nueeapx-mplsaodnk diabetes mellitus #Gastroparesis -Insulin sliding scale -POC glucose checks 2 hourly DVT ppx: Heparin 5000 units SQ every 12 hours GI PPx: Protonix 40 mg daily Code status: Full code F: NS 100 cc/h E: Replete as needed N: Consistent carbohydrate diet A: Ambulatory Anticipated discharge place: Home with home care Anticipated discharge time: Will be stable for discharge today following planning course, will discuss with case management time Dictation was produced using [employer] dictation software. please excuse any grammatical, word or spelling errors. I saw and evaluated the patient during the walter and critical portions of this encounter, and discussed the case in detail with the resident author of this note, I agree with the Assessment and Plan, and my changes, if any, are highlighted in blue. Objective - Vital Signs Vital signs: Vital Signs Temp 98.0 F 02/28/25 07:10 Pulse 80 02/28/25 07:10 Resp 16 02/28/25 07:10 BP 106/72 02/28/25 07:10 Pulse Ox 94 L 02/28/25 07:10 FiO2 Intake & Output 02/27/25 02/28/25 02/28/25 18:59 06:59 18:59 Other: Voiding Method Toilet # Voids 1 1 - Labs CBC & Chem 7: 02/28/25 05:36 02/27/25 03:55 Labs: Abnormal Lab Results - Last 24 Hours (Table) 02/18/25 02/23/25 02/27/25 Range/Units 17:14 04:51 03:55 WBC 3.88 L (4.50-10.00) X 10*3/uL RBC 4.04 L (4.10-5.20) X 10*6/uL Hgb 11.2 L (12.0-15.0) g/dL Hct 34.9 L (37.2-46.3) % RDW 17.1 H (11.5-14.5) % Neutrophils # (1.80-7.70) 10*3/uL Eosinophils # 0.02 L (0.04-0.35) X 10*3/uL Creatinine (0.6-1.5) mg/dL BUN/Creatinine Ratio (12.00-20.00) Ratio POC Glucose (mg/dL) (70-110) mg/dL Calcium (8.7-10.3) mg/dL Vitamin A 17 L (38-106) ug/dL Vitamin B1 13 L (38-122) ug/L 02/27/25 02/27/25 02/27/25 Range/Units 03:55 17:35 20:18 WBC (4.50-10.00) X 10*3/uL RBC (4.10-5.20) X 10*6/uL Hgb (12.0-15.0) g/dL Hct (37.2-46.3) % RDW (11.5-14.5) % Neutrophils # (1.80-7.70) 10*3/uL Eosinophils # (0.04-0.35) X 10*3/uL Creatinine 0.5 L (0.6-1.5) mg/dL BUN/Creatinine Ratio 22.80 H (12.00-20.00) Ratio POC Glucose (mg/dL) 131 H 128 H (70-110) mg/dL Calcium 8.1 L (8.7-10.3) mg/dL Vitamin A (38-106) ug/dL Vitamin B1 (38-122) ug/L 02/28/25 02/28/25 Range/Units 05:36 06:36 WBC 3.00 L (4.50-10.00) X 10*3/uL RBC 4.00 L (4.10-5.20) X 10*6/uL Hgb 11.3 L (12.0-15.0) g/dL Hct 34.2 L (37.2-46.3) % RDW 17.1 H (11.5-14.5) % Neutrophils # 1.10 L (1.80-7.70) 10*3/uL Eosinophils # (0.04-0.35) X 10*3/uL Creatinine (0.6-1.5) mg/dL BUN/Creatinine Ratio (12.00-20.00) Ratio POC Glucose (mg/dL) 112 H (70-110) mg/dL Calcium (8.7-10.3) mg/dL Vitamin A (38-106) ug/dL Vitamin B1 (38-122) ug/L
[2025-02-28 12:50] LABS: Glucose,Whole Blood 106 mg/dL (70-110)
--- NOTE | 2025-02-28 12:58 | P.PN ---
Subjective Progress Note Date: 02/28/25 I am following-up with patient and again she feels she is making some improvement compared to initial presentation after her Thiamine was started. Denies new neurological issues. She feels her memory there is still gaps. Denies any new neurological issues. Objective - Vital Signs Vital signs: Vital Signs Temp 98.0 F 02/28/25 07:10 Pulse 80 02/28/25 07:10 Resp 16 02/28/25 07:10 BP 106/72 02/28/25 07:10 Pulse Ox 94 L 02/28/25 07:10 FiO2 Intake & Output 02/27/25 02/28/25 02/28/25 18:59 06:59 18:59 Intake Total 120 Balance 120 Intake: Oral 120 Other: Voiding Method Toilet # Voids 1 1 - Exam General: Sitting in a recliner chair and is not in acute distress. Neuro: Somewhat limited. Awake alert oriented to self, place and time. Correctly named objects (pen and glasses). Correctly stated current state. Is following simple commands. No aphasia Pupils are round about 4 mm and reactive to light. EOM is ?upward gaze bilat erally but otherwise normal in all direction without nystagmus. Visual cardoza are full to confrontation. No facial weakness. No dysarthria. Motor uppers are 5 - to 5/5 bilaterally. Lowers, proximally is about 3-4, knee extension is 2-3, ankles are 4+. Sensation is normal to touch throughout. Reflex: 2+ in uppers and lowers are 0 throughout. - Labs CBC & Chem 7: 02/28/25 05:36 02/27/25 03:55 Labs: Abnormal Lab Results - Last 24 Hours (Table) 02/18/25 02/27/25 02/27/25 Range/Units 17:14 17:35 20:18 WBC (4.50-10.00) 10*3/uL RBC (4.10-5.20) 10*6/uL Hgb (12.0-15.0) g/dL Hct (37.2-46.3) % RDW (11.5-14.5) % Neutrophils # (1.80-7.70) 10*3/uL POC Glucose (mg/dL) 131 H 128 H (70-110) mg/dL Vitamin B1 13 L (38-122) ug/L 02/28/25 02/28/25 Range/Units 05:36 06:36 WBC 3.00 L (4.50-10.00) 10*3/uL RBC 4.00 L (4.10-5.20) 10*6/uL Hgb 11.3 L (12.0-15.0) g/dL Hct 34.2 L (37.2-46.3) % RDW 17.1 H (11.5-14.5) % Neutrophils # 1.10 L (1.80-7.70) 10*3/uL POC Glucose (mg/dL) 112 H (70-110) mg/dL Vitamin B1 (38-122) ug/L Assessment and Plan Assessment: 1. The patient is a 54-year-old female who presents to the emergency department with altered mental status, likely due to metabolic encephalopathy. There is reported nonsensical speech with some slurring of speech, also has developed some memory disturbance. On examination, the patient has some difficulty answering questions that are asked and following some instructions. 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 Her reflexes are absent in the lower limbs. Flores Pringle variant of Guillain- White syndrome which I feel unlikely (CSF study is normal) and I feel it is more favorable of her thiamine deficiency and her multivitamin deficiencies 2. 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 Elevated CRP which is suggestive of inflammation 4. History of diabetes mellitus 5. History of medication induced mental status changes 6. Diabetes 7. Lactic acidosis 8. C. difficile colitis 9. Folic acid deficiency 10. Vitamin B6 deficiency 11. Vitamin C deficiency 12. Mild vitamin D deficiency Plan: 1. Patient's ophthalmoparesis has improved, but not resolved. Possibly related to Wernicke's Korsakoff syndrome and other multivitamin deficiencies. 2. EEG was performed, which was abnormal due to background slowing of moderate degree. No focal, lateralized or epileptiform activity was seen. 3. B12 810 methylmalonic acid 0.25 which is normal and ammonia < 9. Vitamin B6 < 2, folic acid < 2.0. Vitamin B12 810, vitamin D 25.8 TSH 1.15. Vitamin C 2 (2-19), copper 1006 normal. vitamin A (17 and normal is 38-106) and recommend correction. Pending zinc. We will check GQ 1B antibodies 4. vitamin B1 level 13 (normal is 38-122). I spoke with primary team and he notified me that patient received thiamine IV 500mg tid for 2 days then 250mg for 5 days. I will defer correction of thiamine to primary team. 5. RPR negative, hepatitis panel negative, HIV negative, influenza, RSV and zuluaga virus PCR negative. Urine drug screen negative. Blood alcohol level normal. Hemoglobin A1c 5.7. 6. Folate < 2.0. Patient on folate, vitamin C and B6 replacement. 7. MRI of the brain was limited because of patient's braces and motion degraded examination. No definitive evidence of intracranial mass, acute/subacute infarct. No abnormal enhancement within limitations. I personally reviewed MRI, agree with the findings. 8. CSF showed WBC 2, RBC 1, CSF glucose 74, CSF total protein 43(12-60). Comprehensive viral panel negative. MS panel negative. IgG synthesis rate 1.36, IgG index 0.65 and oligoclonal bands were present in the CSF, but the corresponding serum contains the same oligoclonal bands, this does not indicate CSF specific oligoclonal banding and is considered a negative study. CSF VDRL negative. CSF angiotensin converting enzyme <5, which is normal. 9. Dr. Mace started the patient on IVIG empirically 5 g per kg for 4 days for concern of suspected GBS started on 02/26/2025 and today is day #3/4. The plan is discussed with the primary team. Time with Patient: Less than 30
[2025-02-28 17:18] LABS: Glucose,Whole Blood 129 mg/dL (70-110)
[2025-02-28] MEDS: IMMUNE GLOBULIN (GAMMAGARD) 30 GM in EMPTY BAG 1 BAG IV ONE (17:26)
[2025-02-28 19:58] LABS: Glucose,Whole Blood 104 mg/dL (70-110)
[2025-03-01 05:52] LABS: Basophils # (A) 0.02 10*3/uL (0.00-0.10); Basophils % (A) 0.5 %; Eosinophils # (A) 0.03 10*3/uL (0.04-0.35); Eosinophils % (A) 0.8 %; HCT 33.7 % (37.2-46.3); HGB 11.1 g/dL (12.0-15.0); Lymphocytes % (A) 40.4 %; MCH 28.5 pg (27.0-32.0); MCHC 32.9 g/dL (32.0-37.0); MCV 86.6 fL (80.0-97.0); Mean Platelet Volume 9.9 fL (9.5-12.2); Monocytes # (A) 0.28 10*3/uL (0.20-1.00); Monocytes % (A) 7.1 %; Neutrophils # (A) 2.02 10*3/uL (1.80-7.70); Neutrophils % (A) 50.9 %; Platelet Count 342 10*3/uL (140-440); RBC 3.89 10*6/uL (4.10-5.20); RDW 17.3 % (11.5-14.5); WBC 3.96 10*3/uL (4.50-10.00)
[2025-03-01 06:03] LABS: African American GFR (CKD) >90 (>60 ml/min/1.73 sqM); Anion Gap 9 mmol/L; Blood Urea Nitrogen 12 mg/dL (7-17); Calcium 8.5 mg/dL (8.4-10.2); Carbon Dioxide 23 mmol/L (22-30); Chloride 107 mmol/L (98-107); Glucose 102 mg/dL (74-99); Non-African American GFR(CKD) >90 (>60 ml/min/1.73 sqM); Potassium 3.9 mmol/L (3.5-5.1); Sodium 139 mmol/L (137-145)
[2025-03-01 06:12] LABS: Glucose,Whole Blood 111 mg/dL (70-110)
[2025-03-01] MEDS ORDERED: THIAMINE 100 MG in SODIUM CHLORIDE 0.9% 50 ML IVPB SCH (09:00)
[2025-03-01] MEDS: THIAMINE 100 MG/ML 2 ML VIAL IVP SCH (10:46)
--- NOTE | 2025-03-01 11:26 | P.PN ---
Subjective Progress Note Date: 03/01/25 Patient is a 54 year old female with past medical history of type II adt-ijcxfjs-pcihtgznz diabetes mellitus presented to the ED with altered mental status. ED documentation reviewed that states patient's friend helps provide the history. Patient's friend states that she received a call that the patient was confused and weak. Her friend went over to the patient's house when she found out that the patient had a fall yesterday as well as the day before as well as the patient being so weak that she has not been able to get out of bed and is confused. Patient was recently admitted to the hospital here on January 24 2025 with dehydration, hyponatremia, starvation ketosis, gastroparesis resulting in constipation and drug-induced nausea and vomiting. She was discharged home on January 25 2025 with MiraLAX as well as metoclopramide. Patient was hospitalized again at [facility] until the second of this month for dehydration and gastroparesis. Patient's friend mentions that the patient has not taken any of her medications prescribed after discharge. Patient is alert and oriented to time place and person but upon asking why is she in the hospital she keeps mentioning about low blood sugar and low A1c. No family present at bedside at the time of this interview. Upon calling the her son Francis, he mentioned that the patient started acting delusional today all of a sudden. She was well up until then. She was imagining things that weren't there. Aparently the patient just called her son 10 minutes ago to warn him about weird people out there. Patient's son is not aware if patient is on any diabetes medication, but he does mention that the patient hasn't had a glucose monitor in a while. Patient's son mentions that she was on Wegovy for a month and experienced 15-20 pounds weight loss, but she became hypoglycemic and had to be admitted to [facility]. Patient has been of Wegovy since 2 weeks now. Denies fever, chills, shortness of breath, cough, chest pain, palpitations, abdominal pain, nausea, vomiting, hematuria, dysuria, hematochezia, melena, headache, slurred speech, numbness, tingling, dizziness, lightheadedness, blurred vision, double vision. ED documentation reviewed. In the ED patient was treated with 1 L bolus of normal saline, 0.9 normal saline at 150 mL/h, ondansetron. 02/18 - She is seen and examined at bedside this morning, now on the 6th floor. She had no acute events overnight, and has no acute complaints morning. She remains confused, and unable to speak clearly conversation. She is able to formulate sentences without issue, however her responses are not always appropriate to the question being asked and do not always make sense. She continually talks about her being hypoglycemic, despite reassurances that she is not. 02/19 - Patient seen and examined at bedside. No acute events overnight. Mentation improved. Still having diarrhea. Had total of 3 bowel movements since midnight. 02/20 - She is seen and examined at bedside this morning. No acute events overnight. mentation seemingly improved, however remains confused. Diarrhea continues, however endorses only 1 episode overnight. 02/21 - She is seen and examined at bedside this morning. No acute events overnight. Mentation, same as she was yesterday. Able to say where she is, month, the date, her birthday however does not appear to have understanding as to why she is remaining in the hospital. Continues to have regular bouts of diarrhea, however friends/family know that it has been significantly improving from where it was. 02/22 - She is seen and examined at bedside this morning. No acute events overnight. As per neurology, plan is for lumbar puncture to be completed today. According to her cousin, who is accompanying her at bedside today, she notes that the biggest improvement is that she is aware that she is confused, which had previously not been the case, however other than that she does not feel as though the improvements have been started. 02/23 - She is seen and examined at bedside this morning. No acute events overnight and no acute complaints this morning. Mentation showing some signs of improvement, able to carry a fully coherent conversation with his morning. Best friend at bedside, notes she feels as though improvements are made, however not back to her usual baseline. 02/24 - She is seen and examined at bedside this morning. No acute events overnight no acute events morning. States she will be receiving last dose (03/13) of 200 mg IV thiamine. Additionally, discussed with the patient and her family/friends the desire to possibly be discharged to subacute rehab to further improve her strength and ability to function closer to her baseline. Discussed with case management, options will be discussed with the patient and her family, with likely discharge to occur tomorrow. Possibility of home with home care is most likely option at this point. 02/25 - She is seen and examined at bedside this morning. No acute events overnight, no acute concerns this morning. Labs are to be discharged yesterday, however friends were at bedside expressed their concerns with the possible discharge with home care services being set up and would like to speak to case management. As result of this, discharge was delayed. Discussed further with neurology, who recommended the possibility of starting her on IVIG, will be dete rmined if that would be beneficial. Additionally, discussed with case management setting up home care prior to discharge. 02/26 - Pt with no new ocmplaint today. Discussed with neurology at bedside, and opting for 4 day course of IVIG for possibility of Guilllan-Monrovia. This will begin today 02/27patient seen and evaluated bedside. No acute complaints. No events overnight. On second day of IVIG. 02/28: Patient seen evaluated bedside. No acute complaints. No events overnight. On third day of IVIG. Second day of high-dose thiamine. 03/01: Patient seen evaluated bedside. No events overnight. No acute complaints. States she has been walking around in trying her best to remain active. REVIEW OF SYSTEMS: Pertinent positives and negatives noted in HPI. Physical Exam: General: nontoxic, no distress, appears at stated age Derm: warm, dry, intact Head: atraumatic, normocephalic, symmetric Eyes: EOMI, anicteric sclera Mouth: no lip lesion, mucus membranes moist Cardiovascular: S1 S2 reg, no murmur, rubs, or gallops Lungs: CTA bilateral, no rales, no accessory muscle use Abdominal: soft, non-tender to palpataion, no appreciable organomegaly Extremities: no gross muscle atrophy, no edema, no contractures Neuro: Alert, Oriented, CNII-XII grossly intact, gait normal Psych: well appearing, appropriate affect Data Received Today: Labs: WBC 3.9, Hgb 11.1 MCV 86.6, BUN 12, creatinine 0.41 Imaging: N/A Assessment and plan: Patient is a 54 year old female with past medical history of type II fyn-vpppakq-htiuoyact diabetes mellitus presented to the ED with altered mental status. #Wernicke's encephalopathy vs Guillan-Monrovia (less likely) #Severe folic acid deficiency #Severe vitamin B1 deficiency -Continuing on folic acid 1 mg daily, theragran multivitamin daily -Completed course of IV thiamine -Neurology following; day 4 out of 4 for IVIG for prophylactic treatment of suspected Guillain-White syndrome -Seizure precautions Patient will finish final course of IVIG this evening and we will plan to discharge tomorrow morning #Type 2 diabetes mellitus -Sliding scale insulin -Monitor for hypoglycemia #Mild hypocalcemia, corrected calcium WNL -Calcium this morning -Continue to monitor BMP Resolved: #Lactic acidosis #Metabolic acidosis #Anemia #Starvation ketosis #Hypokalemia #hypomagnesemia #Sepsis, secondary to C. difficile colitis Chronic: #Gug-tufpuvs-paplmoige diabetes mellitus #Gastroparesis -Insulin sliding scale -POC glucose checks 2 hourly, monitor for hypoglycemia DVT ppx: Heparin 5000 units SQ every 12 hours GI PPx: Protonix 40 mg daily Code status: Full code F: N/A E: Replete as needed N: Consistent carbohydrate diet A: Ambulatory Anticipated discharge place: Home with home care Anticipated discharge time: Plan to discharge tomorrow Dictation was produced using [employer] dictation software. please excuse any grammatical, word or spelling errors. I have seen and evaluated the patient today. Discussed with the resident and agree with the residents finding and plan as documented in the resident's note. Changes highlighted in blue font. Objective - Vital Signs Vital signs: Vital Signs Temp 97.9 F 03/01/25 07:50 Pulse 82 03/01/25 07:50 Resp 16 03/01/25 07:50 BP 124/86 03/01/25 07:50 Pulse Ox 97 03/01/25 07:50 FiO2 Intake & Output 02/28/25 03/01/25 03/01/25 18:59 06:59 18:59 Intake Total 402.583 Balance 402.583 Intake: Intake, IV Titration 42.583 Amount Immune Globulin ( 42.583 Gammagard) 30 gm In Empty Bag 1 bag @ Per Protocol IV .Q0M ONE Rx#: [id number] Oral 360 Other: Voiding Method Toilet # Voids 1 1 - Labs CBC & Chem 7: 03/01/25 05:29 03/01/25 05:29 Labs: Abnormal Lab Results - Last 24 Hours (Table) 02/28/25 03/01/25 03/01/25 Range/Units 17:16 05:29 05:29 WBC 3.96 L (4.50-10.00) 10*3/uL RBC 3.89 L (4.10-5.20) 10*6/uL Hgb 11.1 L (12.0-15.0) g/dL Hct 33.7 L (37.2-46.3) % RDW 17.3 H (11.5-14.5) % Eosinophils # 0.03 L (0.04-0.35) 10*3/uL Creatinine 0.41 L (0.52-1.04) mg/dL Glucose 102 H (74-99) mg/dL POC Glucose (mg/dL) 129 H (70-110) mg/dL 03/01/25 Range/Units 06:10 WBC (4.50-10.00) 10*3/uL RBC (4.10-5.20) 10*6/uL Hgb (12.0-15.0) g/dL Hct (37.2-46.3) % RDW (11.5-14.5) % Eosinophils # (0.04-0.35) 10*3/uL Creatinine (0.52-1.04) mg/dL Glucose (74-99) mg/dL POC Glucose (mg/dL) 111 H (70-110) mg/dL
--- NOTE | 2025-03-01 11:37 | P.PN ---
Subjective Progress Note Date: 03/01/25 I am following-up with patient and feels doing better day to day compared to initial presentation. Still feels having memory relapse. Objective - Vital Signs Vital signs: Vital Signs Temp 97.9 F 03/01/25 07:50 Pulse 82 03/01/25 07:50 Resp 16 03/01/25 07:50 BP 124/86 03/01/25 07:50 Pulse Ox 97 03/01/25 07:50 FiO2 Intake & Output 02/28/25 03/01/25 03/01/25 18:59 06:59 18:59 Intake Total 402.583 Balance 402.583 Intake: Intake, IV Titration 42.583 Amount Immune Globulin ( 42.583 Gammagard) 30 gm In Empty Bag 1 bag @ Per Protocol IV .Q0M ONE Rx#: [id number] Oral 360 Other: Voiding Method Toilet # Voids 1 1 - Exam General: Sitting in a recliner chair and is not in acute distress. Neuro: Somewhat limited. Awake alert oriented to self, place and time. Correctly named objects (pen and glasses). Correctly stated current state. Is following simple commands. No aphasia Pupils are round about 4 mm and reactive to light. EOM is ?upward gaze bilaterally but otherwise normal in all direction without nystagmus. Visual cardoza are full to confrontation. No facial weakness. No dysarthria. Motor uppers are 5 - to 5/5 bilaterally. Lowers, proximally is about 3-4, knee extension is 2-3, ankles are 4+. Sensation is normal to touch throughout. Reflex: 2+ in uppers and lowers are 0 throughout. - Labs CBC & Chem 7: 03/01/25 05:29 03/01/25 05:29 Labs: Abnormal Lab Results - Last 24 Hours (Table) 02/28/25 03/01/25 03/01/25 Range/Units 17:16 05:29 05:29 WBC 3.96 L (4.50-10.00) 10*3/uL RBC 3.89 L (4.10-5.20) 10*6/uL Hgb 11.1 L (12.0-15.0) g/dL Hct 33.7 L (37.2-46.3) % RDW 17.3 H (11.5-14.5) % Eosinophils # 0.03 L (0.04-0.35) 10*3/uL Creatinine 0.41 L (0.52-1.04) mg/dL Glucose 102 H (74-99) mg/dL POC Glucose (mg/dL) 129 H (70-110) mg/dL 03/01/25 Range/Units 06:10 WBC (4.50-10.00) 10*3/uL RBC (4.10-5.20) 10*6/uL Hgb (12.0-15.0) g/dL Hct (37.2-46.3) % RDW (11.5-14.5) % Eosinophils # (0.04-0.35) 10*3/uL Creatinine (0.52-1.04) mg/dL Glucose (74-99) mg/dL POC Glucose (mg/dL) 111 H (70-110) mg/dL Assessment and Plan Assessment: 1. The patient is a 54-year-old female who presents to the emergency department with altered mental status, likely due to metabolic encephalopathy. There is reported nonsensical speech with some slurring of speech, also has developed some memory disturbance. On examination, the patient has some difficulty answering questions that are asked and following some instructions. 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 Her reflexes are absent in the lower limbs. Flores Pringle variant of Guillain- White syndrome which I feel unlikely (CSF study is normal) and I feel it is more favorable of her thiamine deficiency and her multivitamin deficiencies 2. 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 Elevated CRP which is suggestive of inflammation 4. History of diabetes mellitus 5. History of medication induced mental status changes 6. Diabetes 7. Lactic acidosis 8. C. difficile colitis 9. Folic acid deficiency 10. Vitamin B6 deficiency 11. Vitamin C deficiency 12. Mild vitamin D deficiency Plan: 1. Patient's ophthalmoparesis has improved, but not resolved. Possibly related to Wernicke's Korsakoff syndrome and other multivitamin deficiencies. 2. EEG was performed, which was abnormal due to background slowing of moderate degree. No focal, lateralized or epileptiform activity was seen. 3. B12 810 methylmalonic acid 0.25 which is normal and ammonia < 9. Vitamin B6 < 2, folic acid < 2.0. Vitamin B12 810, vitamin D 25.8 TSH 1.15. Vitamin C 2 (2-19), copper 1006 normal. vitamin A (17 and normal is 38-106) and recommend correction. Pending zinc. We will check GQ 1B antibodies 4. vitamin B1 level 13 (normal is 38-122). I spoke with primary team and was notified that patient received thiamine IV 500mg tid for 2 days then 250mg for 5 days. Currently is on IV thiamine 100mg daily. 5. RPR negative, hepatitis panel negative, HIV negative, influenza, RSV and zuluaga virus PCR negative. Urine drug screen negative. Blood alcohol level normal. Hemoglobin A1c 5.7. 6. Folate < 2.0. Patient on folate, vitamin C and B6 replacement. 7. MRI of the brain was limited because of patient's braces and motion degraded examination. No definitive evidence of intracranial mass, acute/subacute infarct. No abnormal enhancement within limitations. I personally reviewed MRI, agree with the findings. 8. CSF showed WBC 2, RBC 1, CSF glucose 74, CSF total protein 43(12-60). Comprehensive viral panel negative. MS panel negative. IgG synthesis rate 1.36, IgG index 0.65 and oligoclonal bands were present in the CSF, but the corresponding serum contains the same oligoclonal bands, this does not indicate CSF specific oligoclonal banding and is considered a negative study. CSF VDRL negative. CSF angiotensin converting enzyme <5, which is normal. 9. Dr. Mace started the patient on IVIG empirically 5 g per kg for 4 days for concern of suspected GBS started on 02/26/2025 and today is day #4/4. 10. Upon discharge recommend the patient to follow-up with a neurologist as an outpatient within 2 weeks. Also recommend outpatient neuropsych evaluation for detailed memory testing. 11. Recommend EMG with NCS of bilateral lower extremities as outpatient. Otherwise, no additional neurological work-up. The plan is discussed with the primary team. Time with Patient: Less than 30
[2025-03-01 12:04] LABS: Glucose,Whole Blood 123 mg/dL (70-110)
[2025-03-01 16:56] LABS: Glucose,Whole Blood 104 mg/dL (70-110)
[2025-03-01] MEDS: IMMUNE GLOBULIN (GAMMAGARD) 30 GM in EMPTY BAG 1 BAG IV ONE (17:45)
[2025-03-01 20:59] LABS: Glucose,Whole Blood 99 mg/dL (70-110)
[2025-03-02 05:14] LABS: Basophils # (A) 0.01 10*3/uL (0.00-0.10); Basophils % (A) 0.2 %; Eosinophils # (A) 0.04 10*3/uL (0.04-0.35); Eosinophils % (A) 0.9 %; HGB 10.8 g/dL (12.0-15.0); Lymphocytes % (A) 37.9 %; MCH 29.4 pg (27.0-32.0); MCHC 33.8 g/dL (32.0-37.0); MCV 87.2 fL (80.0-97.0); Mean Platelet Volume 10.1 fL (9.5-12.2); Monocytes # (A) 0.38 10*3/uL (0.20-1.00); Monocytes % (A) 8.5 %; Neutrophils # (A) 2.33 10*3/uL (1.80-7.70); Neutrophils % (A) 52.1 %; Platelet Count 414 10*3/uL (140-440); RBC 3.67 10*6/uL (4.10-5.20); RDW 17.3 % (11.5-14.5); WBC 4.48 10*3/uL (4.50-10.00)
[2025-03-02 05:34] LABS: African American GFR (CKD) >90 (>60 ml/min/1.73 sqM); Anion Gap 9 mmol/L; Blood Urea Nitrogen 16 mg/dL (7-17); Calcium 8.6 mg/dL (8.4-10.2); Carbon Dioxide 24 mmol/L (22-30); Chloride 106 mmol/L (98-107); Glucose 96 mg/dL (74-99); Non-African American GFR(CKD) >90 (>60 ml/min/1.73 sqM); Sodium 139 mmol/L (137-145)
[2025-03-02 06:14] LABS: Glucose,Whole Blood 95 mg/dL (70-110)
[2025-03-02 12:42] LABS: Glucose,Whole Blood 106 mg/dL (70-110)
[2025-03-02 14:10] VITALS: BP 117/86; PULSE 95; RESP 17; TEMP 98.7
--- NOTE | 2025-03-02 15:33 | P.DS ---
Providers Date of admission: 02/17/25 21:06 Discharge Diagnosis: Wernicke's cephalopathy Severe folic acid deficiency Severe vitamin B1 deficiency Nco-rhtyouc-ijrvhkvfs diabetes mellitus Mild hypocalcemia Lactic acidosis Metabolic acidosis Anemia Starvation ketosis Hypokalemia Hypomagnesemia Sepsis secondary to C. difficile colitis Gastroparesis Acute encephalopathy Hospital Course: Patient is a 54 year old female with past medical history of type II ilf-zzptyxk-udlfgstvy diabetes mellitus presented to the ED with altered mental status. ED documentation reviewed that states patient's friend helps provide the history. Patient's friend states that she received a call that the patient was confused and weak. Her friend went over to the patient's house when she found out that the patient had a fall yesterday as well as the day before as well as the patient being so weak that she has not been able to get out of bed and is confused. Patient was recently admitted to the hospital here on January 24 2025 with dehydration, hyponatremia, starvation ketosis, gastroparesis resulting in constipation and drug-induced nausea and vomiting. She was discharged home on January 25 2025 with MiraLAX as well as metoclopramide. Patient was hospitalized again at [facility] until the second of this month for dehydration and gastroparesis. Patient's friend mentions that the patient has not taken any of her medications prescribed after discharge. Patient is alert and oriented to time place and person but upon asking why is she in the hospital she keeps mentioning about low blood sugar and low A1c. No family present at bedside at the time of this interview. Upon calling the her son Francis, he mentioned that the patient started acting delusional today all of a sudden. She was well up until then. She was imagining things that weren't there. Aparently the patient just called her son 10 minutes ago to warn him about weird people out there. Patient's son is not aware if patient is on any diabetes medication, but he does mention that the patient hasn't had a glucose monitor in a while. Patient's son mentions that she was on Wegovy for a month and experienced 15-20 pounds weight loss, but she became hypoglycemic and had to be admitted to [facility]. Patient has been of Wegovy since 2 weeks now. Denies fever, chills, shortness of breath, cough, chest pain, palpitations, abdominal pain, nausea, vomiting, hematuria, dysuria, hematochezia, melena, headache, slurred speech, numbness, tingling, dizziness, lightheadedness, blurred vision, double vision. ED documentation reviewed. In the ED patient was treated with 1 L bolus of normal saline, 0.9 normal saline at 150 mL/h, ondansetron. Patient was admitted for further evaluation of acute encephalopathy in the setting of sepsis. While admitted patient was positive for C. difficile infection and was placed on oral vancomycin. Neurology was consulted on the case for her acute encephalopathy. Brain MRI was completed, her braces and motion degraded examination, however no definitive evidence of an intracranial mass, acute/subacute infarct, or abnormal enhancement within limitations. EEG showed background slowing of moderate degree, no focal, lateralized or epileptiform activity was seenWhile admitted patient had extensive possibility of having Warnicke Korsakoff syndrome versus Guillain-White syndrome. EEG showed background slowing of moderate degree, no focal, lateralized or epileptiform activity was seen. Upon further laboratory evaluation patient found to have severe thiamine deficiency. Of note, labs alone are not best indicator of diagnosis thiamine deficiency. However based on clinical presentation, she was treated with IV thiamine infusion. Labs also showed severe folate deficiency. She was also prophylactically put on IVIG, by neurology, for suspicion of Guillain-White syndrome. Ultimately her symptoms resolved and was able to walk and communicate. She does have intermittent bouts of confusion and memory loss but will need to be further worked up outpatient with neurology. She is being discharged on a multivitamin regimen. She is to follow-up with her PCP and neurology. She can be discharged home today. Patient seen and examined at bedside. Vital signs reviewed and stable. Physical examination: Vital signs reviewed General: non toxic, no distress, appears at stated age, normal weight Derm: no unusual rashes/lesions, warm Head: atraumatic, normocephalic, symmetric Eyes: EOMI, anicteric sclera, pupils equal round reactive to light ENT: Nose and ears atraumatic Mouth: no lip lesion, mucus membranes moist Cardiovascular: S1S2 reg, no murmur, positive dorsalis pedis pulse bilateral, no edema Lungs: CTA bilateral, no rhonchi, no rales, no accessory muscle use Abdominal: soft, nontender to palpation, no guarding Ext: muscle strength 5 out of 5 in all 4 extremities grossly, no gross muscle atrophy Neuro: CN II-XI grossly intact, no gross focal neuro deficits Psych: Alert, oriented to person, place, and time A total of greater than 30 minutes of time were spent preparing this complex discharge summary. Patient was discharge on March 02, 2025 at 9:43 AM. Yolanda Hurd MD PGY-1 IM Dictation was produced using [employer] dictation software. please excuse any grammatical, word or spelling errors. I have seen and evaluated the patient today. Discussed with the resident and agree with the residents finding and plan as documented in the resident's note. Changes highlighted in blue font. Expected date of discharge: 03/02/25 Attending physician: Chas Sherwood MD Consults: 02/18/25 03:42 Consult Physician Routine Consulting Provider: Travis Romo Consult Reason/Comments: Altered mental status Do you want consulting provider notified?: Yes Primary care physician: Nj Castañeda Patient Condition at Discharge: Fair Plan - Discharge Summary Discharge Rx Participant: No New Discharge Prescriptions: New Folic Acid 1 mg PO DAILY #60 tab Multivitamins, Thera [Multivitamin (formulary)] 1 each PO DAILY #60 tab Pyridoxine [Vitamin B-6] 100 mg PO DAILY #60 tab Thiamine HCl [Vitamin B-1] 100 mg PO DAILY #60 tablet Continue Estriol 80%/Auhegrneb-Eolwmpukhvag-Grxsfdezabrz 1.25-30-0.5mg/Gm 2 pump TOPICAL DAILY Ondansetron Odt [Zofran ODT] 4 mg PO Q8HR PRN PRN Reason: Nausea And Vomiting Omeprazole 40 mg PO DAILY Magnesium Oxide [Mag-Ox] 400 mg PO DAILY Vitamin D+Vitamin K (Unknown Dose) 1 tab PO DAILY Potassium Chloride ER [K-Dur 20] 20 meq PO DAILY Famotidine/Ca Carb/Mag Hydrox [Pepcid Complete Tablet Chew] 1 tab PO BID Metoclopramide HCl [Reglan] 5 mg PO QID polyethylene glycoL 3350 [Miralax] 17 gm PO DAILY PRN PRN Reason: Constipation Discharge Medication List Estriol 80%/Omnewvakv-Mupnclvadtgj-Gqteuxmtndxg 1.25-30-0.5mg/Gm 2 pump TOPICAL DAILY 01/24/25 [History] Famotidine/Ca Carb/Mag Hydrox [Pepcid Complete Tablet Chew] 1 tab PO BID 02/17/25 [History] Magnesium Oxide [Mag-Ox] 400 mg PO DAILY 02/17/25 [History] Metoclopramide HCl [Reglan] 5 mg PO QID 02/17/25 [History] Omeprazole 40 mg PO DAILY 02/17/25 [History] Ondansetron Odt [Zofran ODT] 4 mg PO Q8HR PRN 02/17/25 [History] Potassium Chloride ER [K-Dur 20] 20 meq PO DAILY 02/17/25 [History] Vitamin D+Vitamin K (Unknown Dose) 1 tab PO DAILY 02/17/25 [History] polyethylene glycoL 3350 [Miralax] 17 gm PO DAILY PRN 02/17/25 [History] Folic Acid 1 mg PO DAILY #60 tab 02/24/25 [Rx] Multivitamins, Thera [Multivitamin (formulary)] 1 each PO DAILY #60 tab 02/24/25 [Rx] Pyridoxine [Vitamin B-6] 100 mg PO DAILY #60 tab 02/24/25 [Rx] Thiamine HCl [Vitamin B-1] 100 mg PO DAILY #60 tablet 02/24/25 [Rx] Follow up Appointment(s)/Referral(s): [facility], [NON-STAFF] - 1-2 Days [facility] [NON-STAFF] - As Needed (WALKER) Nj Castañeda MD [Primary Care Provider] - 1-2 days Patient Instructions/Handouts: Thiamine (By mouth), C. Diff (Clostridioides Difficile) Infection (GEN), Encephalopathy (GEN), Diabetes and Nutrition (GEN) Activity/Diet/Wound Care/Special Instructions: Please be sure to follow-up with your primary care physician within 1-3 days of discharge. Please be sure to take all medications, vitamin supplementation, antibiotics as prescribed. Discharge/Stand Alone Forms: Area PCPs Discharge Disposition: HOME SELF-CARE
--- NOTE | 2025-03-05 21:46 | CDI ---
Documentation Clarification Form Date: 03/05/2025 09:26:38 PM From: Molly Willis Phone: Admit Date: 02/17/2025 09:06:00 PM Patient Name: Mica Bazan Visit Number: [id number] Discharge Date: 03/02/2025 04:16:00 PM ATTENTION: The Clinical Documentation Specialists (CDI) and [facility] Coding Staff appreciate your assistance in clarifying documentation. Please respond to the clarification below the line at the bottom and electronically sign. The CDI & [facility] Coding staff will review the response and follow-up if needed. Please note: Queries are made part of the Legal Health Record. If you have any questions, please contact the author of this message via ITS. Doctor/Provider: Stefan Mace Malnutrition is documented per Progress Note 02/20-03/01. Additional clarification regarding the severity of malnutrition is requested. History/Risk Factors: 54yo F, Sepsis, secondary to C. difficilecolitis, Wernicke's encephalopathy, severefolic acid deficiency, NIDDMII w gastroparesis, hypocalcemia,hypomagnesemia,hypokalemia,lactic/metabolic acidosis, anemia Clinical Indicators: Current BMI: 27.1 Starvationketosis She is eating healthy and finishing her meals well. thiamine is 13 Treatment: monitored Please clarify the severity of malnutrition, if known: [ ] Mild Protein-Calorie Malnutrition [ ] Moderate Protein-Calorie Malnutrition [ X ] Severe Protein-Calorie Malnutrition [ ] Malnutrition, unknown severity [ ] Other condition, please specify [ ] Unable to Determine I would call it severe just because she was deficient on numerous numerous vitamins, to the point of severely affecting her overall health. However I would also check with her primary physician and dietitian. (Template Last Revised: May 2023) MTDD
== END 2025-03-02 16:16 | disposition home or self-care (01) | DRG 871 ==
LOC: EC 15:13 → 6NMEDSUR 21:06 → OBSVTOIN 21:06 → 6NMEDSUR 21:36
PROVIDERS: ADMIT Internal Medicine; ATTEND Internal Medicine
PROC: 009U3ZZ Drainage of Spinal Canal, Percutaneous Approach (ICD-10-PCS; principal; 2025-02-22)
DX: A41.4 Sepsis due to anaerobes (principal); E43 Unspecified severe protein-calorie malnutrition; G93.41 Metabolic encephalopathy; A04.72 Enterocolitis due to Clostridium difficile, not specified as recurrent; E87.29 Other acidosis; E51.2 Wernicke's encephalopathy; F05 Delirium due to known physiological condition; E88.89 Other specified metabolic disorders; E11.43 Type 2 diabetes mellitus with diabetic autonomic (poly)neuropathy; D64.9 Anemia, unspecified; E87.1 Hypo-osmolality and hyponatremia; D72.825 Bandemia; E53.8 Deficiency of other specified B group vitamins; K31.84 Gastroparesis; T50.916A Underdosing of multiple unspecified drugs, medicaments and biological substances, initial encounter; E87.6 Hypokalemia; R47.81 Slurred speech; E53.1 Pyridoxine deficiency; E54 Ascorbic acid deficiency; E55.9 Vitamin D deficiency, unspecified; R41.3 Other amnesia; H49.9 Unspecified paralytic strabismus; K29.50 Unspecified chronic gastritis without bleeding; Z91.138 Patient's unintentional underdosing of medication regimen for other reason; Z87.891 Personal history of nicotine dependence; W19.XXXA Unspecified fall, initial encounter; Z79.899 Other long term (current) drug therapy; Z68.27 Body mass index [BMI] 27.0-27.9, adult
CPT/HCPCS: 36415; 70450; 70553; 71046; 80048; 80053; 80074; 80143; 80179; 80306; 80320; 81003; 82040; 82042; 82140; 82164; 82180; 82306; 82525; 82607; 82746; 82784; 82945; 83036; 83520; 83605; 83630; 83735; 83873; 83916; 83921; 84132; 84157; 84207; 84425; 84443; 84484; 84590; 84630; 85025; 85027; 85610; 85652; 85730; 86140; 86592; 86704; 86705; 86706; 86707; 86708; 86709; 86780; 86803; 87040; 87045; 87046; 87070; 87205; 87324; 87340; 87350; 87390; 87496; 87498; 87517; 87521; 87522; 87529; 87636; 87798; 89050; 93005; 95816; 96360; 96361; 99285